=== PATIENT | male | born 1935 | race Caucasian/White ===

== ENCOUNTER 2016-10-04 20:19 | Inpatient (IN) | payer MEDICARE, OTHER ==
[2016-10-04] MEDS ORDERED: NITROGLYCERIN SL TABS 0.4 MG TAB SUBLINGUAL STA (20:38)
[2016-10-04] MEDS ORDERED: ASPIRIN 81 MG CHEW PO STA (20:38)
[2016-10-04 21:08] LABS: Basophils % (A) 1 %; CH 30.5; CHCM 33.6; Eosinophils # (A) 0.2 k/uL (0-0.7); Eosinophils % (A) 3 %; HCT 37.8 % (39.0-53.0); HDW 2.64; HGB 12.7 gm/dL (13.0-17.5); Luc # (Auto) 0.16; Luc % (Auto) 3; Lymphocytes % (A) 32 %; MCH 30.6 pg (25.0-35.0); MCHC 33.6 g/dL (31.0-37.0); Monocytes # (A) 0.4 k/uL (0-1.0); Monocytes % (A) 6 %; Neutrophils # (A) 3.5 k/uL (1.3-7.7); Neutrophils % (A) 56 %; RBC 4.15 m/uL (4.30-5.90); RDW 13.6 % (11.5-15.5); WBC 6.2 k/uL (3.8-10.6); WBC (Perox) 6.24
[2016-10-04 21:24] LABS: Partial Thromboplastin Time 23.5 sec (22.0-30.0); Prothrombin Time 10.4 sec (9.0-12.0)
[2016-10-04 21:32] LABS: ALT 36 U/L (21-72); AST 25 U/L (17-59); Alkaline Phosphatase 63 U/L (38-126); Anion Gap 9 mmol/L; Blood Urea Nitrogen 21 mg/dL (9-20); Calcium 9.4 mg/dL (8.4-10.2); Carbon Dioxide 28 mmol/L (22-30); Chloride 106 mmol/L (98-107); Glucose 119 mg/dL (74-99); Magnesium 1.6 mg/dL (1.6-2.3); Non-African American GFR(MDRD) >60 (>60 ml/min/1.73 sqM); Potassium 4.1 mmol/L (3.5-5.1); Sodium 143 mmol/L (137-145); Total Bilirubin 0.4 mg/dL (0.2-1.3)
--- NOTE | 2016-10-04 21:38 | XR ---
EXAMINATION TYPE: XR chest 1V portable DATE OF EXAM: 10/04/2016 9:12 PM COMPARISON: August 12, 2000 HISTORY: Hypertension, pain TECHNIQUE: Single frontal view of the chest is obtained. FINDINGS: EKG leads noted. There is no focal air space opacity, pleural effusion, or pneumothorax see n. The cardiac silhouette size is within normal limits. The osseous structures are intact. IMPRESSION: No acute process.
--- NOTE | 2016-10-04 21:41 | ED ---
Chest Pain HPI - General Chief Complaint: Chest Pain Stated Complaint: Dr Sent Time Seen by Provider: 10/04/16 20:37 Source: patient, RN notes reviewed Mode of arrival: ambulatory Limitations: no limitations - History of Present Illness Initial Comments: This patient is an 80-year-old man who complains of having some intermittent right-sided chest pains for the past few days. Is not able to characterize the sensation very well, other than calling it "light pains." He indicates the right chest, states that the pains last a few seconds, and that this morning he did have some sweating but not with any of the other episodes. The patient was seen in [facility] and had an EKG and was cleared then followed up today with Dr. Lindsay who stated that he wanted to have the patient admitted, but was reportedly called away having to go to the hospital emergently. MD Complaint: chest pain -: days(s) Onset: during rest Pain Location: right chest Pain Radiation: none Severity: mild Quality: other (Patient is not able to characterize) Consistency: intermittent Improves With: nothing Worsens With: nothing Anginal Symptoms: diaphoresis Treatments Prior to Arrival: none - Related Data Home Medications Medication Instructions Recorded Confirmed Multivitamin [Men's Multi-Vitamin] 1 tab PO DAILY 03/08/14 10/04/16 Aspirin EC [Ecotrin Low Dose] 81 mg PO DAILY 08/11/16 10/04/16 Isosorbide Mononitrate [Isosorbide 30 mg PO QAM 09/06/16 10/04/16 Mononitrate ER] Lisinopril [Zestril] 20 mg PO QAM 09/06/16 10/04/16 Previous Rx's Medication Instructions Recorded Atorvastatin [Lipitor] 20 mg PO DAILY #30 08/14/16 Carvedilol [Coreg] 3.125 mg PO BID-W/MEALS #60 tab 08/14/16 Clopidogrel [Plavix] 75 mg PO DAILY #30 tab 08/14/16 Nitroglycerin Sl Tabs [Nitrostat] 0.4 mg SUBLINGUAL Q5M PRN #25 tab 08/14/16 Allergies Allergy/AdvReac Type Severity Reaction Status Date / Time zolpidem tartrate Allergy Severe Rash/Hives Verified 10/04/16 21:17 [From Ambien] lorazepam [From Ativan] Allergy Unknown Verified 10/04/16 21:17 Penicillins Allergy Unknown Verified 10/04/16 21:17 Review of Systems ROS Statement: Those systems with pertinent positive or pertinent negative responses have been documented in the HPI. ROS Other: All systems not noted in ROS Statement are negative. Constitutional: Denies: fever, chills Respiratory: Denies: cough, dyspnea Cardiovascular: Reports: as per HPI, chest pain. Denies: palpitations, dyspnea on exertion, orthopnea, edema, syncope Gastrointestinal: Denies: abdominal pain, nausea, vomiting Genitourinary: Denies: dysuria, hematuria Musculoskeletal: Denies: back pain Skin: Denies: rash Neurological: Denies: headache, weakness, numbness Psychiatric: Denies: anxiety EKG Findings - EKG Results: EKG: interpreted by LEATHAD, sinus rhythm, normal axis EKG shows: bradycardia (Rate approximately 56 bpm) - Blocks, [place], Hypertrophy, ST Abn: AV and intraventricular conduction: 1 AV block Repolarization changes or abnormalities: early repolarization due to LVH Past Medical History Past Medical History: Cancer, Hyperlipidemia, Hypertension, Myocardial Infarction ([place]), Skin Disorder, Vascular Disorder Additional Past Medical History / Comment(s): Colon/rectal cancer-chemo, 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 psoriasis. kidney stones. fx. neck & back from a fall years ago, R eye cataract. History of Any Multi-Drug Resistant Organisms: None Reported Past Surgical History: Appendectomy, Bladder Surgery, Bowel Resection, Cholecystectomy, Heart Catheterization With Stent, Orthopedic Surgery Additional Past Surgical History / Comment(s): 09/11/16 PTCA with stent to PDA branch of the RCA. Other surgical hx: 08/11/16 CARDIAC STENT. LEFT CATARACT. COLON RESECTION WITH COLOSTOMY. URETERAL STENT/RIGHT GROIN STENT. Carotid surg. ILLIAC STENT 06-02-14. Vertebral stent. Right shoulder surg. Lithotripsy. Past Anesthesia/Blood Transfusion Reactions: No Reported Reaction Date of Last Stent Placement:: 08/11/16 Past Psychological History: No Psychological Hx Reported Smoking Status: Former smoker Past Alcohol Use History: Rare Additional Past Alcohol Use History / Comment(s): STARTED SMOKING AT AGE 18- SMOKED 1 PPD, QUIT 1960'S Past Drug Use History: None Reported - Past Family History Father Additional Family Medical History / Comment(s): AGE 90 HEART Mother Family Medical History: Myocardial Infarction ([place]) Additional Family Medical History / Comment(s): AT AGE 60 MASSIVE [place] General Exam Limitations: no limitations General appearance: alert, in no apparent distress Head exam: Present: atraumatic, normocephalic Eye exam: Present: normal appearance Respiratory exam: Present: normal lung sounds bilaterally. Absent: respiratory distress, wheezes, rales, rhonchi, stridor, chest wall tenderness Cardiovascular Exam: Present: regular rate, normal rhythm, normal heart sounds. Absent: systolic murmur, diastolic murmur, rubs, gallop GI/Abdominal exam: Present: soft. Absent: distended, tenderness, guarding, rebound, mass, pulsatile mass, hernia Extremities exam: Present: normal inspection, normal capillary refill. Absent: pedal edema, calf tenderness Back exam: Present: normal inspection. Absent: CVA tenderness (R), CVA tenderness (L) Neurological exam: Present: alert Skin exam: Present: warm, dry, intact, normal color. Absent: rash, cyanosis, diaphoretic, erythema, petechiae, pallor, mottled Course Vital Signs 10/04/16 10/04/16 10/04/16 20:29 20:43 22:05 Temperature 97.1 F L Pulse Rate 60 59 L 55 L Respiratory 18 18 18 Rate Blood Pressure 137/64 150/71 157/70 O2 Sat by Pulse 97 97 96 Oximetry Disposition Clinical Impression: Chest pain Disposition: ADMITTED IP TO THIS HOSP Condition: Fair
[2016-10-04 21:47] LABS: Creatine Kinase MB 1.2 ng/mL (0.0-2.4); Troponin I 0.012 ng/mL (0.000-0.034)
[2016-10-04] MEDS ORDERED: NITROGLYCERIN SL TABS 0.4 MG TAB SUBLINGUAL PRN (22:42)
[2016-10-05 02:45] LABS: Cholesterol 178 mg/dL (<200); HDL Cholesterol 22 mg/dL (40-60)
[2016-10-05 02:59] LABS: Triglycerides 647 mg/dL (<150)
[2016-10-05 03:01] LABS: Creatine Kinase MB 0.9 ng/mL (0.0-2.4); Troponin I 0.016 ng/mL (0.000-0.034)
[2016-10-05] MEDS: CARVEDILOL 3.125 MG TAB PO SCH ×2 (07:26→18:32)
[2016-10-05] MEDS: ATORVASTATIN 20 MG TAB PO SCH (07:27)
[2016-10-05] MEDS: CLOPIDOGREL 75 MG TAB PO SCH (07:28)
[2016-10-05] MEDS: ISOSORBIDE MONONITRATE ER 30 MG TAB.ER.24H PO SCH (07:28)
[2016-10-05] MEDS: MULTIVITAMINS, THERA 1 EACH TAB PO SCH (07:29)
[2016-10-05] MEDS: ASPIRIN 325 MG TAB PO SCH (07:31)
[2016-10-05] MEDS ORDERED: LISINOPRIL 20 MG TAB PO SCH (09:00)
[2016-10-05 09:47] LABS: Creatine Kinase MB 0.8 ng/mL (0.0-2.4); Troponin I 0.018 ng/mL (0.000-0.034)
[2016-10-05] MEDS ORDERED: LISINOPRIL 20 MG TAB PO ONE (12:16)
--- NOTE | 2016-10-05 16:52 | HP ---
DATE OF ADMISSION: 10/05/2016. CHIEF COMPLAINT: Chest pain. HISTORY OF PRESENT ILLNESS: This is an 80-year-old white male who recently had myocardial infarction and cardiac catheterization and stent placements and the patient started experiencing some chest pain on the right side and this was light and was coming and going but no radiation. No associated shortness of breath and the patient apparently went to [place] emergency room and the EKG and other evaluations were negative for any cardiac chest pain. Following this patient saw Dr. Lindsay his dispatch manager and Dr. Lindsay felt that he had to be hospitalized and further evaluated. Accordingly, patient came to [facility] emergency room, [facility] emergency room and patient was evaluated in the ER and then admitted to the hospital for further evaluation and treatment. His EKG did not show any acute changes and troponin was 0.012 and cardiac enzymes were within normal limits. Sodium is 143, potassium 4.1, BUN 21, creatinine 0.9, and cholesterol 178, his CBC showed a WBC count of 6.7 and hemoglobin 12.7 and platelet count 221. The patient was admitted to the hospital for further evaluation and treatment. His past medical history reveals that he has coronary artery disease and has had a myocardial infarction in the past and also has had stent placements in the past. He also has peripheral vascular disease and has had a stent placement in the iliac artery and he has a history of rectal cancer and has had surgery and radiation treatment. He also has hypertensive cardiovascular disease, hyperlipidemia. His current medications include: 1. Aspirin 325 mg p.o. daily. 2. Atorvastatin 20 mg daily. 3. Coreg 3.125 mg p.o. daily. 4. Plavix 25 mg p.o. daily. 5. Imdur 30 mg p.o. daily. 6. Lisinopril 20 mg p.o. daily. 7. Nitroglycerine sublingual p.r.n. He does not smoke and he does not drink alcohol. He has questionable allergy to PENICILLIN AND LORAZAPAM. Family history is strongly positive for cancer and heart disease. REVIEW OF SYSTEMS: Patient denies any headache. Appetite has been good. Bowels sounds are regular. He has chest pain as mentioned before. He has no cough. He has no abdominal pain. He has no polyuria or dysuria. He has no neurological symptoms. PHYSICAL EXAMINATION: Reveals an 80-year-old white male, well-nourished and well developed. He is alert and oriented. He is in no acute distress. There is no jaundice. There is no generalized lymphadenopathy. There are no petechiae or bruises. Pulse 80 per minute, pulse is 66 per minute, regular. Blood pressure 150/70. There is no jaundice. There is no generalized lymphadenopathy. There are no petechiae or bruises. Examination of the ENT negative. Neck is supple. There is no jugular venous distention. There is no goiter. There is no carotid bruit. Heart is in sinus rhythm. Lungs are clear to auscultation and percussion. ABDOMEN: Soft and nontender. There is no mass palpable. Examination of the lower extremities reveal no pitting edema. Neurologic examination does not reveal any localizing signs. IMPRESSION: 1. Chest pain, rule out unstable angina. 2. Coronary artery disease, status post myocardial infarction and also past history of stent placement. 3. Hypertensive cardiovascular disease. 4. Past history of rectal cancer. 5. History of nephrolithiasis and history of stent placement. 6. Peripheral vascular disease, status post stent placement in the iliac artery. 7. Low back pain and has a history of back surgery. PLAN: The patient will be admitted to the hospital. His heart will be monitored with telemetry and serial EKGs and cardiac enzymes. We will have dispatch manager, Dr. Lindsay see the patient in consultation. Prognosis is guarded. The diagnoses, prognosis, and therapeutic plans were discussed in detail with the patient.
--- NOTE | 2016-10-06 00:32 | P.CRDCN ---
History of Present Illness Consult date: 10/05/16 Chief complaint: Chest discomfort History of present illness: This is a pleasant 80-year-old gentleman with a past medical history significant for coronary artery disease and status post stenting of the RCA and left circumflex and no one C dear residual coronary artery disease involving the mid LAD, hypertension, dyslipidemia, was sent to the emergency room by myself for further evaluation. The patient was in his usual state of health that about 2 days ago when he started experiencing chest discomfort as sharp kind of discomfort in the mid of the chest. I saw the patient in the office at [facility] yesterday and he was experiencing chest discomfort. I referred him to be admitted to the hospital. The EKG showed sinus mechanism with ST changes seems to be the same as before. He underwent serial cardiac enzymes came in to be unremarkable. The patient's blood pressure continues to be out of control and I am concerning about hypertensive emergency and chest discomfort secondary to hypertensive emergency. I increase the dose of lisinopril to 20 mg by mouth twice a day. We'll continue following up with the patient and adjust her blood pressure medication to get his blood pressure below 1 40 mmHg. If he continues to have chest discomfort I will consider proceeding with a heart catheterization. Past Medical History Past Medical History: Coronary Artery Disease (CAD), Cancer, Chest Pain / Angina , Hyperlipidemia, Hypertension, Myocardial Infarction ([place]), Osteoarthritis ([place]) , Renal Disease, Skin Disorder, Vascular Disorder Additional Past Medical History / Comment(s): 1998 Colon/rectal cancer-colectomy /colostomy/chemo,radiation, psoriasis, kidney stones, fx. neck & back/ concussion from a fall years ago, 2006 pneumonia with bacteremia, diverticular dx. Last Myocardial Infarction Date:: 08/11/16 History of Any Multi-Drug Resistant Organisms: None Reported Past Surgical History: Appendectomy, Bladder Surgery, Bowel Resection, Cholecystectomy, Heart Catheterization With Stent, Orthopedic Surgery Additional Past Surgical History / Comment(s): 09/11/16 PTCA with stent to PDA branch of the RCA. Other surgical hx: 08/11/16 CARDIAC STENT. LEFT/RIGHT CATARACT, COLON RESECTION WITH COLOSTOMY, colonoscopies, bilateral iliac STENTs. R Carotid angioplasty, vertebral stent, right shoulder surg for small cracked bone, cystoscopies, lithotripsy, right ureteral stent, lumbar spurs removed, cervical fusion, feeding tube post cervical sx, laparotomy with extensive lysis of adhesions. Past Anesthesia/Blood Transfusion Reactions: No Reported Reaction Date of Last Stent Placement:: 09/11/16 Past Psychological History: No Psychological Hx Reported Additional Psychological History / Comment(s): Pt resides with his spouse. He is independent. Smoking Status: Former smoker Past Alcohol Use History: Rare Additional Past Alcohol Use History / Comment(s): STARTED SMOKING AT AGE 18- SMOKED 1 PPD, QUIT about 1970. Past Drug Use History: None Reported - Past Family History Father Additional Family Medical History / Comment(s): AGE 90 HEART Mother Family Medical History: Myocardial Infarction ([place]) Additional Family Medical History / Comment(s): AT AGE 60 MASSIVE [place] Medications and Allergies Home Medications Medication Instructions Recorded Confirmed Type Multivitamin [Men's Multi-Vitamin] 1 tab PO DAILY 03/08/14 10/04/16 History Aspirin EC [Ecotrin Low Dose] 81 mg PO DAILY 08/11/16 10/04/16 History Isosorbide Mononitrate [Isosorbide 30 mg PO QAM 09/06/16 10/04/16 History Mononitrate ER] Lisinopril [Zestril] 20 mg PO QAM 09/06/16 10/04/16 History Allergies Allergy/AdvReac Type Severity Reaction Status Date / Time zolpidem tartrate Allergy Severe Rash/Hives Verified 10/04/16 21:17 [From Ambien] lorazepam [From Ativan] Allergy Unknown Verified 10/04/16 21:17 Penicillins Allergy Unknown Verified 10/04/16 21:17 Physical Exam Vitals: Vital Signs Temp Pulse Pulse Resp BP BP BP 10/05/16 23:21 51 L 18 181/86 10/05/16 20:00 53 L 18 10/05/16 19:43 98.6 F 54 L 18 169/72 10/05/16 16:06 168/64 10/05/16 15:55 98.0 F 55 L 16 186/75 10/05/16 11:50 188/86 10/05/16 11:31 98.0 F 50 L 18 192/90 10/05/16 10:42 58 L 14 159/81 10/05/16 09:23 52 L 14 167/77 10/05/16 08:18 54 L 14 185/80 10/05/16 07:20 66 15 186/82 10/05/16 06:54 51 L 18 194/84 10/05/16 04:00 49 L 18 166/72 10/05/16 03:00 49 L 18 152/67 10/05/16 01:00 56 L 18 157/72 Pulse Ox 10/05/16 23:21 96 10/05/16 20:00 10/05/16 19:43 96 10/05/16 16:06 10/05/16 15:55 94 L 10/05/16 11:50 10/05/16 11:31 97 10/05/16 10:42 97 10/05/16 09:23 96 10/05/16 08:18 95 10/05/16 07:20 97 10/05/16 06:54 95 10/05/16 04:00 95 10/05/16 03:00 95 10/05/16 01:00 95 Intake and Output 10/05/16 10/05/16 10/06/16 14:59 22:59 06:59 Intake Total 118 118 Balance 118 118 Intake: Oral 118 118 Other: Weight 76.4 kg Patient Weight 10/06/16 06:59 Weight 76.4 kg - Constitutional General appearance: no acute distress - Respiratory Respiratory: bilateral: CTA - Cardiovascular Rhythm: regular Heart sounds: normal: S1, S2 Abnormal Heart Sounds: systolic murmur Results 10/04/16 21:02 10/04/16 21:02 Cardiac Enzymes 10/05/16 10/05/16 Range/Units 02:15 09:00 CK-MB (CK-2) 0.9 0.8 (0.0-2.4) ng/mL Troponin I 0.016 0.018 (0.000-0.034) ng/mL Lipids 10/05/16 Range/Units 02:15 Triglycerides 647 H (<150) mg/dL Cholesterol 178 (<200) mg/dL HDL Cholesterol 22 L (40-60) mg/dL Current Medications Generic Name Dose Route Start Last Admin Trade Name Freq PRN Reason Stop Dose Admin Aspirin 325 mg 10/05/16 09:00 10/05/16 07:31 Aspirin PO 325 mg DAILY SERGO Administration Atorvastatin Calcium 20 mg 10/05/16 09:00 10/05/16 07:27 Lipitor PO 20 mg DAILY SERGO Administration Carvedilol 3.125 mg 10/05/16 07:30 10/05/16 18:32 Coreg PO 3.125 mg BID-W/MEALS SERGO Administration Clopidogrel Bisulfate 75 mg 10/05/16 09:00 10/05/16 07:28 Plavix PO 75 mg DAILY SERGO Administration Isosorbide Mononitrate 30 mg 10/05/16 09:00 10/05/16 07:28 Imdur PO 30 mg QAM SERGO Administration Lisinopril 20 mg 10/06/16 09:00 Zestril PO BID [facility] Multivitamins 1 each 10/05/16 09:00 10/05/16 07:29 Theragran PO 1 each DAILY [facility] Administration Nitroglycerin 0.4 mg 10/04/16 22:42 Nitrostat SUBLINGUAL Q5M PRN Chest Pain Sodium Chloride 10 ml 10/05/16 09:00 10/05/16 11:16 Saline Flush IV Not Given BID SERGO Intake and Output 10/05/16 10/05/16 10/06/16 14:59 22:59 06:59 Intake Total 118 118 Balance 118 118 Intake: Oral 118 118 Other: Weight 76.4 kg Patient Weight 10/06/16 06:59 Weight 76.4 kg Assessment and Plan Plan: Assessment #1 hypertension emergency #2 chest discomfort #3 known CAD #4 multiple comorbid conditions Plan #1 the patient was ruled out for acute coronary event #2 increase the dose of lisinopril to 20 mg by mouth twice a day #3 continue following up with the patient
[2016-10-06] MEDS: CARVEDILOL 3.125 MG TAB PO SCH ×2 (08:03→19:08)
[2016-10-06] MEDS: ASPIRIN 325 MG TAB PO SCH (08:03)
[2016-10-06] MEDS: CLOPIDOGREL 75 MG TAB PO SCH (08:03)
[2016-10-06] MEDS: LISINOPRIL 20 MG TAB PO SCH ×2 (08:04→20:35)
[2016-10-06] MEDS: ATORVASTATIN 20 MG TAB PO SCH (08:04)
[2016-10-06] MEDS: MULTIVITAMINS, THERA 1 EACH TAB PO SCH (08:04)
[2016-10-06] MEDS: ISOSORBIDE MONONITRATE ER 30 MG TAB.ER.24H PO SCH (08:04)
[2016-10-06] MEDS ORDERED: amLODIPine 10 MG TAB PO SCH (14:30)
--- NOTE | 2016-10-06 15:43 | PN ---
Mr. Derrick Hill is doing fairly well from cardiac standpoint. He has not had any further chest discomfort. No dizziness or lightheadedness. His blood pressure is still elevated. He has known coronary disease with status post coronary artery stenting and he is awaiting possible repeat cardiac catheterization. However, this is being delayed because of his elevated blood pressure readings. Past medical history of coronary artery disease and colon cancer, appendectomy. On examination, heart rate is in 40s, afebrile, 98.1 degrees Fahrenheit, blood pressure is 178/72 mmHg Head and neck examination is normal. Heart sounds are normal. Lungs are clear to auscultation. Extremities are warm, no edema. This is a very soft systolic ( ) audible. IMPRESSION: 1. Uncontrolled hypertension. 2. Coronary artery disease, status post coronary artery stenting and awaiting repeat catheterization ( ). SUGGEST: Add amlodipine 10 mg p.o. daily to current regimen. Continue Coreg 3.125 mg twice daily. Continue lisinopril 20 mg twice daily. ( ) blood pressure is better controlled, we can proceed with coronary angiography.
--- NOTE | 2016-10-06 16:09 | PN ---
DATE OF SERVICE: 10/06/2016 This is an 80-year-old white male who was admitted to the hospital with hypertensive emergency and the patient recently had a myocardial infarction and cardiac catheterization and stent placement. The patient developed some right chest pain and went to [place] [facility] and he also saw Dr. Lindsay his asbestos shingle roofer and any acute cardiac event was ruled out. The patient was admitted to the hospital for further evaluation and treatment of hypertension. The patient has been placed back on his previous home medications and lisinopril has been increased to 20 mg p.o. b.i.d. Patient today is fairly comfortable, denies any chest pain or shortness of breath and blood pressure has been still on the higher side and it is not stable. His vital signs are otherwise stable. Dr. Frausto is going to see the patient. He denies any shortness of breath, chest pain or any abdominal discomfort. We will continue monitoring his blood pressure and will make adjustment of the medications and when his blood pressure is stable, he will be discharged home when it is okay with the asbestos shingle roofer. The diagnoses, prognosis, and therapeutic plans were discussed in detail with the patient.
[2016-10-07] MEDS: ATORVASTATIN 20 MG TAB PO SCH (08:16)
[2016-10-07] MEDS: ISOSORBIDE MONONITRATE ER 30 MG TAB.ER.24H PO SCH (08:16)
[2016-10-07] MEDS: CARVEDILOL 3.125 MG TAB PO SCH ×2 (08:16→18:12)
[2016-10-07] MEDS: ASPIRIN 325 MG TAB PO SCH (08:16)
[2016-10-07] MEDS: MULTIVITAMINS, THERA 1 EACH TAB PO SCH (08:17)
[2016-10-07] MEDS: LISINOPRIL 20 MG TAB PO SCH ×2 (08:17→21:08)
[2016-10-07] MEDS: CLOPIDOGREL 75 MG TAB PO SCH (08:17)
[2016-10-07] MEDS: amLODIPine 10 MG TAB PO SCH (13:00)
--- NOTE | 2016-10-07 14:19 | PN ---
DATE OF SERVICE: 10/07/2016 This is an 80-year-old white male who was admitted with uncontrolled hypertension and he recently had an acute myocardial infarction and has had a cardiac catheterization and has stent placements and patient initially started as right-sided chest pain and he was seen in [place] emergency room and a cardiac event causing the chest pain was ruled out and Dr. Lindsay saw the patient and he recommended getting hospitalized because of uncontrolled hypertension. Patient was placed back on his previous medications and he was seen by Dr. Frausto in consultation and he has increased the lisinopril to 20 mg b.i.d. and also has started on amlodipine. Today patient's blood pressure seems to be under control and it is 154/78 and his blood pressure is controlled and stabilized, Dr. Frausto is planning to have a coronary angiogram. His vital signs are stable. He denies any chest pain or shortness of breath. No acute cardiorespiratory problems. Prognosis guarded.
--- NOTE | 2016-10-07 14:47 | P.PN ---
Subjective Patient is doing well. No chest discomfort no undue shortness of breath no dizziness lightheadedness or palpitations Review of systems: No fever chills or rigors, no cough, phlegm or expectoration , no nausea, vomiting or diarrhea, no hematuria, dysuria, no musculoskeletal complaints, no strokes or seizures, no skin lesions. On examination his blood pressure control is improving Heart sounds are normal No murmurs or gallops normal S1 normal S2 Breath sounds are normal no rhonchi no crackles Abdomen soft nontender Extremities warm no edema Impression Uncontrolled hypertension, improving Coronary artery disease Recurrent angina Plan Continue amlodipine Discussed with Dr. Lindsay Coronary angiography on Saturday after blood pressure remains well controlled Objective - Vital Signs Vital signs: Vital Signs Temp 97.8 F 10/07/16 08:00 Pulse 53 L 10/07/16 12:00 Resp 16 10/07/16 12:00 BP 147/64 10/07/16 12:00 Pulse Ox 96 10/07/16 13:00 Intake & Output 10/06/16 10/07/16 10/07/16 18:59 06:59 18:59 Intake Total 500 Balance 500 Intake: Oral 500 Other: Voiding Method Toilet Toilet Toilet - Labs CBC & Chem 7: 10/04/16 21:02 10/04/16 21:02
[2016-10-08] MEDS: CLOPIDOGREL 75 MG TAB PO SCH (09:25)
[2016-10-08] MEDS: ISOSORBIDE MONONITRATE ER 30 MG TAB.ER.24H PO SCH (09:25)
[2016-10-08] MEDS: LISINOPRIL 20 MG TAB PO SCH ×2 (09:25→21:49)
[2016-10-08] MEDS: ASPIRIN 325 MG TAB PO SCH (09:25)
[2016-10-08] MEDS: CARVEDILOL 3.125 MG TAB PO SCH ×2 (09:26→18:29)
[2016-10-08] MEDS: MULTIVITAMINS, THERA 1 EACH TAB PO SCH (09:26)
[2016-10-08] MEDS ORDERED: SODIUM CHLORIDE 0.9% 1,000 ML in EMPTY BAG 1 BAG IV ONE (10:09)
--- NOTE | 2016-10-08 10:39 | PN ---
Mr. Hill is lying comfortably in bed. Denies any chest discomfort, dizziness, lightheadedness. His blood pressure is still elevated at between 150 to 160 millimeters of Hg. Head and neck examination is normal. Heart sounds are normal. Breath sounds are normal. No rhonchi. No crackles. Heart sounds. No murmurs or gallops. ABDOMEN: Soft, nontender. EXTREMITIES: Warm. No edema. IMPRESSION: 1. Hypertension. 2. Known coronary artery disease. 3. Recurrent episodes of angina, for which he was admitted. SUGGEST: Add Dyazide today to antihypertensive regimen and proceed with coronary angiogram tomorrow with Dr. Lindsay.
[2016-10-08] MEDS: TRIAMTERENE-HCTZ 37.5-25MG 1 EACH CAP PO SCH (11:16)
[2016-10-08] MEDS: ATORVASTATIN 20 MG TAB PO SCH (14:23)
[2016-10-08] MEDS: amLODIPine 10 MG TAB PO SCH (14:23)
--- NOTE | 2016-10-08 20:15 | PN ---
DATE OF SERVICE: 10/08/2016 This 80-year-old white male who was admitted with persistently high blood pressure and the right anterior chest pain and patient was admitted to the hospital for further evaluation and treatment. Patient prior to admission, patient saw Dr. Lindsay and he recommended getting admitted to the hospital and since admission, the patient was seen by Dr. Frausto in consultation. The patient's blood pressure is getting fairly under good control. His blood pressure today is 144/74. He denies any chest pain and shortness of breath and he has no shortness of breath. His heart is in sinus rhythm. Lungs are clear. There are no acute cardiorespiratory problems. Dr. Frausto is recommending for him to have coronary angiogram, which will be done tomorrow by Dr. Lindsay. Otherwise his vital signs are stable. Prognosis is guarded.
[2016-10-09] MEDS: LISINOPRIL 20 MG TAB PO SCH ×2 (06:54→21:24)
[2016-10-09] MEDS: ATORVASTATIN 20 MG TAB PO SCH (06:54)
[2016-10-09] MEDS: ISOSORBIDE MONONITRATE ER 30 MG TAB.ER.24H PO SCH (06:54)
[2016-10-09] MEDS: CLOPIDOGREL 75 MG TAB PO SCH (06:54)
[2016-10-09] MEDS: CARVEDILOL 3.125 MG TAB PO SCH ×2 (06:54→17:29)
[2016-10-09] MEDS: TRIAMTERENE-HCTZ 37.5-25MG 1 EACH CAP PO SCH (06:55)
[2016-10-09] MEDS: ASPIRIN 325 MG TAB PO SCH (06:55)
[2016-10-09] MEDS: amLODIPine 10 MG TAB PO SCH (17:29)
[2016-10-09] MEDS: MULTIVITAMINS, THERA 1 EACH TAB PO SCH (17:29)
--- NOTE | 2016-10-09 18:12 | PN ---
DATE OF SERVICE: 10/09/2016 This 80-year-old white male who is known to have coronary artery disease and has had recent stent placements and also recent acute myocardial infarction and patient was admitted because he has some right-sided chest pain and very severe hypertension. The patient was seen by Dr. Frausto in consultation and he was following the patient. His blood pressure is under control now and Dr. Frausto recommended him to have a cardiac catheterization because of chest pain. Dr. Lindsay has scheduled him for cardiac catheterization for tomorrow. His vital signs are stable. Heart is in sinus rhythm. Lungs are clear. Patient states that he had some chest discomfort on the right side this morning, but he is doing okay now. The plan is for him to go for a cardiac catheterization tomorrow. The overall prognosis is guarded.
[2016-10-10] MEDS: ASPIRIN 325 MG TAB PO SCH (05:55)
[2016-10-10] MEDS: CLOPIDOGREL 75 MG TAB PO SCH (05:55)
[2016-10-10] MEDS: ATORVASTATIN 20 MG TAB PO SCH (05:56)
[2016-10-10] MEDS: ISOSORBIDE MONONITRATE ER 30 MG TAB.ER.24H PO SCH (05:56)
[2016-10-10] MEDS: CARVEDILOL 3.125 MG TAB PO SCH ×2 (05:56→17:13)
[2016-10-10] MEDS: TRIAMTERENE-HCTZ 37.5-25MG 1 EACH CAP PO SCH (05:56)
[2016-10-10] MEDS: LISINOPRIL 20 MG TAB PO SCH ×2 (05:56→21:17)
[2016-10-10] MEDS ORDERED: SODIUM CHLORIDE 0.9% 1,000 ML IV ONE (07:29)
[2016-10-10] MEDS: MIDAZOLAM 2 MG/2 ML VIAL IVP ONE ×2 (07:44→07:54)
[2016-10-10] MEDS ORDERED: LIDOCAINE 2% INJ 20 MG/ML SQ ONE (07:46)
[2016-10-10] MEDS ORDERED: BIVALIRUDIN BOLUS 250 MG/50 ML IV ONE (08:15)
[2016-10-10] MEDS ORDERED: BIVALIRUDIN 250 MG in SODIUM CHLORIDE 0.9% 50 ML IV ONE (08:16)
[2016-10-10] MEDS ORDERED: ADENOSINE 90 MG in SODIUM CHLORIDE 0.9% 60 ML IVP ONE (08:28)
[2016-10-10] MEDS ORDERED: fentaNYL (PF) 50 MCG/ML 2 ML AMP IV ONE (08:30)
[2016-10-10] MEDS: NITROGLYCERIN 1000MCG/10ML SYRINGE INTRACORON ONE ×2 (08:41→08:49)
[2016-10-10] MEDS ORDERED: IOHEXOL 350 MG/ML 100 ML BOTTLE INJ ONE (08:55)
[2016-10-10] MEDS ORDERED: CLOPIDOGREL 75 MG TAB PO ONE (08:57)
[2016-10-10] MEDS ORDERED: ZOLPIDEM 5 MG TAB PO PRN (09:32)
[2016-10-10] MEDS ORDERED: NITROGLYCERIN SL TABS 0.4 MG TAB SUBLINGUAL PRN (09:32)
[2016-10-10] MEDS ORDERED: MAG HYDROX/AL HYDROX/SIMETH 30 ML CUP PO PRN (09:32)
[2016-10-10] MEDS ORDERED: RX INFO: IV CONTRAST WAS GIVEN 1 EACH MISC MISCELLANE PRN (09:32)
[2016-10-10] MEDS ORDERED: SODIUM CHLORIDE 0.9% 1,000 ML IV SCH (09:45)
[2016-10-10] MEDS: amLODIPine 10 MG TAB PO SCH (17:13)
[2016-10-10] MEDS: MULTIVITAMINS, THERA 1 EACH TAB PO SCH (17:13)
--- NOTE | 2016-10-10 17:50 | PN ---
DATE OF SERVICE: 10/10/2016 This 80-year-old white male was admitted with chest pain and persistently high blood pressure. Patient's blood pressure was controlled with medications. He was seen by Dr. Frausto in consultation. He made some adjustment to the blood pressure medication he had been taking. When his blood pressure came to be under control, Dr. Frausto recommended that he have a cardiac catheterization. Accordingly, patient had a cardiac catheterization today. He was found to have 2 blockages, for which 2 stents were inserted, one in the LAD. Post procedure, patient was doing well, his vital signs stable. His symptoms cleared. Patient is going to be monitored overnight and he will possibly be discharged home tomorrow. The diagnoses, prognosis and therapeutic plans were discussed in detail with the patient and also with the patient's .
--- NOTE | 2016-10-10 18:15 | CC ---
DATE OF SERVICE: October 10, 2016 PERFORMING PHYSICIAN: Michele Lindsay M.D., metals sales representative. PROCEDURE PERFORMED: 1. Selective right and left coronary angiogram. 2. Fractional flow reserve, FFR of the LAD. 3. Successful stenting of the mid LAD using 2.5 x 15 mm Xience CARLTON with a good angiographic results. 4. Successful stenting of the proximal LAD using 2.75 x 3 x 28 mm Xience CARLTON with a good angiographic results. INDICATION: This is a pleasant 80-year-old gentleman who is known to have severe coronary artery disease and prior stenting of the RCA and left circumflex presented back to the hospital complaining of chest discomfort consistent with angina. Approach: Right common femoral artery. COMPLICATIONS: None. Level sedation: Moderate. PROCEDURE DESCRIPTION: After obtaining informed consent, the patient was brought to the cardiac slab lifting supervisor. Right common femoral artery was cannulated using micropuncture technique. Micropuncture wire passed easily. Then I placed 6 Citizen Of [place] sheath in the right common femoral artery. Subsequently I did selective right and left coronary angiogram using JR4 for the right and XP 3.5 LAD guide for the left coronary artery. Subsequently, I did fractional flow reserve of the FFR of the LAD and then I stented the LAD. Please see separate paragraph for that. SELECTIVE CORONARY ANGIOGRAM: 1. The right coronary artery is a large-caliber vessel, a dominant vessel, calcified vessel. The proximal RCA has mild disease only. The mid RCA appeared to be angiographically normal. The mid RCA distally has mild disease only and bifurcates into PDA and PLV branches. The PDA stent appeared to be patent and the PLV branch appeared to have mild disease only. 2. The left main is angiographically normal. It bifurcates into the left circumflex and left anterior descending artery. 3. Left circumflex is a large-caliber vessel and it is a nondominant vessel. The proximal left circumflex appeared to have mild disease only and gives rises into the first obtuse marginal branch, which in the proximal portion appeared to have mild disease only and in the midportion is stented and the stent is patent and distally has severe disease but the artery becomes small caliber vessel. The left circumflex continues after that as a medium caliber vessel in the AV groove. 4. Left anterior descending artery: The proximal LAD has a long tubular lesion in the range 60%. The mid LAD has another tubular lesion seems to be in the range of 60 percent. This is just distal to the bifurcation of the second diagonal branch, which seems to be angiographically normally. The first diagonal is angiographically normally. The LAD distally is normal. FFR of the LAD: Anticoagulation was initiated using Angiomax. After zeroing the Doppler wire and equalization between the Doppler wire and guiding catheter, which was an XB35 LAD guide. We did an FFR per IV adenosine infusion. The FFR across the 2 lesions, came in to be ischemic at 0.68. I did not even give adenosine to induce hyperemia. I did pull the wire across the distal lesion and the FFR was 0.83 but it came back to below 0.80 with adenosine. PCI of the LAD: I continued anticoagulation with Angiomax. Subsequently, I advanced a Whisper wire, across 2 lesions, to the LAD. I did balloon angioplasty of the distal lesion using 2.0 x 12 mm balloon. Then I did stent that lesion using 2.5 x 15 mm Xience CARLTON, where the stent was positioned under fluoroscopy guidance and deployed under its nominal pressure. For the lesion in the proximal portion I did direct stenting using 2.75 x 28 mm Xience CARLTON, where the stent was positioned again under fluoroscopy guidance and it was deployed under its nominal pressure. The following angiogram showed good angiographic results. CONCLUSION: 1. Patent stents in both the right coronary artery and left circumflex coronary arteries. 2. Intermediate disease involving the proximal LAD and mid left anterior descending artery with FFR of both lesions came in to be ischemic. 3. Successful stenting of the mid LAD using 2.5 x 15 mm Xience CARLTON with a good angiographic results. 4. Successful stenting of the proximal LAD using 2.75 x 28 mm Xience CARLTON with good angiographic results. Postprocedure management: 1. Dual antiplatelet therapy. 2. Coronary risk factor modifications. 3. Follow up with the patient.
[2016-10-11] MEDS: CARVEDILOL 3.125 MG TAB PO SCH (06:27)
[2016-10-11 07:26] LABS: Non-African American GFR(MDRD) >60 (>60 ml/min/1.73 sqM)
[2016-10-11] MEDS: ATORVASTATIN 20 MG TAB PO SCH (08:35)
[2016-10-11] MEDS: ASPIRIN 325 MG TAB PO SCH (08:35)
[2016-10-11] MEDS: CLOPIDOGREL 75 MG TAB PO SCH (08:35)
[2016-10-11] MEDS: ISOSORBIDE MONONITRATE ER 30 MG TAB.ER.24H PO SCH (08:36)
[2016-10-11] MEDS: MULTIVITAMINS, THERA 1 EACH TAB PO SCH (08:36)
[2016-10-11] MEDS: LISINOPRIL 20 MG TAB PO SCH (08:36)
[2016-10-11] MEDS: TRIAMTERENE-HCTZ 37.5-25MG 1 EACH CAP PO SCH (08:36)
[2016-10-11 09:50] VITALS: BP 120/54; PULSE 55; RESP 14; TEMP 97.2
--- NOTE | 2016-10-11 11:10 | P.PN ---
Subjective Principal diagnosis: Chest pain This is a pleasant 80-year-old gentleman with past medical history significant for coronary artery disease and prior RCA stent, prior circumflex stent, with residual coronary artery disease involving the LAD, hypertension, hyperlipidemia , patient was experiencing chest pain as an outpatient and is referred to come to the hospital for admission. He underwent a cardiac catheterization yesterday with subsequent FFR and successful stenting of the mid LAD and proximal LAD. EKG was reviewed this morning which showed normal sinus rhythm with anterior lateral ST-T wave changes consistent with prior EKG. Lab data pending. Patient feels well overall, denies any chest pain or difficulty in breathing. Objective - Vital Signs Vital signs: Vital Signs Temp 97.2 F L 10/11/16 08:00 Pulse 55 L 10/11/16 08:00 Resp 14 10/11/16 08:00 BP 120/54 10/11/16 08:00 Pulse Ox 94 L 10/11/16 08:00 Intake & Output 10/10/16 10/11/16 10/11/16 18:59 06:59 18:59 Intake Total 510 800 Output Total 1275 2250 Balance -765 -1450 Intake: IV 288 200 Sodium Chloride 0.9% 1, 200 000 ml @ 100 mls/hr IV . Q10H SERGO Rx#:[id number] Oral 222 600 Output: Urine 1175 2100 Stool 150 Urine/Stool Mix 100 Other: Voiding Method Toilet Toilet Urinal - Exam PHYSICAL EXAMINATION: HEENT: Head is atraumatic, normocephalic. Pupils equal, round. Neck is supple. There is no elevated jugular venous pressure. HEART EXAMINATION: Heart S1 and S2 systolic murmur is heard. CHEST EXAMINATION: Lungs are clear to auscultation and precussion. No chest wall tenderness is noted on palpation or with deep breathing. ABDOMEN: Soft, nontender. Bowel sounds are heard. No organomegaly noted. Right groin soft, no evidence of any hematoma. EXTREMITIES: 2+ peripheral pulses with no evidence of peripheral edema and no calf tenderness noted. NEUROLOGIC patient is awake, alert and oriented -3. . - Labs CBC & Chem 7: 10/04/16 21:02 10/11/16 06:15 Assessment and Plan (1) Presence of stent in LAD coronary artery Status: Acute (2) Chest pain Status: Acute (3) CAD (coronary artery disease) Status: Acute (4) History of colon cancer Status: Acute (5) History of smoking Status: Acute (6) Hypertension Status: Acute (7) PAD (peripheral artery disease) Status: Acute (8) PVD (peripheral vascular disease) Status: Acute (9) Presence of stent in left circumflex coronary artery Status: Acute (10) S/P insertion of iliac artery stent Status: Acute Plan: From cardiology standpoint, patient may be able to be discharged home today. A follow-up appointment will be made in the office with Dr. Blackmon post discharge. Prescriptions for his medications have been provided. DNP note has been reviewed, I agree with a documented findings and plan of care. Patient was seen and examined.
[2016-10-11 11:41] LABS: CH 30.5; CHCM 32.8; HCT 37.9 % (39.0-53.0); HDW 2.58; HGB 12.4 gm/dL (13.0-17.5); MCH 30.7 pg (25.0-35.0); MCHC 32.8 g/dL (31.0-37.0); MCV 93.5 fL (80.0-100.0); Mean Platelet Volume 9.7; RBC 4.06 m/uL (4.30-5.90); RDW 13.6 % (11.5-15.5); WBC 6.6 k/uL (3.8-10.6)
[2016-10-11 11:47] LABS: ALT 37 U/L (21-72); AST 22 U/L (17-59); Alkaline Phosphatase 55 U/L (38-126); Anion Gap 12 mmol/L; Blood Urea Nitrogen 21 mg/dL (9-20); Calcium 9.2 mg/dL (8.4-10.2); Carbon Dioxide 24 mmol/L (22-30); Chloride 107 mmol/L (98-107); Glucose 98 mg/dL (74-99); Non-African American GFR(MDRD) >60 (>60 ml/min/1.73 sqM); Potassium 4.5 mmol/L (3.5-5.1); Sodium 143 mmol/L (137-145); Total Bilirubin 0.5 mg/dL (0.2-1.3); Total Protein 6.7 g/dL (6.3-8.2)
[2016-10-11] MEDS: amLODIPine 10 MG TAB PO SCH (13:47)
--- NOTE | 2016-11-18 08:59 | DS ---
DATE OF ADMISSION: 10/09/2016 DATE OF DISCHARGE: 10/11/2016 DISCHARGE DIAGNOSES: 1. Chest pain, unstable angina. 2. Coronary artery disease with a past history of myocardial infarction. 3. Status post cardiac catheterization and stent placement. 4. History of cancer of the rectum. 5. Peripheral vascular disease with history of stent placement in the iliac artery. This is an 80-year-old white male who recently had a myocardial infarction and a cardiac catheterization and stent placements and the patient started experiencing some chest pain in the right side of the chest and the patient was seen in [facility]. A cardiac evaluation there was essentially negative with normal cardiac enzymes. The patient continued to have chest pain and Dr. Lindsay recommended that he be admitted to [facility]. He came to the emergency room and his cardiac enzymes and EKG did not show any evidence of any acute myocardial infarction. The patient was admitted for further evaluation and treatment. For details of the physical examination please refer to the history and physical. HOSPITAL COURSE: Patient was placed back on his previous home medications. He was seen by Dr. Frausto in consultation. He was found to have hypertension and this was controlled with medication. Dr. Frausto recommended cardiac catheterization and he had catheterization by Dr. Lindsay and was found to have 2 blockages and 2 stents were inserted. Postprocedure patient was doing well and he was symptom-free. His vital signs were stable and he was discharged home on 10/11/2016 and he was advised to continue on: 1. Plavix 75 mg p.o. daily. 2. Nitroglycerin sublingual p.r.n. 3. Norvasc 10 mg daily. 4. Atorvastatin 20 mg p.o. daily. 5. Coreg 3.125 mg daily. 6. Isosorbide 30 mg p.o. daily. 7. Lisinopril 20 mg p.o. daily. 8. We will continue with his multivitamins. He will be followed by Dr. Lindsay for his cardiac problems and he will be seen in my office for follow-up in a week's time.
== END 2016-10-11 14:05 | disposition home or self-care (01) | DRG 247 ==
LOC: EC 20:19 → 3OBS 22:46 → OBSVTOIN 10-09 12:53 → 6SEL 10-10 09:24
PROVIDERS: ADMIT Internal Medicine; ATTEND Internal Medicine
PROC: 027035Z Dilation of Coronary Artery, One Artery with Two Drug-eluting Intraluminal Devices, Percutaneous Approach (ICD-10-PCS; principal; 2016-10-10 07:30)
PROC: B2111ZZ Fluoroscopy of Multiple Coronary Arteries using Low Osmolar Contrast (ICD-10-PCS; 2016-10-10 07:30)
PROC: 4A033BC Measurement of Arterial Pressure, Coronary, Percutaneous Approach (ICD-10-PCS; 2016-10-10 07:30)
DX: I25.119 Atherosclerotic heart disease of native coronary artery with unspecified angina pectoris (principal); I11.9 Hypertensive heart disease without heart failure; I73.9 Peripheral vascular disease, unspecified; I16.1 Hypertensive emergency; E78.5 Hyperlipidemia, unspecified; L40.9 Psoriasis, unspecified; M19.90 Unspecified osteoarthritis, unspecified site; M54.5 Low back pain; I25.2 Old myocardial infarction; Z95.5 Presence of coronary angioplasty implant and graft; Z87.442 Personal history of urinary calculi; Z85.048 Personal history of other malignant neoplasm of rectum, rectosigmoid junction, and anus; Z87.891 Personal history of nicotine dependence; Z93.3 Colostomy status; Z98.42 Cataract extraction status, left eye; Z98.41 Cataract extraction status, right eye; Z79.02 Long term (current) use of antithrombotics/antiplatelets; Z79.82 Long term (current) use of aspirin; Z79.899 Other long term (current) drug therapy; Z82.49 Family history of ischemic heart disease and other diseases of the circulatory system; Z90.49 Acquired absence of other specified parts of digestive tract
CPT/HCPCS: 36415; 71010; 80053; 80061; 82550; 82553; 82565; 83735; 84484; 85025; 85027; 85610; 85730; 93005; 93454; 93571; 94760; 96360; 96361; 99285

== ENCOUNTER 2017-04-08 12:33 | Inpatient (IN) | payer MEDICARE, OTHER ==
[2017-04-08] MEDS ORDERED: NITROGLYCERIN OINT 1 INCH/GM PACKET TOPICAL STA (12:45)
[2017-04-08] MEDS ORDERED: ASPIRIN 81 MG CHEW PO STA (12:45)
--- NOTE | 2017-04-08 12:48 | ED ---
General Adult HPI - General Chief complaint: Chest Pain Stated complaint: Chest Pain Time Seen by Provider: 04/08/17 12:40 Source: patient, family, RN notes reviewed Mode of arrival: ambulatory Limitations: no limitations - History of Present Illness Initial comments: Patient is a pleasant 81-year-old male presenting to the emergency Department with chest discomfort. Patient has been having some discomfort over the past couple of weeks. Patient states discomfort is currently gone. Discomfort was worse last night. There was some mild discomfort this morning. Discomfort feels dull. There is some associated dyspnea. Patient has had similar problem previously associated with heart problems. Nitroglycerin did help no nausea or diaphoresis. Patient did see Dr. Lindsay's morning and was advised to come to the hospital. - Related Data Home Medications Medication Instructions Recorded Confirmed Multivitamin [Men's Multi-Vitamin] 1 tab PO DAILY 03/08/14 04/08/17 Isosorbide Mononitrate [Isosorbide 30 mg PO QAM 09/06/16 04/08/17 Mononitrate ER] Lisinopril [Zestril] 20 mg PO QAM 09/06/16 04/08/17 Atorvastatin [Lipitor] 80 mg PO HS 04/08/17 04/08/17 Pentoxifylline 400 mg PO TID-W/MEALS 04/08/17 04/08/17 amLODIPine [Norvasc] 10 mg PO DAILY 04/08/17 04/08/17 Previous Rx's Medication Instructions Recorded Carvedilol [Coreg] 3.125 mg PO BID-W/MEALS #60 tab 08/14/16 Aspirin 325 mg PO DAILY #30 tab 10/11/16 Clopidogrel [Plavix] 75 mg PO DAILY #30 tab 10/11/16 Nitroglycerin Sl Tabs [Nitrostat] 0.4 mg SUBLINGUAL Q5M PRN #25 tab 10/11/16 Allergies Allergy/AdvReac Type Severity Reaction Status Date / Time zolpidem tartrate Allergy Severe Rash/Hives Verified 04/08/17 14:17 [From Ambien] lorazepam [From Ativan] Allergy Unknown Verified 04/08/17 14:17 Penicillins Allergy Unknown Verified 04/08/17 14:17 Review of Systems ROS Statement: Those systems with pertinent positive or pertinent negative responses have been documented in the HPI. ROS Other: All systems not noted in ROS Statement are negative. Constitutional: Denies: fever Eyes: Denies: eye pain ENT: Denies: ear pain Respiratory: Reports: dyspnea. 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 neck & back/ concussion from a fall years ago, 2006 pneumonia with bacteremia, diverticular dx. Last Myocardial Infarction Date:: 08/11/16 History of Any Multi-Drug Resistant Organisms: None Reported Past Surgical History: Appendectomy, Bladder Surgery, Bowel Resection, Cholecystectomy, Heart Catheterization With Stent, Orthopedic Surgery Additional Past Surgical History / Comment(s): 09/11/16 PTCA with stent to PDA branch of the RCA. Other surgical hx: 08/11/16 CARDIAC STENT. LEFT/RIGHT CATARACT, COLON RESECTION WITH COLOSTOMY, colonoscopies, bilateral iliac STENTs. R Carotid angioplasty, vertebral stent, right shoulder surg for small cracked bone, cystoscopies, lithotripsy, right ureteral stent, lumbar spurs removed, cervical fusion, feeding tube post cervical sx, laparotomy with extensive lysis of adhesions. Past Anesthesia/Blood Transfusion Reactions: No Reported Reaction Date of Last Stent Placement:: 09/11/16 Past Psychological History: No Psychological Hx Reported Smoking Status: Former smoker Past Alcohol Use History: Rare Past Drug Use History: None Reported - Past Family History Father Additional Family Medical History / Comment(s): AGE 90 HEART Mother Family Medical History: Myocardial Infarction ([place]) Additional Family Medical History / Comment(s): AT AGE 60 MASSIVE [place] General Exam Limitations: no limitations General appearance: alert, in no apparent distress Head exam: Present: atraumatic Eye exam: Present: normal appearance, PERRL ENT exam: Present: normal oropharynx Neck exam: Present: normal inspection Respiratory exam: Present: normal lung sounds bilaterally. Absent: chest wall tenderness Cardiovascular Exam: Present: normal rhythm, bradycardia Expanded Peripheral pulses: 2+: Radial (R), Radial (L), Posterior Tibialis (R), Posterior Tibialis (L) GI/Abdominal exam: Present: soft. Absent: tenderness Extremities exam: Present: normal inspection. Absent: pedal edema, calf tenderness Neurological exam: Present: alert Psychiatric exam: Present: normal affect, normal mood Skin exam: Present: normal color Course Vital Signs 04/08/17 04/08/17 12:35 13:16 Temperature 97.0 F L Pulse Rate 47 L 48 L Respiratory 17 18 Rate Blood Pressure 154/70 163/67 O2 Sat by Pulse 98 98 Oximetry EKG Findings - EKG Comments: EKG Findings:: Sinus bradycardia 48. UT 274. QRS 98. QT 454. QTC 45. Left axis. LVH. Inverted T waves V4 through V6. Medical Decision Making - Medical Decision Making Patient reexamined and updated. Patient states he was told he was going to be admitted by Dr. Lindsay. Case was discussed in detail with Dr. Stark, who will admit his patient with cardiology consult. - Lab Data Result diagrams: 04/08/17 13:12 04/08/17 13:12 Lab Results 04/08/17 04/08/17 04/08/17 Range/Units 13:12 13:12 13:12 WBC 6.1 (3.8-10.6) k/uL RBC 3.91 L (4.30-5.90) m/uL Hgb 12.2 L (13.0-17.5) gm/dL Hct 35.9 L (39.0-53.0) % MCV 91.8 (80.0-100.0) fL MCH 31.3 (25.0-35.0) pg MCHC 34.1 (31.0-37.0) g/dL RDW 14.1 (11.5-15.5) % Plt Count 185 (150-450) k/uL Neutrophils % 55 % Lymphocytes % 32 % Monocytes % 8 % Eosinophils % 2 % Basophils % 1 % Neutrophils # 3.4 (1.3-7.7) k/uL Lymphocytes # 1.9 (1.0-4.8) k/uL Monocytes # 0.5 (0-1.0) k/uL Eosinophils # 0.1 (0-0.7) k/uL Basophils # 0.0 (0-0.2) k/uL PT (9.0-12.0) sec INR (<1.2) APTT (22.0-30.0) sec Sodium 141 (137-145) mmol/L Potassium 4.3 (3.5-5.1) mmol/L Chloride 108 H (98-107) mmol/L Carbon Dioxide 26 (22-30) mmol/L Anion Gap 7 mmol/L BUN 18 (9-20) mg/dL Creatinine 0.93 (0.66-1.25) mg/dL Est GFR (MDRD) Af Amer >60 (>60 ml/min/1.73 sqM) Est GFR (MDRD) Non-Af >60 (>60 ml/min/1.73 sqM) Glucose 85 (74-99) mg/dL Calcium 9.0 (8.4-10.2) mg/dL Magnesium 1.7 (1.6-2.3) mg/dL Total Bilirubin 0.3 (0.2-1.3) mg/dL AST 23 (17-59) U/L ALT 42 (21-72) U/L Alkaline Phosphatase 79 (38-126) U/L Total Creatine Kinase 99 (55-170) U/L CK-MB (CK-2) 1.6 (0.0-2.4) ng/mL CK-MB (CK-2) Rel Index 1.6 Troponin I 0.021 (0.000-0.034) ng/mL Total Protein 6.3 (6.3-8.2) g/dL Albumin 3.7 (3.5-5.0) g/dL 04/08/17 Range/Units 13:12 WBC (3.8-10.6) k/uL RBC (4.30-5.90) m/uL Hgb (13.0-17.5) gm/dL Hct (39.0-53.0) % MCV (80.0-100.0) fL MCH (25.0-35.0) pg MCHC (31.0-37.0) g/dL RDW (11.5-15.5) % Plt Count (150-450) k/uL Neutrophils % % Lymphocytes % % Monocytes % % Eosinophils % % Basophils % % Neutrophils # (1.3-7.7) k/uL Lymphocytes # (1.0-4.8) k/uL Monocytes # (0-1.0) k/uL Eosinophils # (0-0.7) k/uL Basophils # (0-0.2) k/uL PT 11.0 (9.0-12.0) sec INR 1.1 (<1.2) APTT 25.0 (22.0-30.0) sec Sodium (137-145) mmol/L Potassium (3.5-5.1) mmol/L Chloride (98-107) mmol/L Carbon Dioxide (22-30) mmol/L Anion Gap mmol/L BUN (9-20) mg/dL Creatinine (0.66-1.25) mg/dL Est GFR (MDRD) Af Amer (>60 ml/min/1.73 sqM) Est GFR (MDRD) Non-Af (>60 ml/min/1.73 sqM) Glucose (74-99) mg/dL Calcium (8.4-10.2) mg/dL Magnesium (1.6-2.3) mg/dL Total Bilirubin (0.2-1.3) mg/dL AST (17-59) U/L ALT (21-72) U/L Alkaline Phosphatase (38-126) U/L Total Creatine Kinase (55-170) U/L CK-MB (CK-2) (0.0-2.4) ng/mL CK-MB (CK-2) Rel Index Troponin I (0.000-0.034) ng/mL Total Protein (6.3-8.2) g/dL Albumin (3.5-5.0) g/dL - Radiology Data Radiology results: image reviewed (Chest x-ray shows no acute process. Chronic changes.) Disposition Clinical Impression: Unstable angina pectoris Disposition: ADMITTED IP TO THIS HOSP Referrals: Akash Stark MD [Primary Care Provider] - 1-2 days Decision Time: 14:22
[2017-04-08 13:25] LABS: Basophils % (A) 1 %; CHCM 33.9; Eosinophils # (A) 0.1 k/uL (0-0.7); Eosinophils % (A) 2 %; HCT 35.9 % (39.0-53.0); HDW 2.52; HGB 12.2 gm/dL (13.0-17.5); Luc # (Auto) 0.19; Luc % (Auto) 3; Lymphocytes # (A) 1.9 k/uL (1.0-4.8); Lymphocytes % (A) 32 %; MCH 31.3 pg (25.0-35.0); MCHC 34.1 g/dL (31.0-37.0); MCV 91.8 fL (80.0-100.0); Monocytes # (A) 0.5 k/uL (0-1.0); Monocytes % (A) 8 %; Neutrophils # (A) 3.4 k/uL (1.3-7.7); Neutrophils % (A) 55 %; RBC 3.91 m/uL (4.30-5.90); RDW 14.1 % (11.5-15.5); WBC 6.1 k/uL (3.8-10.6)
[2017-04-08 13:35] LABS: ALT 42 U/L (21-72); AST 23 U/L (17-59); Alkaline Phosphatase 79 U/L (38-126); Anion Gap 7 mmol/L; Blood Urea Nitrogen 18 mg/dL (9-20); Carbon Dioxide 26 mmol/L (22-30); Chloride 108 mmol/L (98-107); Glucose 85 mg/dL (74-99); Magnesium 1.7 mg/dL (1.6-2.3); Non-African American GFR(MDRD) >60 (>60 ml/min/1.73 sqM); Potassium 4.3 mmol/L (3.5-5.1); Sodium 141 mmol/L (137-145); Total Bilirubin 0.3 mg/dL (0.2-1.3); Total Protein 6.3 g/dL (6.3-8.2)
--- NOTE | 2017-04-08 13:35 | XR ---
EXAMINATION TYPE: XR chest 2V DATE OF EXAM: 04/08/2017 COMPARISON: Chest x-ray October 04, 2016. HISTORY: Chest pain today. TECHNIQUE: Frontal and lateral views of the chest are obtained. FINDINGS: There is chronic parenchymal change without suspicious focal air space opacity, pleural ef fusion, or pneumothorax seen. The cardiac silhouette size is upper limits of normal with atheroscler otic thoracic aorta. The osseous structures are demineralized. IMPRESSION: Chronic changes without acute pulmonary process. No significant change from prior.
[2017-04-08 13:37] LABS: INR 1.1 (<1.2)
[2017-04-08 14:06] LABS: Creatine Kinase MB 1.6 ng/mL (0.0-2.4); Troponin I 0.021 ng/mL (0.000-0.034)
[2017-04-08] MEDS ORDERED: HEPARIN SODIUM,PORCINE 5,000 UNIT/ML 1 ML VIAL IV ONE (14:20)
[2017-04-08] MEDS ORDERED: NITROGLYCERIN SL TABS 0.4 MG TAB SUBLINGUAL PRN ×3 (14:20→15:51)
[2017-04-08] MEDS ORDERED: HEPARIN SODIUM,PORCINE 5,000 UNIT/ML 1 ML VIAL IV PRN (14:20)
[2017-04-08] MEDS ORDERED: HEPARIN SODIUM,PORCINE/D5W PMX 25,000 UNIT in DEXTROSE/WATER 1 500ML.BAG IV SCH (14:30)
[2017-04-08] MEDS ORDERED: ALPRAZolam 0.25 MG TAB PO PRN (15:51)
[2017-04-08] MEDS ORDERED: ALPRAZolam 0.5 MG TAB PO PRN (15:51)
[2017-04-08] MEDS ORDERED: SODIUM CHLORIDE 0.9% 1,000 ML in EMPTY BAG 1 BAG IV ONE (15:51)
[2017-04-08] MEDS ORDERED: NITROGLYCERIN-D5W PMX 50 MG in DEXTROSE/WATER 1 250ML.BAG IV SCH (16:15)
[2017-04-08] MEDS ORDERED: NITROGLYCERIN OINT 1 INCH/GM PACKET TOPICAL SCH (18:00)
[2017-04-08] MEDS: CARVEDILOL 3.125 MG TAB PO SCH (18:06)
[2017-04-08] MEDS: PENTOXIFYLLINE 400 MG TABLET.ER PO SCH (18:06)
[2017-04-08 20:42] LABS: Creatine Kinase MB 1.4 ng/mL (0.0-2.4); Troponin I 0.022 ng/mL (0.000-0.034)
[2017-04-08] MEDS: ATORVASTATIN 80 MG TAB PO SCH (21:22)
[2017-04-09 00:39] LABS: Creatine Kinase MB 1.2 ng/mL (0.0-2.4); Troponin I 0.02 ng/mL (0.000-0.034)
[2017-04-09] MEDS ORDERED: ASPIRIN 325 MG TAB PO ONE (06:00)
[2017-04-09] MEDS ORDERED: ATORVASTATIN 80 MG TAB PO ONE (06:00)
[2017-04-09] MEDS: ASPIRIN 325 MG TAB PO SCH (06:16)
[2017-04-09] MEDS: CLOPIDOGREL 75 MG TAB PO SCH (06:24)
[2017-04-09] MEDS: amLODIPine 10 MG TAB PO SCH (06:24)
[2017-04-09] MEDS: PENTOXIFYLLINE 400 MG TABLET.ER PO SCH ×3 (06:24→17:07)
[2017-04-09] MEDS: LISINOPRIL 20 MG TAB PO SCH (06:24)
[2017-04-09] MEDS: CARVEDILOL 3.125 MG TAB PO SCH ×2 (06:24→17:07)
[2017-04-09 06:45] LABS: Mean Platelet Volume 8.9
[2017-04-09 07:09] LABS: Cholesterol 132 mg/dL (<200); HDL Cholesterol 28 mg/dL (40-60); Triglycerides 151 mg/dL (<150)
--- NOTE | 2017-04-09 07:52 | HP ---
DATE OF ADMISSION: 04/08/2017 CHIEF COMPLAINT: Chest pain. This is an 81-year-old white male who was referred to the emergency room by his fire assistant, Dr. Lindsay and because of persistent chest pain, patient was experiencing chest pain for the past couple of weeks, but this was getting more persistent and severe for the past 2 days and at night he gets scared of the chest pain because it was radiating to his left arm and also there was some associated shortness of breath. He called Dr. Lindsay's office and he recommended him to go to the emergency room. In the emergency room, he was evaluated. His EKG did not show any acute changes and cardiac enzymes were within normal limits. The patient was relieved somewhat with nitroglycerin. Patient was admitted to the hospital for further evaluation and treatment with a diagnosis of unstable angina. His CBC in the ER showed a WBC of 6.1, hemoglobin 12.2 and platelet count 185. Cardiac enzyme is within normal limits. Troponin was 0.021. CK MB 1.6. Total CK 99. Sodium 141, potassium 4.3, BUN 18, creatinine 0.93. Chest x-ray no acute changes. Patient was admitted to the hospital for further evaluation and treatment. Past medical history reveals that he is known to have coronary artery disease and has had a history of myocardial infarction in the past and also stent placements in the past. He also has hypertensive cardiovascular disease, degenerative arthritis of multiple joints, peripheral vascular disease and has stent placement in his iliac arteries. Also he has a history of rectal cancer and this was treated by surgery and radiation treatment. Patient has hyperlipidemia. His current medications include he is takin. Multivitamin one a day. 2. Isosorbide 30 mg p.o. daily. 3. Lisinopril 20 mg p.o. daily. 4. Lipitor 80 mg p.o. daily. 5. Pentoxifylline 400 mg p.o. t.i.d. 6. Norvasc 10 mg p.o. daily. 7. Coreg 3.125 mg daily. 8. Plavix 75 mg p.o. daily. 9. Nitroglycerin sublingual p.r.n. He is allergic to AMBIEN and PENICILLIN and ATIVAN. He does not smoke. He drinks alcohol occasionally. FAMILY HISTORY: Strongly positive for heart disease and also history of cancer. REVIEW OF SYSTEMS: The patient denies any headache. Appetite has been good. Bowels are regular. He has chest pain as mentioned before and he has some shortness of breath associated with chest pain. He has no abdominal pain. He has no polyuria or dysuria. She has neurological symptoms. Physical examination reveals an 81-year-old white male well nourished and well developed. He is alert and oriented. His chest pain is subsiding. His temperature is 97.0 and pulse 54 per minute and regular. Blood pressure 154/ 70. O2 saturation 98%. Respirations 18 per minute. There is no jaundice. There is no generalized lymphadenopathy. There are no petechiae or bruises. Examination of the ENT: Negative. Neck is supple. There is no jugular venous distention. There is no goiter and there is no carotid bruit. Heart is in sinus rhythm. Lungs are clear to auscultation and percussion. ABDOMEN: Soft and nontender. There is no mass palpable. Examination of the lower extremities reveal no pitting edema. Neurologic examination does not reveal localizing signs. IMPRESSION: 1. Chest pain, unstable angina. 2. Coronary artery disease with past history of myocardial infarction and stent placement. 3. Hypertensive cardiovascular disease. 4. Past history of carcinoma of the rectum, status post surgery and radiation therapy. 5. Degenerative arthritis multiple joints. 6. Peripheral vascular disease. 7. Hyperlipidemia. PLAN: Patient will be admitted to the hospital. Will monitor his heart with telemetry and also will get serial EKGs and cardiac enzymes. Will consult Dr. Lindsay who is planning to do a cardiac catheterization. Prognosis guarded. The diagnosis, prognosis and therapeutic plans were discussed in detail with the patient today. ROSCOE
[2017-04-09] MEDS ORDERED: LIDOCAINE 2% INJ 20 MG/ML (20 ML MDV) ONE (08:26)
[2017-04-09] MEDS ORDERED: VERAPAMIL 2.5 MG/ML 2 ML AMP ONE (08:28)
[2017-04-09] MEDS ORDERED: MIDAZOLAM 2 MG/2 ML VIAL ONE (08:40)
[2017-04-09] MEDS ORDERED: HEPARIN SODIUM 1,000 UN/ML (10ML VL) ONE (08:41)
[2017-04-09] MEDS ORDERED: SODIUM CHLORIDE 0.9% 1,000 ML IV ONE (08:45)
[2017-04-09] MEDS: MIDAZOLAM 2 MG/2 ML VIAL IVP ONE ×2 (08:49→09:12)
[2017-04-09] MEDS ORDERED: LIDOCAINE 2% INJ 20 MG/ML SQ ONE (08:49)
[2017-04-09] MEDS: VERAPAMIL SYRINGE (5 MG/10 ML) INTRAARTER ONE ×2 (08:53→09:32)
[2017-04-09] MEDS ORDERED: ASPIRIN 325 MG TAB PO SCH (09:00)
[2017-04-09] MEDS ORDERED: ISOSORBIDE MONONITRATE ER 30 MG TAB.ER.24H PO SCH (09:00)
[2017-04-09] MEDS ORDERED: BIVALIRUDIN BOLUS 250 MG/50 ML IV ONE (09:07)
[2017-04-09] MEDS ORDERED: BIVALIRUDIN 250 MG in SODIUM CHLORIDE 0.9% 50 ML IV ONE (09:08)
[2017-04-09] MEDS: NITROGLYCERIN 1000MCG/10ML SYRINGE INTRACORON ONE ×2 (09:28→09:29)
[2017-04-09] MEDS ORDERED: CLOPIDOGREL 75 MG TAB ONE (09:33)
[2017-04-09] MEDS ORDERED: CLOPIDOGREL 75 MG TAB PO ONE (09:34)
[2017-04-09] MEDS ORDERED: IOHEXOL 350 MG/ML 125ML BOTTLE INJ ONE (09:35)
[2017-04-09] MEDS ORDERED: RX INFO: IV CONTRAST WAS GIVEN 1 EACH MISC MISCELLANE PRN (09:38)
[2017-04-09] MEDS ORDERED: ATROPINE SULFATE 0.1 MG/ML 10ML SYRINGE IV PRN (09:38)
[2017-04-09] MEDS ORDERED: MAG HYDROX/AL HYDROX/SIMETH 30 ML CUP PO PRN (09:38)
[2017-04-09] MEDS ORDERED: NITROGLYCERIN SL TABS 0.4 MG TAB SUBLINGUAL PRN (09:38)
[2017-04-09] MEDS ORDERED: ZOLPIDEM 5 MG TAB PO PRN (09:38)
[2017-04-09] MEDS ORDERED: SODIUM CHLORIDE 0.9% 1,000 ML IV SCH (09:45)
[2017-04-09] MEDS: MULTIVITAMINS, THERA 1 EACH TAB PO SCH (12:16)
[2017-04-09] MEDS ORDERED: ACETAMINOPHEN TAB 325 MG TAB PO PRN (13:55)
--- NOTE | 2017-04-09 19:37 | PN ---
DATE OF SERVICE: 04/09/17 This is an 81 -year-old white male who is known to have coronary artery disease and has had a stent placement in the past and he was experiencing chest pain radiating to the left arm and he was having this pain for the past one week and this was progressively getting worse and his core blower Dr. Lindsay sent him to the ER and the patient was admitted to the hospital for further evaluation and treatment. The patient was placed back on his previous medications and his heart was being monitored by telemetry and also serial EKGs and cardiac enzymes. He had a cardiac catheterization today by Dr. Lindsay and was found to have restenosis of the stent which was placed in the LAD in the past and Dr. Lindsay put a new stent and the patient tolerated the procedure well. The patient is on antibiotic now. His vital signs were stable. Heart is in sinus rhythm. Lungs are clear. There is no acute cardiorespiratory problems. Prognosis guarded. Diagnosis, prognosis and therapeutic plans were discussed in detail with the patient and also with his today. If his condition remains stable, he will possibly be discharged home tomorrow. ROSCOE
[2017-04-09] MEDS: ATORVASTATIN 80 MG TAB PO SCH (21:48)
[2017-04-09] MEDS ORDERED: ALPRAZolam 0.25 MG TAB PO PRN (22:59)
[2017-04-10 03:53] VITALS: RESP 16
[2017-04-10] MEDS: PENTOXIFYLLINE 400 MG TABLET.ER PO SCH ×2 (06:39→12:58)
[2017-04-10] MEDS: CARVEDILOL 3.125 MG TAB PO SCH (06:39)
[2017-04-10 07:22] LABS: Basophils % (A) 1 %; CH 30.5; CHCM 32.7; Eosinophils # (A) 0.2 k/uL (0-0.7); Eosinophils % (A) 3 %; HCT 40.7 % (39.0-53.0); HDW 2.48; HGB 12.9 gm/dL (13.0-17.5); Luc # (Auto) 0.19; Luc % (Auto) 3; Lymphocytes # (A) 1.5 k/uL (1.0-4.8); Lymphocytes % (A) 25 %; MCH 29.8 pg (25.0-35.0); MCHC 31.8 g/dL (31.0-37.0); MCV 93.6 fL (80.0-100.0); Mean Platelet Volume 8.9; Monocytes # (A) 0.4 k/uL (0-1.0); Monocytes % (A) 7 %; Neutrophils # (A) 3.5 k/uL (1.3-7.7); Neutrophils % (A) 60 %; RBC 4.35 m/uL (4.30-5.90); RDW 14.1 % (11.5-15.5); WBC 5.8 k/uL (3.8-10.6); WBC (Perox) 5.93
[2017-04-10 07:41] LABS: Anion Gap 10 mmol/L; Blood Urea Nitrogen 15 mg/dL (9-20); Calcium 9.2 mg/dL (8.4-10.2); Carbon Dioxide 22 mmol/L (22-30); Chloride 111 mmol/L (98-107); Glucose 92 mg/dL (74-99); Non-African American GFR(MDRD) >60 (>60 ml/min/1.73 sqM); Potassium 4.3 mmol/L (3.5-5.1); Sodium 143 mmol/L (137-145)
--- NOTE | 2017-04-10 07:49 | CC ---
DATE OF SERVICE: 04/09/17 PERFORMING PHYSICIAN: Michele Lindsay M.D., replanting machine crew. PROCEDURE PERFORMED: 1. Selective right and left coronary angiogram. 2. Successful stenting of the first obtuse marginal branch of the left circumflex coronary artery using 2.75 x 16 mm Promus Premiere drug eluting stent with good angiographic results. INDICATIONS: This is a pleasant 81 year old gentleman who is known to have coronary artery disease with prior stenting of the distal RCA, first obtuse marginal branch of the left circumflex as well as left anterior descending artery, was experiencing intermittent episodes of chest discomfort consistent with unstable angina. I saw him in the office yesterday and I admitted the patient to the hospital and decided to pursue with heart catheterization. APPROACH: Right radial artery. COMPLICATIONS: None. LEVEL OF SEDATION: Moderate. SEDATION LENGTH: 45 minutes. PROCEDURE DESCRIPTION: After obtaining informed consent, the patient was brought to the cardiac clinical laboratory director. The right radial artery was cannulated using micropuncture technique. The micropuncture wire passed easily. Then, I placed a 6 Tamazight sheath in the right radial artery. Subsequently I did give the patient 2 mg of Verapamil IA. After that, I did selective right and left coronary angiogram using JR4 and JL3.5 catheters. After that, I decided to intervene on the OM branch of the left circumflex. Please see a separate paragraph for that. SELECTIVE CORONARY ANGIOGRAM: 1. The right coronary artery is a large caliber vessel and it is a dominant vessel. The proximal RCA has mild disease only. The mid RCA is angiographically normal. The RCA distally is stented with moderate in stent restenosis. The RCA bifurcates into PDA and PLV branches, both appear to have mild disease only. 2. The left main is angiographically normal. It bifurcates into the left circumflex and left anterior descending artery. 3. The left circumflex is a large caliber vessel and it is a nondominant vessel. The proximal left circumflex gives rise into large first obtuse marginal branch which is stented with critical in-stent restenosis. The left circumflex continues after that as a small to medium caliber vessel in the AV groove. 4. The left anterior descending coronary artery: The proximal LAD appeared to have mild disease only. The mid LAD is stented and that stent is patent. This is just after the first diag branch of the LAD. The mid to distal LAD appeared to be stented as well and the stent is patent and this is just after the second diag branch of the LAD. The LAD distally appeared to be angiographically normal. PCI of the left circumflex: Anticoagulation was initiated using Angiomax. Subsequently I took JL3.5 guiding catheter and the left main was engaged. Whisper wire was used to wire the left circumflex. I did balloon angioplasty using 2.5 x 12 mm balloon which was inflated under 12 atmospheres for 20 seconds. Subsequently, I did deploy 2.75 x 16 mm Promus Premiere drug eluting stent where the stent was positioned under fluoroscopy guidance and deployed under 10 atmospheres for 20 seconds. The following angiogram showed good angiographic results without perforation and without dissection with good flow in the OM. The procedure was completed without any complications. CONCLUSION: 1. intermediate in-stent restenosis involving the distal right coronary artery. 2. Critical in stent restenosis involving the first obtuse marginal branch of the left circumflex. 3. Patent stent in the mid and mid to distal LAD. 4. Successful stenting of the first obtuse marginal branch of the left circumflex using 2.75 x 16 mm Promus Premier drug eluting stent with good angiographic results. POSTPROCEDURE MANAGEMENT: Maximize medical treatment and dual antiplatelet therapy as well as follow up with the patient. ROSCOE
[2017-04-10 08:50] VITALS: BP 147/82; PULSE 50; TEMP 97.1
[2017-04-10] MEDS: MULTIVITAMINS, THERA 1 EACH TAB PO SCH (08:51)
[2017-04-10] MEDS: amLODIPine 10 MG TAB PO SCH (08:51)
[2017-04-10] MEDS: LISINOPRIL 20 MG TAB PO SCH (08:51)
[2017-04-10] MEDS: ASPIRIN 325 MG TAB PO SCH (08:51)
[2017-04-10] MEDS: CLOPIDOGREL 75 MG TAB PO SCH (08:51)
--- NOTE | 2017-04-10 15:23 | P.PN ---
Subjective Principal diagnosis: Chest pain This is a pleasant 81-year-old gentleman with known history of coronary artery disease with prior stenting of the distal RCA, first obtuse marginal branch of the circumflex as well as left anterior descending artery who was experiencing intermittent chest discomfort and for this reason was recommended to come to the hospital to undergo cardiac catheterization. This was performed yesterday by Dr. Blackmon, patient also underwent successful stenting of the first obtuse marginal branch of the left circumflex. Patient was seen and examined this morning, denies any chest pain or difficulty in breathing. He has been up ambulating without any difficulty in the hallway today. Hemodynamically stable. Objective - Vital Signs Vital signs: Vital Signs Temp 97.1 F L 04/10/17 08:00 Pulse 50 L 04/10/17 08:00 Resp 16 04/10/17 08:00 BP 147/82 04/10/17 08:00 Pulse Ox 94 L 04/10/17 08:00 Intake & Output 04/09/17 04/10/17 04/10/17 18:59 06:59 18:59 Intake Total 1113.7 400 740 Output Total 400 Balance 713.7 400 740 Weight 76.5 kg Intake: IV 273.7 Oral 840 400 740 Output: Urine 400 Other: Voiding Method Toilet # Voids 2 # Bowel Movements 0 - Exam PHYSICAL EXAMINATION: HEENT: Head is atraumatic, normocephalic. Pupils equal, round. Neck is supple. There is no elevated jugular venous pressure. HEART EXAMINATION: Heart S1, S2 normal. No murmur or gallop heard. CHEST EXAMINATION: Lungs are clear to auscultation and precussion. No chest wall tenderness is noted on palpation or with deep breathing. ABDOMEN: Soft, nontender. Bowel sounds are heard. No organomegaly noted. Right radial site clean and dry, good distal pulse. EXTREMITIES: 2+ peripheral pulses with no evidence of peripheral edema and no calf tenderness noted. NEUROLOGIC patient is awake, alert and oriented -3. . - Labs CBC & Chem 7: 04/10/17 06:19 04/10/17 06:19 Labs: Abnormal Lab Results - Last 24 Hours (Table) 04/10/17 04/10/17 Range/Units 06:19 06:19 Hgb 12.9 L (13.0-17.5) gm/dL Chloride 111 H (98-107) mmol/L Assessment and Plan (1) Presence of stent in left circumflex coronary artery Status: Acute (2) CAD (coronary artery disease) Status: Acute (3) History of colon cancer Status: Acute (4) History of smoking Status: Acute (5) Hypertension Status: Acute (6) PAD (peripheral artery disease) Status: Acute (7) PVD (peripheral vascular disease) Status: Acute (8) Presence of stent in LAD coronary artery Status: Acute Plan: From cardiology's perspective, patient may be able to be discharged home today. He will have a follow-up appointment with Dr. Lindsay in [place] a week from . He will be discharged home on Norvasc 10 mg daily, aspirin 81 mg daily, Lipitor 80 mg daily, Coreg 3.125 mg twice a day, Plavix 75 mg daily, Imdur 30 mg daily, lisinopril 20 mg daily, sublingual nitroglycerin as needed for chest pain. Patient has been educated regarding his medication, diet, activity and care of site. DNP note has been reviewed, I agree with a documented findings and plan of care. Patient was seen and examined.
== END 2017-04-10 16:12 | disposition home or self-care (01) | DRG 247 ==
LOC: EC 12:33 → OBSVTOIN 14:20 → 3OBS 14:20 → 6SEL 17:33
PROVIDERS: ADMIT Internal Medicine; ATTEND Internal Medicine
PROC: B2111ZZ Fluoroscopy of Multiple Coronary Arteries using Low Osmolar Contrast (ICD-10-PCS; 2017-04-09)
PROC: 027034Z Dilation of Coronary Artery, One Artery with Drug-eluting Intraluminal Device, Percutaneous Approach (ICD-10-PCS; principal; 2017-04-09 08:35)
PROC: 4A023N7 Measurement of Cardiac Sampling and Pressure, Left Heart, Percutaneous Approach (ICD-10-PCS; 2017-04-09 08:35)
DX: I25.110 Atherosclerotic heart disease of native coronary artery with unstable angina pectoris (principal); I11.9 Hypertensive heart disease without heart failure; R00.1 Bradycardia, unspecified; T82.855A Stenosis of coronary artery stent, initial encounter; E78.00 Pure hypercholesterolemia, unspecified; I25.2 Old myocardial infarction; E78.5 Hyperlipidemia, unspecified; R06.02 Shortness of breath; I73.9 Peripheral vascular disease, unspecified; M19.90 Unspecified osteoarthritis, unspecified site; L40.9 Psoriasis, unspecified; K57.90 Diverticulosis of intestine, part unspecified, without perforation or abscess without bleeding; Z92.3 Personal history of irradiation; Z88.0 Allergy status to penicillin; Z85.048 Personal history of other malignant neoplasm of rectum, rectosigmoid junction, and anus; Z79.899 Other long term (current) drug therapy; Z79.02 Long term (current) use of antithrombotics/antiplatelets; Z87.891 Personal history of nicotine dependence; Z88.8 Allergy status to other drugs, medicaments and biological substances; Z87.442 Personal history of urinary calculi; Z87.81 Personal history of (healed) traumatic fracture; Z92.21 Personal history of antineoplastic chemotherapy; Z91.81 History of falling; Z87.01 Personal history of pneumonia (recurrent); Z87.820 Personal history of traumatic brain injury; Z71.3 Dietary counseling and surveillance; Z90.49 Acquired absence of other specified parts of digestive tract; Z98.42 Cataract extraction status, left eye; Z98.41 Cataract extraction status, right eye; Z82.49 Family history of ischemic heart disease and other diseases of the circulatory system; Z98.1 Arthrodesis status; Z87.448 Personal history of other diseases of urinary system; Z95.820 Peripheral vascular angioplasty status with implants and grafts
CPT/HCPCS: 36415; 71020; 80048; 80053; 80061; 82550; 82553; 83735; 84484; 85025; 85049; 85610; 85730; 93005; 93454; 96365; 96376; 99285

== ENCOUNTER 2017-12-12 09:32 | Observation (INO) | payer MEDICARE, OTHER ==
[2017-12-12] MEDS ORDERED: SODIUM CHLORIDE 0.9% 1,000 ML IV STA ×2 (10:11)
[2017-12-12 10:31] LABS: Basophils % (A) 1 %; Eosinophils # (A) 0.2 k/uL (0-0.7); Eosinophils % (A) 3 %; HCT 36.3 % (39.0-53.0); HGB 12.9 gm/dL (13.0-17.5); Lymphocytes # (A) 1.8 k/uL (1.0-4.8); Lymphocytes % (A) 23 %; MCH 30.8 pg (25.0-35.0); MCHC 35.6 g/dL (31.0-37.0); MCV 86.3 fL (80.0-100.0); Mean Platelet Volume 7.7; Monocytes # (A) 0.6 k/uL (0-1.0); Monocytes % (A) 8 %; Neutrophils # (A) 4.9 k/uL (1.3-7.7); Neutrophils % (A) 64 %; Platelet Count 240 k/uL (150-450); RDW 13.5 % (11.5-15.5); WBC 7.7 k/uL (3.8-10.6)
--- NOTE | 2017-12-12 10:39 | XR ---
EXAMINATION TYPE: XR chest 2V DATE OF EXAM: 12/12/2017 COMPARISON: Chest x-ray April 08, 2017. HISTORY: Shortness of breath and weakness. TECHNIQUE: Frontal and lateral views of the chest are obtained. FINDINGS: There is no focal air space opacity, pleural effusion, or pneumothorax seen. The cardiac silhouette size is stable and upper limits of normal with atherosclerotic change in thoracic aorta. T here is some multilevel spurring in the lower thoracic spine. Coronary stent in heart is seen on late ral view posterior aspect. Cholecystectomy clips are noted. IMPRESSION: No suspicious acute pulmonary process. No significant change from prior study.
[2017-12-12 10:40] LABS: Partial Thromboplastin Time 23.2 sec (22.0-30.0); Prothrombin Time 9.7 sec (9.0-12.0)
[2017-12-12 11:00] LABS: ALT 43 U/L (21-72); AST 34 U/L (17-59); Albumin 3.5 g/dL (3.5-5.0); Alkaline Phosphatase 78 U/L (38-126); Anion Gap 13 mmol/L; Blood Urea Nitrogen 21 mg/dL (9-20); Calcium 9.4 mg/dL (8.4-10.2); Carbon Dioxide 21 mmol/L (22-30); Chloride 107 mmol/L (98-107); Glucose 104 mg/dL (74-99); Potassium 4.3 mmol/L (3.5-5.1); Sodium 141 mmol/L (137-145); Total Bilirubin 0.5 mg/dL (0.2-1.3); Total Protein 6.5 g/dL (6.3-8.2)
[2017-12-12 11:07] LABS: Appearance,Urine Clear (Clear); Bilirubin,Urine Negative (Negative); Blood,Urine Negative (Negative); Color,Urine Yellow; Glucose,Urine (UA) Negative (Negative); Ketones,Urine Negative (Negative); Leukocyte Esterase,Urine Negative (Negative); Nitrite,Urine Negative (Negative); PH, Urine 6.5 (5.0-8.0); Protein,Urine Negative (Negative); Specific Gravity,Urine 1.012 (1.001-1.035); Urobilinogen,Urine <2.0 mg/dL (<2.0)
[2017-12-12 11:18] LABS: Creatine Kinase 292 U/L (55-170)
[2017-12-12 11:30] LABS: Creatine Kinase MB 2.4 ng/mL (0.0-2.4); Troponin I <0.012 ng/mL (0.000-0.034)
--- NOTE | 2017-12-12 12:04 | ED ---
Weakness HPI - General Chief complaint: Weakness Stated complaint: Weakness,Nausea Time Seen by Provider: 12/12/17 10:01 Source: patient Mode of arrival: ambulatory Limitations: no limitations - History of Present Illness Initial comments: 82 years old male with a history of coronary artery disease and about increased weakness plus nausea for about 1 week he said he is also short winded he denies any headaches no neck stiffness no chest pain is short-winded especially with exertion he said he has a history of myocardial infarction he denies any chest pain and no pleuritic chest pain he denies any weakness of upper or lower extremities no frequency urgency dysuria no abdominal pain no symptoms of TIA or CVA - Related Data Home Medications Medication Instructions Recorded Confirmed Carvedilol [Coreg] 3.125 mg PO QAM 07/16/17 12/12/17 Multivitamins, Thera [Multivitamin 1 tab PO DAILY 07/16/17 12/12/17 (formulary)] amLODIPine [Norvasc] 10 mg PO DAILY@1200 07/16/17 12/12/17 Lisinopril [Zestril] 20 mg PO HS 12/12/17 12/12/17 Previous Rx's Medication Instructions Recorded Aspirin 325 mg PO DAILY #30 tab 10/11/16 Nitroglycerin Sl Tabs [Nitrostat] 0.4 mg SUBLINGUAL Q5M PRN #25 tab 10/11/16 Atorvastatin [Lipitor] 80 mg PO HS tab 04/10/17 Clopidogrel [Plavix] 75 mg PO DAILY tab 04/10/17 Isosorbide Mononitrate ER [Imdur] 30 mg PO QAM tab 04/10/17 Allergies Allergy/AdvReac Type Severity Reaction Status Date / Time zolpidem tartrate Allergy Severe Rash/Hives Verified 12/12/17 10:46 [From Ambien] lorazepam [From Ativan] Allergy Unknown Verified 12/12/17 10:46 Penicillins Allergy Unknown Verified 12/12/17 10:46 Review of Systems ROS Statement: Those systems with pertinent positive or pertinent negative responses have been documented in the HPI. ROS Other: All systems not noted in ROS Statement are negative. 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 neck & back/ concussion from a fall years ago, 2006 pneumonia with bacteremia, diverticular dx.hospitalized in november at [facility] Last Myocardial Infarction Date:: 08/11/16 History of Any Multi-Drug Resistant Organisms: None Reported Past Surgical History: Appendectomy, Bladder Surgery, Bowel Resection, Cholecystectomy, Heart Catheterization With Stent, Orthopedic Surgery Additional Past Surgical History / Comment(s): Sep 2016 Cardiac stents x2, PTCA with stent to PDA branch of the RCA. Other surgical hx: 08/11/16 CARDIAC STENT. LEFT/RIGHT CATARACT, COLON RESECTION WITH COLOSTOMY, colonoscopies, bilateral iliac STENTs. R Carotid angioplasty, vertebral stent , right shoulder surg for small cracked bone, cystoscopies, lithotripsy, right ureteral stent, lumbar spurs removed, cervical fusion, feeding tube post cervical sx, laparotomy with extensive lysis of adhesions. Past Anesthesia/Blood Transfusion Reactions: No Reported Reaction Additional Past Anesthesia/Blood Transfusion Reaction / Comment(s): no hx blood transfusions Date of Last Stent Placement:: 09/11/16 Past Psychological History: No Psychological Hx Reported Smoking Status: Former smoker Past Alcohol Use History: None Reported Past Drug Use History: None Reported - Past Family History Father Additional Family Medical History / Comment(s): AGE 90 HEART Mother Family Medical History: Myocardial Infarction ([place]) Additional Family Medical History / Comment(s): AT AGE 60 MASSIVE [place] General Exam - General Exam Comments Initial Comments: General: The patient is awake and alert, in no distress, and does not appear acutely ill. GCS is 15 Skin: Skin is warm and dry and no rashes or lesions are noted. Eye: Pupils are equal, round and reactive to light, extra-ocular movements are intact; there is normal conjunctiva bilaterally. Ears, nose, mouth and throat: There are moist mucous membranes and no oral lesions. Neck: The neck is supple, there is no tenderness or JVD. Cardiovascular: There is a regular rate and rhythm. No murmur, rub or gallop is appreciated. Respiratory: To auscultation bilateral, mildly decreased breath sounds bilaterally at the bases Gastrointestinal: Soft, non-distended, non-tender abdomen without masses or organomegaly noted. There is no rebound or guarding present. Bowel sounds are unremarkable. Back: There is no tenderness to palpation in the midline. There is no obvious deformity. Musculoskeletal: Normal ROM, no tenderness, There is no pedal edema. There is no calf tenderness or swelling. No cords were appreciated. Neurological: CN II-XII intact, Cranial nerves III through XII are intact. There are no obvious motor or sensory deficits. Coordination appears grossly intact. Speech is normal. Psychiatric: Cooperative, appropriate mood & affect, normal judgment. Limitations: no limitations Course Vital Signs 12/12/17 12/12/17 12/12/17 09:48 10:34 11:57 Temperature 97.9 F Pulse Rate 88 62 Pulse Rate [ 58 L Left Sitting] Pulse Rate [ 57 L Left Standing] Pulse Rate [ 53 L Left Supine] Respiratory 18 18 16 Rate Blood Pressure 147/70 173/77 Blood Pressure 165/63 [Right Arm Sitting] Blood Pressure 156/74 [Right Arm Standing] Blood Pressure 187/74 [Right Arm Supine] O2 Sat by Pulse 98 [address] is pending at this point CBC, INR, comp his metabolic panel, troponin, EKG, TSH and urinalysis and chest x-ray are unremarkable orthostatic blood pressure check revealed that he has orthostatic hypotension lying is a systolic blood pressure was 187 standing was 156 within a hydrate him up and admitted to Dr. Stark service EKG Findings - EKG Comments: EKG Findings:: EKG is a sinus bradycardia with a first-degree heart block and ventricular rate is 66 SD interval is 270 QRS duration is 92 QT/QTc is 424/4 and 9 review of this EKG reveals T-wave inversion in lead 1 and now noticed T- wave inversion in V6 no ST elevation noticed no ST depression noticed noticed T- wave inversion in aVL Medical Decision Making - Lab Data Result diagrams: 12/12/17 10:10 12/12/17 10:10 Lab Results 12/12/17 12/12/17 12/12/17 Range/Units 10:10 10:10 10:10 WBC 7.7 (3.8-10.6) k/uL RBC 4.20 L (4.30-5.90) m/uL Hgb 12.9 L (13.0-17.5) gm/dL Hct 36.3 L (39.0-53.0) % MCV 86.3 (80.0-100.0) fL MCH 30.8 (25.0-35.0) pg MCHC 35.6 (31.0-37.0) g/dL RDW 13.5 (11.5-15.5) % Plt Count 240 (150-450) k/uL Neutrophils % 64 % Lymphocytes % 23 % Monocytes % 8 % Eosinophils % 3 % Basophils % 1 % Neutrophils # 4.9 (1.3-7.7) k/uL Lymphocytes # 1.8 (1.0-4.8) k/uL Monocytes # 0.6 (0-1.0) k/uL Eosinophils # 0.2 (0-0.7) k/uL Basophils # 0.0 (0-0.2) k/uL PT (9.0-12.0) sec INR (<1.2) APTT (22.0-30.0) sec Sodium 141 (137-145) mmol/L Potassium 4.3 (3.5-5.1) mmol/L Chloride 107 (98-107) mmol/L Carbon Dioxide 21 L (22-30) mmol/L Anion Gap 13 mmol/L BUN 21 H (9-20) mg/dL Creatinine 0.80 (0.66-1.25) mg/dL Est GFR (CKD-EPI)AfAm >90 (>60 ml/min/1.73 sqM) Est GFR (CKD-EPI)NonAf 84 (>60 ml/min/1.73 sqM) Glucose 104 H (74-99) mg/dL Plasma Lactic Acid Jose (0.7-2.0) mmol/L Calcium 9.4 (8.4-10.2) mg/dL Total Bilirubin 0.5 (0.2-1.3) mg/dL AST 34 (17-59) U/L ALT 43 (21-72) U/L Alkaline Phosphatase 78 (38-126) U/L Total Creatine Kinase 292 H (55-170) U/L CK-MB (CK-2) 2.4 (0.0-2.4) ng/mL CK-MB (CK-2) Rel Index 0.8 Troponin I <0.012 (0.000-0.034) ng/mL Total Protein 6.5 (6.3-8.2) g/dL Albumin 3.5 (3.5-5.0) g/dL TSH 2.700 (0.465-4.680) mIU/L Urine Color Urine Appearance (Clear) Urine pH (5.0-8.0) Ur Specific [place] (1.001-1.035) Urine Protein (Negative) Urine Glucose (UA) (Negative) Urine Ketones (Negative) Urine Blood (Negative) Urine Nitrite (Negative) Urine Bilirubin (Negative) Urine Urobilinogen (<2.0) mg/dL Ur Leukocyte Esterase (Negative) 12/12/17 12/12/17 12/12/17 Range/Units 10:10 10:10 10:45 WBC (3.8-10.6) k/uL RBC (4.30-5.90) m/uL Hgb (13.0-17.5) gm/dL Hct (39.0-53.0) % MCV (80.0-100.0) fL MCH (25.0-35.0) pg MCHC (31.0-37.0) g/dL RDW (11.5-15.5) % Plt Count (150-450) k/uL Neutrophils % % Lymphocytes % % Monocytes % % Eosinophils % % Basophils % % Neutrophils # (1.3-7.7) k/uL Lymphocytes # (1.0-4.8) k/uL Monocytes # (0-1.0) k/uL Eosinophils # (0-0.7) k/uL Basophils # (0-0.2) k/uL PT 9.7 (9.0-12.0) sec INR 1.0 (<1.2) APTT 23.2 (22.0-30.0) sec Sodium (137-145) mmol/L Potassium (3.5-5.1) mmol/L Chloride (98-107) mmol/L Carbon Dioxide (22-30) mmol/L Anion Gap mmol/L BUN (9-20) mg/dL Creatinine (0.66-1.25) mg/dL Est GFR (CKD-EPI)AfAm (>60 ml/min/1.73 sqM) Est GFR (CKD-EPI)NonAf (>60 ml/min/1.73 sqM) Glucose (74-99) mg/dL Plasma Lactic Acid Jose 1.2 (0.7-2.0) mmol/L Calcium (8.4-10.2) mg/dL Total Bilirubin (0.2-1.3) mg/dL AST (17-59) U/L ALT (21-72) U/L Alkaline Phosphatase (38-126) U/L Total Creatine Kinase (55-170) U/L CK-MB (CK-2) (0.0-2.4) ng/mL CK-MB (CK-2) Rel Index Troponin I (0.000-0.034) ng/mL Total Protein (6.3-8.2) g/dL Albumin (3.5-5.0) g/dL TSH (0.465-4.680) mIU/L Urine Color Yellow Urine Appearance Clear (Clear) Urine pH 6.5 (5.0-8.0) Ur Specific [place] 1.012 (1.001-1.035) Urine Protein Negative (Negative) Urine Glucose (UA) Negative (Negative) Urine Ketones Negative (Negative) Urine Blood Negative (Negative) Urine Nitrite Negative (Negative) Urine Bilirubin Negative (Negative) Urine Urobilinogen <2.0 (<2.0) mg/dL Ur Leukocyte Esterase Negative (Negative) Disposition Clinical Impression: Dizziness, Orthostatic hypotension Disposition: ADMITTED IP TO THIS HOSP Condition: Good Referrals: Akash Stark MD [Primary Care Provider] - 1-2 days
[2017-12-12] MEDS ORDERED: NALOXONE 0.4 MG/ML 1 ML VIAL IV PRN (12:06)
[2017-12-12] MEDS ORDERED: NITROGLYCERIN SL TABS 0.4 MG TAB SUBLINGUAL PRN (12:11)
--- NOTE | 2017-12-12 12:53 | CT ---
EXAMINATION TYPE: CT brain wo con DATE OF EXAM: 12/12/2017 HISTORY: Weakness, nausea CT DLP: 1081.0 mGycm. Automated Exposure Control for Dose Reduction was Utilized. TECHNIQUE: CT scan of the head is performed without contrast. COMPARISON: None. FINDINGS: There is no acute intracranial hemorrhage or midline shift identified. There is diffuse v entricular and sulcal prominence consistent with diffuse age-related cerebral atrophy. There is low- attenuation in the periventricular white matter consistent with chronic small vessel ischemic change. Neither lens is well-visualized. There are old fracture deformities medial wall of bilateral orbits axial image 14. Visualized paranasal sinuses are clear. Patchy soft tissue density bilateral externa l auditory canals is felt to reflect cerumen. Vascular calcification of distal internal carotid arter ies bilaterally is present. IMPRESSION: No acute intracranial hemorrhage or midline shift. There is fairly moderate diffuse age -related cerebral atrophy and chronic small vessel ischemic change noted.
[2017-12-12 13:06] VITALS: BMI 52.7
[2017-12-12] MEDS: LISINOPRIL 20 MG TAB PO SCH (20:12)
[2017-12-12] MEDS ORDERED: ATORVASTATIN 80 MG TAB PO SCH (21:00)
[2017-12-12] MEDS: ACETAMINOPHEN TAB 325 MG TAB PO PRN (22:59)
[2017-12-13] MEDS ORDERED: CARVEDILOL 3.125 MG TAB PO SCH (07:30)
[2017-12-13] MEDS: MULTIVITAMINS, THERA 1 EACH TAB PO SCH (07:48)
[2017-12-13] MEDS: ASPIRIN 325 MG TAB PO SCH (07:49)
[2017-12-13] MEDS: CLOPIDOGREL 75 MG TAB PO SCH (07:49)
[2017-12-13] MEDS: ATORVASTATIN 80 MG TAB PO SCH (08:43)
[2017-12-13] MEDS ORDERED: ISOSORBIDE MONONITRATE ER 30 MG TAB.ER.24H PO SCH (09:00)
[2017-12-13] MEDS ORDERED: amLODIPine 10 MG TAB PO SCH ×2 (09:00→12:00)
--- NOTE | 2017-12-13 11:53 | ECHOF ---
Referral Reason:sob MEASUREMENTS -------- HEIGHT: 180.3 cm WEIGHT: 73.0 kg BP: 187/64 IVSd: 1.3 cm (0.6 - 1.1) LVIDd: 4.4 cm (3.9 - 5.3) LVPWd: 1.6 cm (0.6 - 1.1) IVSs: 1.9 cm LVIDs: 1.9 cm LVPWs: 2.1 cm Ao Diam: 3.3 cm (2.0 - 3.7) AV Cusp: 2.2 cm (1.5 - 2.6) LA Diam: 3.8 cm (2.7 - 3.8) MV EXCURSION: 8.677 mm (> 18.000) MV EF SLOPE: 28 mm/s (70 - 150) EPSS: 0.2 cm MV E Yuriy: 0.88 m/s MV DecT: 280 ms MV A Yuriy: 1.15 m/s MV E/A Ratio: 0.76 RAP: 5.00 mmHg RVSP: 16.50 mmHg FINDINGS -------- Sinus rhythm. This was a technically good study. The left ventricular size is normal. There is moderate concentric left ventricular hypertrophy. O verall left ventricular systolic function is normal with, an EF between 55 - 60 %. The right ventricle is normal in size and function. The left atrium is normal in size. The right atrium is normal in size. Aortic valve is trileaflet and is mildly thickened. The mitral valve leaflets are mildly thickened. Mild mitral regurgitation is present. Mild tricuspid regurgitation present. The right ventricular systolic pressure, as measured by Doppl er, is 16.50mmHg. Pulmonic valve appears structurally normal. The aortic root size is normal. Normal inferior vena cava with normal inspiratory collapse consistent with estimated right atrial pre ssure of 5 mmHg. The pericardium is normal. CONCLUSIONS -------- 1. Sinus rhythm. 2. This was a technically good study. 3. The left ventricular size is normal. 4. There is moderate concentric left ventricular hypertrophy. 5. Overall left ventricular systolic function is normal with, an EF between 55 - 60 %. 6. The right ventricle is normal in size and function. 7. The left atrium is normal in size. 8. The right atrium is normal in size. 9. Aortic valve is trileaflet and is mildly thickened. 10. The mitral valve leaflets are mildly thickened. 11. Mild mitral regurgitation is present. 12. Mild tricuspid regurgitation present. 13. The right ventricular systolic pressure, as measured by Doppler, is 16.50mmHg. 14. Pulmonic valve appears structurally normal. 15. The aortic root size is normal. 16. Normal inferior vena cava with normal inspiratory collapse consistent with estimated right atrial pressure of 5 mmHg. 17. The pericardium is normal. PIPE BENDER: Nissa Rankin RDCS
--- NOTE | 2017-12-13 14:36 | P.CRDCN ---
History of Present Illness Consult date: 12/13/17 History of present illness: Mr. Hill is a pleasant 82-year-old male past medical history significant for coronary artery disease with prior stenting of the RCA, circumflex and LAD, hypertension, dyslipidemia and chronic kidney disease. He follows with Dr. Lindsay in the office. We've been asked to see him in consultation secondary to orthostatic hypotension with symptomatic dizziness. He recently in March 2017 underwent heart catheterization which revealed in- stent restenosis of the distal RCA, critical in-stent restenosis of the OM and patent stents in the proximal and mid to distal LAD. At that time he underwent successful stenting of the OM with good angiographic results. He presented to the hospital with complaints of dizziness and palpitations. He had been seen in the office for this back in October where he underwent event monitor which revealed no evidence of atrial fibrillation but did show multiple episodes of sinus bradycardia with rates as low as 42. There was also one episode of sinus pause of 2 seconds. At that time his Coreg was discontinued. He states he has not been taking his Coreg but continues to feel symptoms of palpitations and dizziness especially with movement. Initial EKG on arrival reveals sinus bradycardia heart rate 56 with first-degree AV block. Telemetry tracings have revealed that he has a blocked PAC at times. Orthostatic vital signs supine 162 /60 and standing 182/77. His heart rate remains in the 50s with all movements. Laboratory data reveals hemoglobin 12.9, platelets 240, sodium 141, potassium 4.3, TSH 2.7, cardiac enzymes negative 1. He denies symptoms of chest pain, shortness of breath, nausea, vomiting or diaphoresis. Review of Systems The time of my exam: CONSTITUTIONAL: Denies fever. Denies chills. EYES: Denies blurred vision. Denies vision changes. Denies eye pain. EARS, NOSE, MOUTH & THROAT: Denies headache. Denies sore throat. Denies ear pain. CARDIOVASCULAR: Denies chest pain. Denies shortness of breath. Denies orthopnea. Denies PND. Denies palpitations. RESPIRATORY: Denies cough. GASTROINTESTINAL: Denies abdominal pain. Denies diarrhea. Denies constipation. Denies nausea. Denies vomiting. MUSCULOSKELETAL: Denies myalgias. INTEGUMENTARY: Denies pruitis. Denies rash. NEUROLOGIC: Denies numbness. Denies tingling. Denies weakness. Complains of dizziness with movement. PSYCHIATRIC: Denies anxiety. Denies depression. ENDOCRINE: Denies fatigue. Denies weight change. Denies polydipsia. Denies polyurina. GENITOURINARY: Denies burning, hematuria or urgency with micturation. HEMATOLOGIC: Denies history of anemia. Denies bleeding. 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 neck & back/ concussion from a fall years ago, 2006 pneumonia with bacteremia, diverticular dx.hospitalized in november at [facility] Last Myocardial Infarction Date:: 08/11/16 History of Any Multi-Drug Resistant Organisms: None Reported Past Surgical History: Appendectomy, Bladder Surgery, Bowel Resection, Cholecystectomy, Heart Catheterization With Stent, Orthopedic Surgery Additional Past Surgical History / Comment(s): Sep 2016 Cardiac stents x2, PTCA with stent to PDA branch of the RCA. Other surgical hx: 08/11/16 CARDIAC STENT. LEFT/RIGHT CATARACT, COLON RESECTION WITH COLOSTOMY, colonoscopies, bilateral iliac STENTs. R Carotid angioplasty, vertebral stent , right shoulder surg for small cracked bone, cystoscopies, lithotripsy, right ureteral stent, lumbar spurs removed, cervical fusion, feeding tube post cervical sx, laparotomy with extensive lysis of adhesions. Past Anesthesia/Blood Transfusion Reactions: No Reported Reaction Additional Past Anesthesia/Blood Transfusion Reaction / Comment(s): no hx blood transfusions Date of Last Stent Placement:: 09/11/16 Past Psychological History: No Psychological Hx Reported Additional Psychological History / Comment(s): Pt resides with his spouse in a single story home that has 2 porch steps. He is independent.no home care services. has a bp machine at home. 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 Smoking Status: Former smoker Past Alcohol Use History: None Reported Additional Past Alcohol Use History / Comment(s): STARTED SMOKING AT AGE 18- SMOKED 1 PPD, QUIT about 1970. Past Drug Use History: None Reported - Past Family History Father Additional Family Medical History / Comment(s): AGE 90 HEART Mother Family Medical History: Myocardial Infarction (DE) Additional Family Medical History / Comment(s): AT AGE 60 MASSIVE DE Medications and Allergies Home Medications Medication Instructions Recorded Confirmed Type Aspirin 325 mg PO DAILY #30 tab 10/11/16 12/12/17 Rx Nitroglycerin Sl Tabs [Nitrostat] 0.4 mg SUBLINGUAL Q5M PRN #25 tab 10/11/16 Rx Atorvastatin [Lipitor] 80 mg PO HS tab 04/10/17 12/12/17 Rx Clopidogrel [Plavix] 75 mg PO DAILY tab 04/10/17 12/12/17 Rx Isosorbide Mononitrate ER [Imdur] 30 mg PO QAM tab 04/10/17 12/12/17 Rx Carvedilol [Coreg] 3.125 mg PO QAM 07/16/17 12/12/17 History Multivitamins, Thera [Multivitamin 1 tab PO DAILY 07/16/17 12/12/17 History (formulary)] amLODIPine [Norvasc] 10 mg PO DAILY@1200 07/16/17 12/12/17 History Lisinopril [Zestril] 20 mg PO HS 12/12/17 12/12/17 History Allergies Allergy/AdvReac Type Severity Reaction Status Date / Time zolpidem tartrate Allergy Severe Rash/Hives Verified 12/12/17 10:46 [From Ambien] lorazepam [From Ativan] Allergy Unknown Verified 12/12/17 10:46 Penicillins Allergy Unknown Verified 12/12/17 10:46 Physical Exam Vitals: Vital Signs Temp Pulse Pulse Pulse Resp BP BP 12/13/17 08:57 59 L 70 55 L 170/72 182/77 12/13/17 08:00 59 L 18 12/13/17 07:00 98.6 F 59 L 18 12/12/17 21:00 98.4 F 62 18 12/12/17 20:08 60 18 12/12/17 15:00 97.9 F 54 L 18 12/12/17 14:53 58 L 18 BP BP BP Pulse Ox 12/13/17 08:57 162/60 12/13/17 08:00 12/13/17 07:00 187/64 97 12/12/17 21:00 185/81 97 12/12/17 20:08 136/64 12/12/17 15:00 188/71 96 12/12/17 14:53 Intake and Output 12/12/17 12/13/17 12/13/17 22:59 06:59 14:59 Intake Total 700 Balance 700 Intake: Intake, IV Titration 700 Amount Sodium Chloride 0.9% 1, 700 000 ml @ 100 mls/hr IV . Q10H STA Rx#:[id number] Other: Voiding Method Toilet Toilet # Voids 3 2 GENERAL: This is a 82-year-old occasion male in no apparent distress at the time of my examination. HEENT: Head is atraumatic, normocephalic. Pupils are equal, round. Sclerae anicteric. Conjunctivae are clear. Mucous membranes of the mouth are moist. Neck is supple. There is no jugular venous distention. No carotid bruit is heard. LUNGS: Clear to auscultation no wheezes, rales or rhonchi. No chest wall tenderness is noted on palpation or with deep breathing. HEART: Regular rate and rhythm with systolic ejection murmur, no rubs or gallops. S1 and S2 heard. ABDOMEN: Soft, nontender. Bowel sounds are heard. No organomegaly noted. EXTREMITIES: No evidence of peripheral edema and no calf tenderness noted. VASCULAR: Radial and dorsalis pedis pulses palpated, no evidence of clubbing. NEUROLOGIC: Patient is awake, alert and oriented x3. Results 12/12/17 10:10 12/12/17 10:10 Current Medications Generic Name Dose Route Start Last Admin Trade Name Freq PRN Reason Stop Dose Admin Acetaminophen 650 mg 12/12/17 12:06 12/12/17 22:59 Tylenol Tab PO 650 mg Q6HR PRN Administration Mild Pain or Fever > 100.5 Amlodipine Besylate 10 mg 12/14/17 21:00 Norvasc PO HS SERGO Aspirin 325 mg 12/13/17 09:00 12/13/17 07:49 Aspirin PO 325 mg DAILY SERGO Administration Atorvastatin Calcium 80 mg 12/13/17 09:00 12/13/17 08:43 Lipitor PO 80 mg DAILY SERGO Administration Clopidogrel Bisulfate 75 mg 12/13/17 09:00 12/13/17 07:49 Plavix PO 75 mg DAILY SERGO Administration Lisinopril 20 mg 12/12/17 21:00 12/12/17 20:12 Zestril PO 20 mg HS SERGO Administration Multivitamins 1 each 12/13/17 09:00 12/13/17 07:48 Theragran PO 1 each DAILY SERGO Administration Naloxone HCl 0.2 mg 12/12/17 12:06 Narcan IV Q2M PRN Opioid Reversal Nitroglycerin 0.4 mg 12/12/17 12:11 Nitrostat SUBLINGUAL Q5M PRN Chest Pain Intake and Output 12/12/17 12/13/17 12/13/17 22:59 06:59 14:59 Intake Total 700 Balance 700 Intake: Intake, IV Titration 700 Amount Sodium Chloride 0.9% 1, 700 000 ml @ 100 mls/hr IV . Q10H STA Rx#:[id number] Other: Voiding Method Toilet Toilet # Voids 3 2 12/12/17 10:10 12/12/17 10:10 Assessment and Plan Assessment: ASSESSMENT 1. Dizziness with movement and blood pressure change of approximately 20 points. 2. Symptomatic bradycardia 3. Hypertension 4. History of chronic coronary artery disease 5. Dyslipidemia 6. Peripheral vascular disease PLAN Recommend adjusting the amlodipine to taking at that time. Discontinuation of Imdur. Increase activity and have the patient sitting up in the chair more than bed. Recommend cautious position changes with assistance until he feels steady on his feet. Thank you kindly for this consultation, we'll continue to follow this patient. Nurse Practitioner note has been reviewed, I agree with a documented findings and plan of care. Patient was seen and examined.
[2017-12-13] MEDS: LISINOPRIL 20 MG TAB PO SCH ×2 (20:11→21:07)
[2017-12-14] MEDS: ASPIRIN 325 MG TAB PO SCH (07:55)
[2017-12-14] MEDS: ATORVASTATIN 80 MG TAB PO SCH (07:55)
[2017-12-14] MEDS: MULTIVITAMINS, THERA 1 EACH TAB PO SCH (07:55)
[2017-12-14] MEDS: CLOPIDOGREL 75 MG TAB PO SCH (07:55)
--- NOTE | 2017-12-14 08:15 | P.PN ---
Subjective Progress Note Date: 12/14/17 Principal diagnosis: Dizziness and lightheadedness This is a pleasant 82-year-old male patient with a past medical history significant for coronary artery disease and prior coronary artery stenting as well as hypertension and dyslipidemia was admitted to the hospital with dizziness and lightheadedness and was found to have orthostatic hypotension. He was receiving Imdur as well as Norvasc and the Imdur was stopped. He underwent an echocardiogram and that revealed normal LV function without any significant valvular abnormalities. I'll follow-up with the patient today, he is feeling better. The dizziness and lightheadedness has improved. No chest pain or chest discomfort. And no shortness of breath. He was receiving Imdur at 60 mg by mouth daily and that was stopped. Currently he is on Norvasc at 10 mg by mouth daily and lisinopril at 10 mg by mouth daily as well. Objective - Vital Signs Vital signs: Vital Signs Temp 98.1 F 12/14/17 07:00 Pulse 65 12/14/17 07:00 Resp 18 12/14/17 07:00 BP 178/81 12/14/17 07:00 Pulse Ox 97 12/14/17 07:00 Intake & Output 12/13/17 12/14/17 12/14/17 18:59 06:59 18:59 Intake Total 700 1180 Balance 700 1180 Intake: Intake, IV Titration 700 Amount Sodium Chloride 0.9% 1, 700 000 ml @ 100 mls/hr IV . Q10H STA Rx#:[id number] Oral 1180 Other: Voiding Method Toilet Toilet # Voids 2 - Constitutional General appearance: Present: no acute distress - Respiratory Respiratory: bilateral: CTA - Cardiovascular Rhythm: regular Heart sounds: normal: S1, S2 - Labs CBC & Chem 7: 12/12/17 10:10 12/12/17 10:10 Labs: Microbiology - Last 24 Hours (Table) 12/12/17 10:10 Blood Culture - Preliminary Blood No Growth after 24 hours 12/12/17 10:45 Urine Culture - Final Urine,Voided Assessment and Plan Assessment: Assessment #1 orthostatic hypotension #2 coronary artery disease and prior revascularization #3 bradycardia which seems to be asymptomatic Plan #1 the patient was on Imdur which was stopped #2 continue the current dose of Norvasc and lisinopril #3 I recommended keeping the patient one more day in the hospital to tomorrow morning #4 follow-up with the patient. Thank you for allowing us participate in his care
--- NOTE | 2017-12-14 14:53 | HP ---
HISTORY AND PHYSICAL DATE OF ADMISSION: 12/12/2017. CHIEF COMPLAINT: General weakness and he is complaining of not feeling good, dizziness and shortness of breath on exertion. HISTORY OF PRESENT ILLNESS: This is an 82-year-old white male who was experiencing severe weakness, tiredness, and also having dizziness and nausea and increasing shortness of breath on exertion. This was progressively getting worse and the patient came to my office and he was found to be extremely sick and he was sent to [facility] Emergency Room. The patient in the ER, was checked extensively and his EKG did not show any acute changes and chest x-ray also did not show any acute process and cardiac enzymes are within normal limits. CBC showed a WBC count of 7.7, hemoglobin 12.9, platelet count 240,000. Sodium 141, potassium 4.3, and creatinine 0.8, BUN 21, glucose 104. Cardiac enzymes are within normal limits. Troponin was less than 0.012. In the emergency room, he was found to have orthostatic hypotension and the patient was admitted to the hospital for further evaluation and treatment. PAST MEDICAL HISTORY: Reveals that he has longstanding history of coronary artery disease, has had myocardial infarction in the past and also multiple stent placements in the past. 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 CURRENT MEDICATIONS: Include Coreg 3.125 mg daily, Norvasc 10 mg daily, lisinopril 20 mg daily, and Imdur 30 mg p.o. daily, aspirin 325 mg p.o. daily, and Lipitor 80 mg p.o. daily, nitroglycerin sublingual p.r.n., Plavix 75 mg daily. He also has had multiple vascular procedures for peripheral vascular disease. ALLERGIES: HE IS ALLERGIC TO AMBIEN, PENICILLIN, AND ATIVAN. SOCIAL HISTORY: He does not smoke and he does not drink alcohol. FAMILY HISTORY: Father in old age. He had a heart problem and also has a strong family history of cancer. REVIEW OF SYSTEMS: Patient denies any headache. Appetite has been poor lately. He has no chest pain. He has no cough. He has dizziness and weakness and dyspnea on exertion. He has no abdominal pain. He has no polyuria or dysuria. He has no other neurologic symptoms. PHYSICAL EXAMINATION: Reveals an 82-year-old white male appears extremely weak and tired and he is alert and oriented. There is no jaundice. There is no generalized lymphadenopathy. No petechia or bruises. Pulse is 58 per minute, regular. Blood pressure 147/70 while lying down, and the blood pressure dropped very much when he stood up and also he felt dizzy. Examination of the ENT negative. NECK: Supple. There is no jugular venous distention. There is no goiter and no carotid bruit. Heart is in sinus rhythm. LUNGS: Clear to auscultation and percussion. ABDOMEN: Soft and nontender. There is no mass palpable. Examination of the lower extremities revealed no pitting edema. Neurologic examination does not reveal any localizing signs. IMPRESSION: 1. Severe weakness, tiredness, and dizziness. 2. Feeling of nausea. 3. Dyspnea on exertion. 4. Orthostatic hypotension. 5. Coronary artery disease with past history of myocardial infarction and stent placement. 6. Hypertensive cardiovascular disease. 7. Past history of carcinoma of rectum. 8. Hyperlipidemia. PLAN: Patient will be admitted to the hospital and his heart will be monitored with telemetry. We will get cardiology consultation. Prognosis is guarded. The diagnosis, prognosis and therapeutic plans were discussed in detail with the patient. MMODL / IJN: [id number] /
--- NOTE | 2017-12-14 14:59 | PN ---
PROGRESS NOTE DATE OF SERVICE: 12/13/2017 This is an 82-year-old white male who presented to the emergency room with complaints of general weakness, dyspnea on exertion and also dizziness and nausea for the past 1 week and the patient was evaluated extensively in the ER and his EKG did not show any acute changes and also CT of the brain also showed some age-related changes. There was no acute process and the patient had a history of coronary artery disease and has had a myocardial infarction and stent placement in the past. He also has a history of peripheral vascular disease. The patient was found to have orthostatic hypotension and patient was admitted to the hospital for further evaluation and treatment. The patient has been placed back on his previous home medication. Cardiology saw the patient in consultation and because of the hypotension and bradycardia, the Coreg is being held and the patient is still extremely weak and blood pressure is slightly improving with regards to the orthostatic hypotension. Patient denies any chest pain or headache. His vital signs otherwise stable and cardiology is following the patient and the prognosis is guarded. His cardiac enzymes in the ER was within normal limits. The diagnosis, prognosis and therapeutic plans were discussed in detail with the patient today. MMTRACYL / IJN: [id number] /
--- NOTE | 2017-12-14 15:14 | PN ---
PROGRESS NOTE DATE OF SERVICE: 12/14/2017 This is an 82-year-old white male who was admitted with dizziness, general weakness and nausea and this was progressively getting worse and he was extremely weak and tired. He was evaluated in the ER and was found to have orthostatic hypotension and the patient has a history of coronary artery disease and has had a myocardial infarction in the past and also has had stent placements in the past. The patient was admitted to the hospital for further evaluation and treatment. The patient was seen by [facility] in consultation and the patient was seen by Dr. Lindsay today and the patient. The patient's medications are being adjusted and Coreg is being held and also the dose of Norvasc is being adjusted and the patient started feeling better and blood pressure also improving and vital signs are stable. Dr. Lindsay recommended that he stay in the hospital one more day for being watched. If he is stable, he could be discharged home tomorrow and the patient stated that Dr. Lindsay is going to see him tomorrow morning and possibly discharge him tomorrow. MMODL / IJN: [id number] /
[2017-12-14] MEDS ORDERED: amLODIPine 10 MG TAB PO SCH (21:00)
[2017-12-14] MEDS: LISINOPRIL 20 MG TAB PO SCH (21:45)
[2017-12-14] MEDS: ACETAMINOPHEN TAB 325 MG TAB PO PRN (21:45)
[2017-12-15 00:09] VITALS: RESP 16
[2017-12-15 08:26] VITALS: BP 159/80; PULSE 72; TEMP 98.2
[2017-12-15] MEDS: ASPIRIN 325 MG TAB PO SCH (09:12)
[2017-12-15] MEDS: CLOPIDOGREL 75 MG TAB PO SCH (09:12)
[2017-12-15] MEDS: MULTIVITAMINS, THERA 1 EACH TAB PO SCH (09:12)
[2017-12-15] MEDS: ATORVASTATIN 80 MG TAB PO SCH (09:12)
--- NOTE | 2017-12-15 12:08 | P.PN ---
Subjective Progress Note Date: 12/15/17 Principal diagnosis: Dizziness and lightheadedness This is a pleasant 82-year-old male patient with a past medical history significant for coronary artery disease and prior coronary artery stenting as well as hypertension and dyslipidemia was admitted to the hospital with dizziness and lightheadedness and was found to have orthostatic hypotension. He was receiving Imdur as well as Norvasc and the Imdur was stopped. He underwent an echocardiogram and that revealed normal LV function without any significant valvular abnormalities. I'll follow-up with the patient today, he is feeling better. The dizziness and lightheadedness has improved. No chest pain or chest discomfort. And no shortness of breath. He was receiving Imdur at 60 mg by mouth daily and that was stopped. Currently he is on Norvasc at 10 mg by mouth daily and lisinopril at 10 mg by mouth daily as well. From the cardiovascular standpoint overview, he can be discharged home today. Objective - Vital Signs Vital signs: Vital Signs Temp 98.2 F 12/15/17 07:00 Pulse 72 12/15/17 07:00 Resp 16 12/15/17 07:00 BP 159/80 12/15/17 07:00 Pulse Ox 96 12/15/17 07:00 Intake & Output 12/14/17 12/15/17 12/15/17 18:59 06:59 18:59 Intake Total 360 590 Balance 360 590 Intake: Oral 360 590 Other: Voiding Method Toilet Toilet # Voids 2 2 - Constitutional General appearance: Present: no acute distress - Respiratory Respiratory: bilateral: CTA - Cardiovascular Rhythm: regular Heart sounds: normal: S1, S2 - Labs CBC & Chem 7: 12/12/17 10:10 12/12/17 10:10 Labs: Microbiology - Last 24 Hours (Table) 12/12/17 10:10 Blood Culture - Preliminary Blood No Growth after 48 hours Assessment and Plan Assessment: Assessment #1 orthostatic hypotension #2 coronary artery disease and prior revascularization #3 bradycardia which seems to be asymptomatic Plan #1 the patient was on Imdur which was stopped #2 continue the current dose of Norvasc and lisinopril #3 he can be discharged home. Thank you for allowing us participate in his care
== END 2017-12-15 13:30 | disposition home or self-care (01) ==
LOC: EC 09:32 → 5MS5E 12:06
PROVIDERS: ADMIT Internal Medicine; ATTEND Internal Medicine
DX: I95.1 Orthostatic hypotension (principal); R00.1 Bradycardia, unspecified; I25.10 Atherosclerotic heart disease of native coronary artery without angina pectoris; I73.9 Peripheral vascular disease, unspecified; I13.10 Hypertensive heart and chronic kidney disease without heart failure, with stage 1 through stage 4 chronic kidney disease, or unspecified chronic kidney disease; N18.9 Chronic kidney disease, unspecified; R06.09 Other forms of dyspnea; E78.5 Hyperlipidemia, unspecified; M19.90 Unspecified osteoarthritis, unspecified site; L40.9 Psoriasis, unspecified; R53.83 Other fatigue; Z93.3 Colostomy status; Z95.828 Presence of other vascular implants and grafts; Z95.5 Presence of coronary angioplasty implant and graft; I25.2 Old myocardial infarction; Z79.02 Long term (current) use of antithrombotics/antiplatelets; Z79.82 Long term (current) use of aspirin; Z79.899 Other long term (current) drug therapy; Z88.0 Allergy status to penicillin; Z88.8 Allergy status to other drugs, medicaments and biological substances; Z85.048 Personal history of other malignant neoplasm of rectum, rectosigmoid junction, and anus; Z87.891 Personal history of nicotine dependence; Z92.21 Personal history of antineoplastic chemotherapy; Z87.01 Personal history of pneumonia (recurrent); Z87.442 Personal history of urinary calculi; Z82.49 Family history of ischemic heart disease and other diseases of the circulatory system; Z80.9 Family history of malignant neoplasm, unspecified
CPT/HCPCS: 99285 ×2; 96360 ×2; 96361 ×4; 36415; 93005 ×2; 93306; 80053; 82550; 82553; 83605; 84443; 84484; 85025; 85610; 85730; 81003; 87040; 87086; 71046; 70450; G0378 ×4

== ENCOUNTER 2017-12-24 11:47 | Observation (INO) | payer MEDICARE, OTHER ==
[2017-12-24] MEDS ORDERED: SODIUM CHLORIDE 0.9% 1,000 ML IV STA (16:03)
--- NOTE | 2017-12-24 16:07 | ED ---
General Adult HPI <WinDain - Last Filed: 12/24/17 21:15> - General Source: patient, RN notes reviewed Mode of arrival: wheelchair Limitations: no limitations <EmekaStuart - Last Filed: 12/24/17 21:26> - General Chief complaint: Abdominal Pain Stated complaint: Abd Pain Time Seen by Provider: 12/24/17 15:54 - History of Present Illness Initial comments: This is a pleasant 82-year-old male who comes ER complaining of ongoing stomach problems. Patient is complaining of intermittent and sharp pain to his right upper abdomen which comes and goes. He states it happens a few times a day and can last as long as 20 seconds. He states it is sharp in nature. It is unrelated to activity or movement. Patient also complaining of lightheadedness at times as well as intermittent nausea. Patient states he has a feeling of constant hunger. Patient states he feels hungry at this time. Patient denies any current pain. Patient denying any current nausea or lightheadedness. Patient states she is frustrated because is been going on for 3 weeks. Patient was admitted around Easter time and had some manipulation of his medication profile. Patient was discharged from the hospital at that time but still has symptomology. Patient does have a history of cardiovascular disease as well as colon cancer. Patient has had a colostomy for approximately 20 years. Patient denies any vomiting. He denies any headache. No significant cough. No shortness of breath. No chest pain. No changes in bowel patterns. No changes in urination. (Stuart Hendrickson) - Related Data Home Medications Medication Instructions Recorded Confirmed Multivitamins, Thera [Multivitamin 1 tab PO DAILY 07/16/17 12/24/17 (formulary)] amLODIPine [Norvasc] 10 mg PO DAILY 07/16/17 12/24/17 Lisinopril [Zestril] 20 mg PO HS 12/12/17 12/24/17 Aspirin 325 mg PO HS 12/24/17 12/24/17 Previous Rx's Medication Instructions Recorded Nitroglycerin Sl Tabs [Nitrostat] 0.4 mg SUBLINGUAL Q5M PRN #25 tab 10/11/16 Atorvastatin [Lipitor] 80 mg PO HS tab 04/10/17 Clopidogrel [Plavix] 75 mg PO DAILY tab 04/10/17 Allergies Allergy/AdvReac Type Severity Reaction Status Date / Time zolpidem tartrate Allergy Severe Rash/Hives Verified 12/24/17 16:27 [From Ambien] lorazepam [From Ativan] Allergy Unknown Verified 12/24/17 16:27 Penicillins Allergy Unknown Verified 12/24/17 16:27 Review of Systems ROS Other: All systems not noted in ROS Statement are negative. <Dain Win - Last Filed: 12/24/17 21:15> ROS Other: All systems not noted in ROS Statement are negative. <Stuart Hendrickson - Last Filed: 12/24/17 21:26> ROS Statement: Those systems with pertinent positive or pertinent negative responses have been documented in the HPI. Past Medical History Past Medical History: Coronary Artery Disease (CAD), Cancer, Chest Pain / Angina , Hyperlipidemia, Hypertension, Myocardial Infarction ([place]), Osteoarthritis (OA) , Renal Disease, Skin Disorder, Vascular Disorder Additional Past Medical History / Comment(s): 1998 Colon/rectal cancer-colectomy /colostomy/chemo,radiation, psoriasis, kidney stones, fx. neck & back/ concussion from a fall years ago, 2006 pneumonia with bacteremia, diverticular dx.hospitalized in november at [facility] Last Myocardial Infarction Date:: 08/11/16 History of Any Multi-Drug Resistant Organisms: None Reported Past Surgical History: Appendectomy, Bladder Surgery, Bowel Resection, Cholecystectomy, Heart Catheterization With Stent, Orthopedic Surgery Additional Past Surgical History / Comment(s): Sep 2016 Cardiac stents x2, PTCA with stent to PDA branch of the RCA. Other surgical hx: 08/11/16 CARDIAC STENT. LEFT/RIGHT CATARACT, COLON RESECTION WITH COLOSTOMY, colonoscopies, bilateral iliac STENTs. R Carotid angioplasty, vertebral stent , right shoulder surg for small cracked bone, cystoscopies, lithotripsy, right ureteral stent, lumbar spurs removed, cervical fusion, feeding tube post cervical sx, laparotomy with extensive lysis of adhesions. Past Anesthesia/Blood Transfusion Reactions: No Reported Reaction Additional Past Anesthesia/Blood Transfusion Reaction / Comment(s): no hx blood transfusions Date of Last Stent Placement:: 09/11/16 Past Psychological History: No Psychological Hx Reported Smoking Status: Former smoker Past Alcohol Use History: None Reported Past Drug Use History: None Reported - Past Family History Father Additional Family Medical History / Comment(s): AGE 90 HEART Mother Family Medical History: Myocardial Infarction ([place]) Additional Family Medical History / Comment(s): AT AGE 60 MASSIVE [place] <Stuart Hendrickson - Last Filed: 12/24/17 21:26> General Exam <Dain Win - Last Filed: 12/24/17 21:15> Limitations: no limitations General appearance: alert, in no apparent distress Head exam: Present: atraumatic, normocephalic, normal inspection Eye exam: Present: normal appearance, PERRL, EOMI. Absent: scleral icterus, conjunctival injection, periorbital swelling ENT exam: Present: normal exam, mucous membranes moist Neck exam: Present: normal inspection. Absent: tenderness, meningismus, lymphadenopathy Respiratory exam: Present: normal lung sounds bilaterally. Absent: respiratory distress, wheezes, rales, rhonchi, stridor Cardiovascular Exam: Present: regular rate, normal rhythm, normal heart sounds. Absent: systolic murmur, diastolic murmur, rubs, gallop, clicks GI/Abdominal exam: Present: soft, normal bowel sounds, other (Patient does have a colostomy which is draining brown stool. No evidence of hematochezia or melena). Absent: distended, tenderness, guarding, rebound, rigid Extremities exam: Present: normal inspection, full ROM, normal capillary refill. Absent: tenderness, pedal edema, joint swelling, calf tenderness Back exam: Present: normal inspection Neurological exam: Present: alert, oriented X3, CN II-XII intact Psychiatric exam: Present: normal affect, normal mood Skin exam: Present: warm, dry, intact, normal color. Absent: rash <Stuart Hendrickson - Last Filed: 12/24/17 21:26> - General Exam Comments Initial Comments: Well-developed, well-nourished elderly male in minimal distress (Stuart Hendrickson) Course <Dain Win - Last Filed: 12/24/17 21:15> <Stuart Hendrickson - Last Filed: 12/24/17 21:26> Vital Signs 12/24/17 12/24/17 12/24/17 12:25 19:05 20:19 Temperature 97.0 F L Pulse Rate 67 61 60 Respiratory 16 18 18 Rate Blood Pressure 158/73 192/85 169/76 O2 Sat by Pulse 99 97 95 Oximetry - Reevaluation(s) Reevaluation #1: 12/24/17 21:15 Patient reevaluated by myself, Dr. Win. Patient has been having discomfort right upper abdomen over the past few weeks. Patient has had decreased appetite and some nausea and vomiting. Discomfort has been waxing and waning. Discomfort is mild at this time. Patient does have mild tenderness in the right upper quadrant. Computed tomography scan reviewed. Patient and family updated. Case was discussed in detail with Dr. Stark, who will admit his patient with consult for cardiology, gastroenterology, and urology. (Dain Win) Reevaluation #2: 12/24/17 1830 Patient was reevaluated and is resting comfortably in bed. Patient asking for something to eat. (Stuart Hendrickson) EKG Findings - EKG Comments: EKG Findings:: EKG done at 6:01 PM reveals sinus rhythm with a first-degree AV block, nonspecific ST abnormalities, no significant change when compared to the previous study from 12/12/2017. MN 300 ms, QRS 94, QTC 412 normal axis <Stuart Hendrickson - Last Filed: 12/24/17 21:26> Medical Decision Making - Lab Data Result diagrams: 12/24/17 17:45 12/24/17 17:45 <Dain Win - Last Filed: 12/24/17 21:15> - Lab Data Result diagrams: 12/24/17 17:45 12/24/17 17:45 <Stuart Hendrickson - Last Filed: 12/24/17 21:26> - Medical Decision Making Computed tomography scan did not show any acute evidence towards when the patient's pain. Patient did have hydronephrosis on the right. Plain film x- rays were nondiagnostic as well with regards to chest and abdominal films. EKG was unchanged from previous study. Laboratory investigations were essentially normal. Case was discussed with Dr. Stark I Dr. Win. He did request admission with consultations for cardiology, urology, and gastroenterology. Patient stable (Stuart Hendrickson) - Lab Data Lab Results 12/24/17 12/24/17 12/24/17 Range/Units 17:45 17:45 17:45 WBC 9.9 (3.8-10.6) k/uL RBC 4.87 (4.30-5.90) m/uL Hgb 14.2 (13.0-17.5) gm/dL Hct 42.8 (39.0-53.0) % MCV 87.9 (80.0-100.0) fL MCH 29.2 (25.0-35.0) pg MCHC 33.3 (31.0-37.0) g/dL RDW 13.2 (11.5-15.5) % Plt Count 265 (150-450) k/uL Neutrophils % 68 % Lymphocytes % 24 % Monocytes % 5 % Eosinophils % 1 % Basophils % 1 % Neutrophils # 6.7 (1.3-7.7) k/uL Lymphocytes # 2.3 (1.0-4.8) k/uL Monocytes # 0.5 (0-1.0) k/uL Eosinophils # 0.1 (0-0.7) k/uL Basophils # 0.1 (0-0.2) k/uL PT (9.0-12.0) sec INR (<1.2) APTT (22.0-30.0) sec Sodium 140 (137-145) mmol/L Potassium 4.5 (3.5-5.1) mmol/L Chloride 104 (98-107) mmol/L Carbon Dioxide 23 (22-30) mmol/L Anion Gap 13 mmol/L BUN 20 (9-20) mg/dL Creatinine 0.81 (0.66-1.25) mg/dL Est GFR (CKD-EPI)AfAm >90 (>60 ml/min/1.73 sqM) Est GFR (CKD-EPI)NonAf 83 (>60 ml/min/1.73 sqM) Glucose 96 (74-99) mg/dL Plasma Lactic Acid Jose (0.7-2.0) mmol/L Calcium 9.7 (8.4-10.2) mg/dL Total Bilirubin 0.4 (0.2-1.3) mg/dL AST 33 (17-59) U/L ALT 61 (21-72) U/L Alkaline Phosphatase 88 (38-126) U/L Total Creatine Kinase 54 L (55-170) U/L CK-MB (CK-2) 0.8 (0.0-2.4) ng/mL CK-MB (CK-2) Rel Index 1.5 Troponin I <0.012 (0.000-0.034) ng/mL Total Protein 6.9 (6.3-8.2) g/dL Albumin 3.8 (3.5-5.0) g/dL Amylase 78 (30-110) U/L Lipase 152 (23-300) U/L Urine Color Urine Appearance (Clear) Urine pH (5.0-8.0) Ur Specific [place] (1.001-1.035) Urine Protein (Negative) Urine Glucose (UA) (Negative) Urine Ketones (Negative) Urine Blood (Negative) Urine Nitrite (Negative) Urine Bilirubin (Negative) Urine Urobilinogen (<2.0) mg/dL Ur Leukocyte Esterase (Negative) 12/24/17 12/24/17 12/24/17 Range/Units 17:45 17:45 18:00 WBC (3.8-10.6) k/uL RBC (4.30-5.90) m/uL Hgb (13.0-17.5) gm/dL Hct (39.0-53.0) % MCV (80.0-100.0) fL MCH (25.0-35.0) pg MCHC (31.0-37.0) g/dL RDW (11.5-15.5) % Plt Count (150-450) k/uL Neutrophils % % Lymphocytes % % Monocytes % % Eosinophils % % Basophils % % Neutrophils # (1.3-7.7) k/uL Lymphocytes # (1.0-4.8) k/uL Monocytes # (0-1.0) k/uL Eosinophils # (0-0.7) k/uL Basophils # (0-0.2) k/uL PT 10.0 (9.0-12.0) sec INR 1.0 (<1.2) APTT 23.4 (22.0-30.0) sec Sodium (137-145) mmol/L Potassium (3.5-5.1) mmol/L Chloride (98-107) mmol/L Carbon Dioxide (22-30) mmol/L Anion Gap mmol/L BUN (9-20) mg/dL Creatinine (0.66-1.25) mg/dL Est GFR (CKD-EPI)AfAm (>60 ml/min/1.73 sqM) Est GFR (CKD-EPI)NonAf (>60 ml/min/1.73 sqM) Glucose (74-99) mg/dL Plasma Lactic Acid Jose 1.4 (0.7-2.0) mmol/L Calcium (8.4-10.2) mg/dL Total Bilirubin (0.2-1.3) mg/dL AST (17-59) U/L ALT (21-72) U/L Alkaline Phosphatase (38-126) U/L Total Creatine Kinase (55-170) U/L CK-MB (CK-2) (0.0-2.4) ng/mL CK-MB (CK-2) Rel Index Troponin I (0.000-0.034) ng/mL Total Protein (6.3-8.2) g/dL Albumin (3.5-5.0) g/dL Amylase (30-110) U/L Lipase (23-300) U/L Urine Color Yellow Urine Appearance Clear (Clear) Urine pH 7.0 (5.0-8.0) Ur Specific [place] 1.013 (1.001-1.035) Urine Protein Trace H (Negative) Urine Glucose (UA) Negative (Negative) Urine Ketones Negative (Negative) Urine Blood Negative (Negative) Urine Nitrite Negative (Negative) Urine Bilirubin Negative (Negative) Urine Urobilinogen <2.0 (<2.0) mg/dL Ur Leukocyte Esterase Negative (Negative) Disposition <Dain Win - Last Filed: 12/24/17 21:15> Time of Disposition: 21:25 <Stuart Hendrickson - Last Filed: 12/24/17 21:26> Clinical Impression: Abdominal pain Disposition: ADMITTED IP TO THIS HOSP Condition: Stable Referrals: Akash Stark MD [Primary Care Provider] - 1-2 days
[2017-12-24 18:08] LABS: Basophils # (A) 0.1 k/uL (0-0.2); Basophils % (A) 1 %; Eosinophils # (A) 0.1 k/uL (0-0.7); Eosinophils % (A) 1 %; HCT 42.8 % (39.0-53.0); HGB 14.2 gm/dL (13.0-17.5); Lymphocytes # (A) 2.3 k/uL (1.0-4.8); Lymphocytes % (A) 24 %; MCH 29.2 pg (25.0-35.0); MCHC 33.3 g/dL (31.0-37.0); MCV 87.9 fL (80.0-100.0); Mean Platelet Volume 8.5; Monocytes # (A) 0.5 k/uL (0-1.0); Monocytes % (A) 5 %; Neutrophils # (A) 6.7 k/uL (1.3-7.7); Neutrophils % (A) 68 %; Platelet Count 265 k/uL (150-450); RBC 4.87 m/uL (4.30-5.90); RDW 13.2 % (11.5-15.5); WBC 9.9 k/uL (3.8-10.6)
[2017-12-24 18:16] LABS: Partial Thromboplastin Time 23.4 sec (22.0-30.0)
[2017-12-24 18:21] LABS: ALT 61 U/L (21-72); AST 33 U/L (17-59); Albumin 3.8 g/dL (3.5-5.0); Alkaline Phosphatase 88 U/L (38-126); Amylase 78 U/L (30-110); Anion Gap 13 mmol/L; Blood Urea Nitrogen 20 mg/dL (9-20); Calcium 9.7 mg/dL (8.4-10.2); Carbon Dioxide 23 mmol/L (22-30); Chloride 104 mmol/L (98-107); Glucose 96 mg/dL (74-99); Lipase 152 U/L (23-300); Potassium 4.5 mmol/L (3.5-5.1); Sodium 140 mmol/L (137-145); Total Bilirubin 0.4 mg/dL (0.2-1.3); Total Protein 6.9 g/dL (6.3-8.2)
[2017-12-24 18:22] LABS: Creatine Kinase 54 U/L (55-170)
[2017-12-24 18:35] LABS: Creatine Kinase MB 0.8 ng/mL (0.0-2.4); Troponin I <0.012 ng/mL (0.000-0.034)
--- NOTE | 2017-12-24 18:39 | XR ---
EXAMINATION TYPE: XR chest 2V DATE OF EXAM: 12/24/2017 COMPARISON: 12/12/2017 HISTORY: Weakness. Abdominal pain. TECHNIQUE: Frontal and lateral views of the chest are obtained. FINDINGS: There is no heart failure nor confluent pneumonic infiltrate. Thoracic aorta is atheromato us. There is no pleural effusion. Bony thorax is intact. IMPRESSION: No active cardiopulmonary disease. Atheromatous aorta. No change.
--- NOTE | 2017-12-24 18:40 | XR ---
EXAMINATION TYPE: XR KUB DATE OF EXAM: 12/24/2017 COMPARISON: NONE HISTORY: Abdominal pain TECHNIQUE: 2 views FINDINGS: There is no sign of intestinal obstruction or pneumoperitoneum. Fecal pattern is normal. Th ere are clips from cholecystectomy. Lung bases are clear. There are multiple surgical clips in the lo wer abdomen. There is right ureteral stent noted. IMPRESSION: Nonacute abdomen. No change.
[2017-12-24] MEDS ORDERED: RX INFO: IV CONTRAST WAS GIVEN 1 EACH MISC MISCELLANE PRN (18:46)
[2017-12-24] MEDS ORDERED: METOCLOPRAMIDE 5 MG/ML 2 ML VIAL IVP STA (18:47)
[2017-12-24] MEDS ORDERED: diphenhydrAMINE 50 MG/ML 1 ML VIAL IVP STA (18:47)
[2017-12-24 19:11] LABS: Appearance,Urine Clear (Clear); Bilirubin,Urine Negative (Negative); Blood,Urine Negative (Negative); Color,Urine Yellow; Glucose,Urine (UA) Negative (Negative); Ketones,Urine Negative (Negative); Leukocyte Esterase,Urine Negative (Negative); Nitrite,Urine Negative (Negative); Protein,Urine Trace (Negative); Specific Gravity,Urine 1.013 (1.001-1.035); Urobilinogen,Urine <2.0 mg/dL (<2.0)
--- NOTE | 2017-12-24 20:48 | CT ---
EXAMINATION TYPE: CT abdomen pelvis w con DATE OF EXAM: 12/24/2017 COMPARISON: 04/15/2013 HISTORY: RUQ abd pain, nausea and weakness. CT DLP: 711.5 mGycm Automated exposure control for dose reduction was used. TECHNIQUE: Helical acquisition of images was performed from the lung bases through the pelvis. CONTRAST: Performed without Oral Contrast and with IV Contrast, patient injected with 100ml mL of Isovue M300. FINDINGS: There is patchy subsegmental atelectasis at the lung bases. There is no pleural effusion. There is no pericardial effusion. Liver and spleen appear normal. There is no pancreatic mass. Bile ducts are not dilated. There are cl ips from cholecystectomy. There is severe right-sided hydronephrosis. There is a right ureteral stent. There is no retroperiton eal adenopathy. I see no significant renal atrophy. Left kidney has normal size and contour. Abdomina l aorta is atheromatous. There is a stoma in the left mid abdomen. Bladder distends smoothly. There a re surgical clips in the pelvis. There is no ascites. There is no sign of free air. I see no intestin al wall thickening. There are no dilated loops. There is no sign of a pelvic mass. IMPRESSION: PREVIOUS RECTAL SURGERY. RIGHT URETERAL STENT APPEARS TO BE IN GOOD POSITION BUT THERE IS SIGNIFICANT RIGHT SIDE HYDRONEPHROSIS THAT IS WORSE THAN OLD EXAM. THIS MAY INDICATE STENT DYSFUNCTION. NO SIGNI FICANT RENAL ATROPHY. ATHEROSCLEROTIC VASCULAR DISEASE. THERE IS CLEARING OF LEFT SIDE HYDRONEPHROSIS COMPARED TO OLD EXAM. LEFT-SIDED SCROTAL HYDROCELE NOTED.
[2017-12-24] MEDS ORDERED: ACETAMINOPHEN TAB 325 MG TAB PO PRN (21:26)
[2017-12-24] MEDS ORDERED: NALOXONE 0.4 MG/ML 1 ML VIAL IV PRN (21:26)
[2017-12-24] MEDS ORDERED: ONDANSETRON 4 MG/2 ML VIAL IVP PRN (21:26)
[2017-12-24] MEDS: SODIUM CHLORIDE 0.9% 1,000 ML IV SCH (21:37)
[2017-12-25 07:16] LABS: Basophils % (A) 0 %; Eosinophils # (A) 0.1 k/uL (0-0.7); Eosinophils % (A) 1 %; HCT 39.1 % (39.0-53.0); HGB 13.5 gm/dL (13.0-17.5); Lymphocytes # (A) 2.2 k/uL (1.0-4.8); Lymphocytes % (A) 27 %; MCH 30.4 pg (25.0-35.0); MCHC 34.4 g/dL (31.0-37.0); MCV 88.2 fL (80.0-100.0); Mean Platelet Volume 8.2; Monocytes # (A) 0.5 k/uL (0-1.0); Monocytes % (A) 6 %; Neutrophils # (A) 5.1 k/uL (1.3-7.7); Neutrophils % (A) 63 %; Platelet Count 251 k/uL (150-450); RBC 4.43 m/uL (4.30-5.90); RDW 13.1 % (11.5-15.5); WBC 8.1 k/uL (3.8-10.6)
[2017-12-25 07:33] LABS: ALT 57 U/L (21-72); AST 29 U/L (17-59); Albumin 3.4 g/dL (3.5-5.0); Alkaline Phosphatase 83 U/L (38-126); Anion Gap 11 mmol/L; Blood Urea Nitrogen 20 mg/dL (9-20); Calcium 9.3 mg/dL (8.4-10.2); Carbon Dioxide 26 mmol/L (22-30); Chloride 106 mmol/L (98-107); Glucose 90 mg/dL (74-99); Lipase 156 U/L (23-300); Potassium 4.7 mmol/L (3.5-5.1); Sodium 143 mmol/L (137-145); Total Bilirubin 0.3 mg/dL (0.2-1.3); Total Protein 6.2 g/dL (6.3-8.2)
[2017-12-25] MEDS: amLODIPine 10 MG TAB PO SCH (09:37)
[2017-12-25] MEDS: MULTIVITAMINS, THERA 1 EACH TAB PO SCH (09:37)
[2017-12-25] MEDS: SODIUM CHLORIDE 0.9% 1,000 ML IV SCH (09:38)
--- NOTE | 2017-12-25 11:59 | P.CONS ---
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 Admitted with a 2 week history of right upper quadrant abdominal pain that he describes as "nagging". Does not exacerbate with meals or waking him through the night. He's had a few small pink tinged emesis over the last few weeks. Denies gross hematochezia or melena. No history of peptic ulcer disease. Colonoscopy 2014 diverticulosis coli performed by Dr. Dockery. EGD was several years ago. Denies NSAID usage or alcohol. No fever chills or weight loss. Appetite relatively unchanged. Hemoglobin 13.5. White count 8.1. LFTs within normal limits. Lipase 156. BUN 20. Creatinine 0.9. CT abdomen and pelvis liver and spleen appeared normal. No pancreatic mass. Bile ducts are not dilated. Cholecystectomy clips seen. Severe right-sided hydronephrosis with right ureteral stent possible stent dysfunction. Review of Systems Constitutional: Denies fever, chills, sweats, weight gain, or loss. HEENT: Negative for migraines, blurred vision or loss, earaches, drainage, tinnitus, oral mucosal lesions, dysphagia, or odynophagia. Cardiac: CAD. Hypertension. Hyperlipidemia. Negative for chest pain, arrhythmias, or palpitation. Respiratory: Negative for shortness of breath, hemoptysis, cough, or sputum production. Gastrointestinal: See HPI for pertinent findings. Genitourinary: History of multiple cystoscopies lithotripsy nephrolithiasis ureteral stent Negative for hematuria, urgency, frequency, polyuria, dysuria, or penile discharge. Musculoskeletal: Negative for muscle aches, swelling, arthritis, and arthralgias. Neurologic: Negative for stroke or TIA. Endocrine: Negative for thyroid problems. Skin: Negative for rash or itching. 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 neck & back/ concussion from a fall years ago, 2006 pneumonia with bacteremia, diverticular dx.hospitalized in november at [facility] Last Myocardial Infarction Date:: 08/11/16 History of Any Multi-Drug Resistant Organisms: None Reported Past Surgical History: Appendectomy, Bladder Surgery, Bowel Resection, Cholecystectomy, Heart Catheterization With Stent, Orthopedic Surgery Additional Past Surgical History / Comment(s): Sep 2016 Cardiac stents x2, PTCA with stent to PDA branch of the RCA. Other surgical hx: 08/11/16 CARDIAC STENT. LEFT/RIGHT CATARACT, COLON RESECTION WITH COLOSTOMY, colonoscopies, bilateral iliac STENTs. R Carotid angioplasty, vertebral stent , right shoulder surg for small cracked bone, cystoscopies, lithotripsy, right ureteral stent, lumbar spurs removed, cervical fusion, feeding tube post cervical sx, laparotomy with extensive lysis of adhesions. Past Anesthesia/Blood Transfusion Reactions: No Reported Reaction Additional Past Anesthesia/Blood Transfusion Reaction / Comm: no hx blood transfusions Date of Last Stent Placement:: 09/11/16 Past Psychological History: No Psychological Hx Reported Additional Psychological History / Comment(s): Pt resides with his spouse in a single story home that has 2 porch steps. He is independent.no home care services. has a bp machine at home. 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 Smoking Status: Former smoker Past Alcohol Use History: None Reported Additional Past Alcohol Use History / Comment(s): STARTED SMOKING AT AGE 18- SMOKED 1 PPD, QUIT about 1969. Past Drug Use History: None Reported - Past Family History Father Additional Family Medical History / Comment(s): AGE 90 HEART Mother Family Medical History: Myocardial Infarction ([place]) Additional Family Medical History / Comment(s): AT AGE 60 MASSIVE [place] Medications and Allergies Home Medications Medication Instructions Recorded Confirmed Type Nitroglycerin Sl Tabs [Nitrostat] 0.4 mg SUBLINGUAL Q5M PRN #25 tab 10/11/1607/03 Rx Atorvastatin [Lipitor] 80 mg PO HS tab 04/10/17 12/24/17 Rx Clopidogrel [Plavix] 75 mg PO DAILY tab 04/10/17 12/24/17 Rx Multivitamins, Thera [Multivitamin 1 tab PO DAILY 07/16/17 12/24/17 History (formulary)] amLODIPine [Norvasc] 10 mg PO DAILY 07/16/17 12/24/17 History Lisinopril [Zestril] 20 mg PO HS 12/12/17 12/24/17 History Aspirin 325 mg PO HS 12/24/17 12/24/17 History Allergies Allergy/AdvReac Type Severity Reaction Status Date / Time zolpidem tartrate Allergy Severe Rash/Hives Verified 12/24/17 16:27 [From Ambien] lorazepam [From Ativan] Allergy Unknown Verified 12/24/17 16:27 Penicillins Allergy Unknown Verified 12/24/17 16:27 Physical Exam Vitals: Vital Signs Temp Pulse Pulse Resp BP BP Pulse Ox 12/25/17 06:28 98.0 F 79 16 141/68 98 12/25/17 00:00 18 12/24/17 23:00 98.5 F 67 12 126/65 95 12/24/17 21:35 98.3 F 61 18 141/67 95 12/24/17 20:19 60 18 169/76 95 12/24/17 19:05 61 18 192/85 97 12/24/17 12:25 97.0 F L 67 16 158/73 99 Intake and Output 12/24/17 12/25/17 12/25/17 22:59 06:59 14:59 Other: Voiding Method Toilet Toilet Diaper Diaper Incontinent Incontinent # Voids 2 1 # Bowel Movements 0 General appearance: The patient is alert, oriented, in no acute distress. HET: Head is normocephalic and atraumatic. Pupils are equal and reactive. Oropharynx is clear without lesions. Neck: Supple without lymphadenopathy. Trachea midline. Heart: S1 S2. Regular rate and rhythm. Lungs: No crackles or wheezes are heard. Abdomen: Soft, mild right upper quadrant tenderness, nondistended with bowel sounds. Colostomy with scant amount of brown stool in bag. No peritoneal signs. No palpable organomegaly or masses. Extremities: Normal skin color and turgor. No cyanosis, rash, ulceration, clubbing, or edema. Radial and pedal pulses are 2/4 bilaterally. Neurological: No focal deficits. Strength and sensation are grossly intact. Results CBC & Chem 7: 12/25/17 06:35 12/25/17 06:35 Labs: Abnormal Lab Results - Last 24 Hours (Table) 12/24/17 12/24/17 12/25/17 Range/Units 17:45 18:00 06:35 Total Creatine Kinase 54 L (55-170) U/L Total Protein 6.2 L (6.3-8.2) g/dL Albumin 3.4 L (3.5-5.0) g/dL Urine Protein Trace H (Negative) CT scan - abdomen: report reviewed (Reviewed by Dr. Jimenez) Assessment and Plan (1) Right upper quadrant abdominal pain Narrative/Plan: 82-year-old male with a history of colorectal carcinoma status post colostomy and cholecystectomy presents with 2 week history of right upper quadrant abdominal pain with a few episodes of pale pink emesis possible peptic ulcer disease. Additionally CT imaging reported severe right-sided hydronephrosis. Additionally patient's reported right upper quadrant pain could be referred pain from the right-sided hydronephrosis however underlying upper GI pathology cannot be entirely excluded. Current Visit: Yes Status: Acute Code(s): R10.11 - RIGHT UPPER QUADRANT PAIN SNOMED Code(s): 406938957 (2) Hydronephrosis, right Current Visit: Yes Status: Acute Code(s): N13.30 - UNSPECIFIED HYDRONEPHROSIS SNOMED Code(s): 39560282 (3) History of colon cancer Current Visit: Yes Status: Acute Code(s): Z85.038 - PERSONAL HISTORY OF MALIGNANT NEOPLASM OF LARGE INTESTINE SNOMED Code(s): 863646876 (4) CAD (coronary artery disease) Current Visit: No Status: Chronic Code(s): I25.10 - ATHSCL HEART DISEASE OF [place] CORONARY ARTERY W/O ANG PCTRS SNOMED Code(s): 89462275 Plan: 1. Diet as tolerated today followed by nothing by mouth after midnight. 2. EGD evaluation tomorrow. 3. Protonix 40 mg daily. 4. Urology consultation. The buggy runner has discussed the risks, benefits and alternative therapies for the above-mentioned procedure and for both sedation/analgesia as well as necessary blood product administration, if indicated, as they pertain to this patient. The patient has indicated understanding and acceptance of the risks and procedures discussed. Thank you for this kind referral and the opportunity to participate in the care of your patient. This consultation was discussed with Dr. Jimenez. The impression and plan of care have been directed as dictated.
[2017-12-25] MEDS: PANTOPRAZOLE 40 MG TABLET PO SCH (12:51)
--- NOTE | 2017-12-25 15:27 | P.GSCN ---
History of Present Illness Consult date: 12/25/17 Reason for Consult: Right hydronephrosis History of present illness: The patient is an 82-year-old male admitted through the emergency room yesterday for evaluation of abdominal pain. Patient says he's had intermittent episodes of lightheadedness associated with nausea for several weeks. He was hospitalized here approximately 2 weeks ago and released on but the cause for his problems was never identified. He says he's had intermittent right subcostal cramps for the last 2-3 weeks and this was also present yesterday. He denies any gross hematuria. He says he usually voids every 2-4 hours during the day and occasionally at night. This pattern has not changed recently. In the emergency room and a computed tomography scan of the abdomen and pelvis was obtained and this showed marked right hydroureteronephrosis despite the presence of a right double-J catheter. The degree of hydronephrosis was more pronounced than that noted on a computed tomography scan from 03/2013 and it was unclear whether the worsening in the appearance of the kidney was of new onset. The patient has a history of distal right ureteral stricture strictures related to previous pelvic surgery and radiation therapy for treatment of colorectal cancer. He was noted to have marked right hydroureteronephrosis in 2012. He has been followed by Dr. Biswas and has had a right double-J catheter placed for palliation since 05/2013. The double-J catheter is exchanged on a yearly basis and was last changed on 11/07/2017. The patient says he had no problems at the time of the stent placement or since then. Review of Systems - Constitutional Denies chills, Denies fever - Cardiovascular Reports lightheadedness, Denies shortness of breath - Respiratory Denies cough - Gastrointestinal Reports as per HPI - Genitourinary Reports as per HPI Past Medical History Past Medical History: Coronary Artery Disease (CAD), Cancer, Chest Pain / Angina , Hyperlipidemia, Hypertension, Myocardial Infarction (DC), Osteoarthritis (OA) , Renal Disease, Skin Disorder, Vascular Disorder Additional Past Medical History / Comment(s): 1998 Colon/rectal cancer-colectomy /colostomy/chemo,radiation, psoriasis, kidney stones, fx. neck & back/ concussion from a fall years ago, 2006 pneumonia with bacteremia, diverticular dx.hospitalized in november at [facility] Last Myocardial Infarction Date:: 08/11/16 History of Any Multi-Drug Resistant Organisms: None Reported Past Surgical History: Appendectomy, Bladder Surgery, Bowel Resection, Cholecystectomy, Heart Catheterization With Stent, Orthopedic Surgery Additional Past Surgical History / Comment(s): Sep 2016 Cardiac stents x2, PTCA with stent to PDA branch of the RCA. Other surgical hx: 08/11/16 CARDIAC STENT. LEFT/RIGHT CATARACT, COLON RESECTION WITH COLOSTOMY, colonoscopies, bilateral iliac STENTs. R Carotid angioplasty, vertebral stent , right shoulder surg for small cracked bone, cystoscopies, lithotripsy, right ureteral stent, lumbar spurs removed, cervical fusion, feeding tube post cervical sx, laparotomy with extensive lysis of adhesions. Past Anesthesia/Blood Transfusion Reactions: No Reported Reaction Additional Past Anesthesia/Blood Transfusion Reaction / Comm: no hx blood transfusions Date of Last Stent Placement:: 09/11/16 Past Psychological History: No Psychological Hx Reported Additional Psychological History / Comment(s): Pt resides with his spouse in a single story home that has 2 porch steps. He is independent.no home care services. has a bp machine at home. 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 Smoking Status: Former smoker Past Alcohol Use History: None Reported Additional Past Alcohol Use History / Comment(s): STARTED SMOKING AT AGE 18- SMOKED 1 PPD, QUIT about 1969. Past Drug Use History: None Reported - Past Family History Father Additional Family Medical History / Comment(s): AGE 90 HEART Mother Family Medical History: Myocardial Infarction (DC) Additional Family Medical History / Comment(s): AT AGE 60 MASSIVE DC Medications and Allergies Home Medications Medication Instructions Recorded Confirmed Type Nitroglycerin Sl Tabs [Nitrostat] 0.4 mg SUBLINGUAL Q5M PRN #25 tab 10/11/1607/03 Rx Atorvastatin [Lipitor] 80 mg PO HS tab 04/10/17 12/24/17 Rx Clopidogrel [Plavix] 75 mg PO DAILY tab 04/10/17 12/24/17 Rx Multivitamins, Thera [Multivitamin 1 tab PO DAILY 07/16/17 12/24/17 History (formulary)] amLODIPine [Norvasc] 10 mg PO DAILY 07/16/17 12/24/17 History Lisinopril [Zestril] 20 mg PO HS 12/12/17 12/24/17 History Aspirin 325 mg PO HS 12/24/17 12/24/17 History Allergies Allergy/AdvReac Type Severity Reaction Status Date / Time zolpidem tartrate Allergy Severe Rash/Hives Verified 12/24/17 16:27 [From Ambien] lorazepam [From Ativan] Allergy Unknown Verified 12/24/17 16:27 Penicillins Allergy Unknown Verified 12/24/17 16:27 Surgical - Exam Vital Signs Temp Pulse Resp BP Pulse Ox 97.0 F L 67 16 158/73 99 12/24/17 12:25 12/24/17 12:25 12/24/17 12:25 12/24/17 12:25 12/24/17 12:25 - General well developed, well nourished, no distress - Neck no masses, no lymphadectomy - Respiratory normal respiratory effort - Abdomen Abdomen: soft, non tender, no organomegaly (Functioning colostomy is present in the left abdomen) Hernia: none - Genitourinary normal penis with no external lesions, testicles non-tender Results - Labs 12/25/17 06:35 12/25/17 06:35 Abnormal Lab Results - Last 24 Hours (Table) 12/24/17 12/24/17 12/25/17 Range/Units 17:45 18:00 06:35 Total Creatine Kinase 54 L (55-170) U/L Total Protein 6.2 L (6.3-8.2) g/dL Albumin 3.4 L (3.5-5.0) g/dL Urine Protein Trace H (Negative) Diabetes panel 12/24/17 12/25/17 Range/Units 17:45 06:35 Sodium 140 143 (137-145) mmol/L Potassium 4.5 4.7 (3.5-5.1) mmol/L Chloride 104 106 (98-107) mmol/L Carbon Dioxide 23 26 (22-30) mmol/L BUN 20 20 (9-20) mg/dL Creatinine 0.81 0.90 (0.66-1.25) mg/dL Glucose 96 90 (74-99) mg/dL Calcium 9.7 9.3 (8.4-10.2) mg/dL AST 33 29 (17-59) U/L ALT 61 57 (21-72) U/L Alkaline Phosphatase 88 83 (38-126) U/L Total Protein 6.9 6.2 L (6.3-8.2) g/dL Albumin 3.8 3.4 L (3.5-5.0) g/dL Calcium panel 12/24/17 12/25/17 Range/Units 17:45 06:35 Calcium 9.7 9.3 (8.4-10.2) mg/dL Albumin 3.8 3.4 L (3.5-5.0) g/dL Pituitary panel 12/24/17 12/25/17 Range/Units 17:45 06:35 Sodium 140 143 (137-145) mmol/L Potassium 4.5 4.7 (3.5-5.1) mmol/L Chloride 104 106 (98-107) mmol/L Carbon Dioxide 23 26 (22-30) mmol/L BUN 20 20 (9-20) mg/dL Creatinine 0.81 0.90 (0.66-1.25) mg/dL Glucose 96 90 (74-99) mg/dL Calcium 9.7 9.3 (8.4-10.2) mg/dL Adrenal panel 12/24/17 12/25/17 Range/Units 17:45 06:35 Sodium 140 143 (137-145) mmol/L Potassium 4.5 4.7 (3.5-5.1) mmol/L Chloride 104 106 (98-107) mmol/L Carbon Dioxide 23 26 (22-30) mmol/L BUN 20 20 (9-20) mg/dL Creatinine 0.81 0.90 (0.66-1.25) mg/dL Glucose 96 90 (74-99) mg/dL Calcium 9.7 9.3 (8.4-10.2) mg/dL Total Bilirubin 0.4 0.3 (0.2-1.3) mg/dL AST 33 29 (17-59) U/L ALT 61 57 (21-72) U/L Alkaline Phosphatase 88 83 (38-126) U/L Total Protein 6.9 6.2 L (6.3-8.2) g/dL Albumin 3.8 3.4 L (3.5-5.0) g/dL Assessment and Plan (1) Hydronephrosis, right Narrative/Plan: The patient's right hydroureteronephrosis is not new. He had a computed tomography scan of the abdomen and pelvis performed at [facility] on 2016 that also described "massive" right hydroureteronephrosis. Unfortunately the appearance of the right kidney may not change despite adequate decompression with the double-J catheter. The patient's abdominal pain and lightheadedness does not appear to be directly related to the hydronephrosis or double-J catheter. No further urologic evaluation is necessary at this time. Current Visit: Yes Status: Acute Code(s): N13.30 - UNSPECIFIED HYDRONEPHROSIS SNOMED Code(s): 13116194
--- NOTE | 2017-12-25 16:11 | P.CRDCN ---
History of Present Illness History of present illness: Mr. Hill is a pleasant 82-year-old male past medical history significant for coronary artery disease with prior stenting of the RCA, circumflex and LAD, hypertension, dyslipidemia and chronic kidney disease. He follows with Dr. Lindsay in the office. We've been asked to see him in consultation secondary to orthostatic hypotension with symptomatic dizziness. He recently in March 2017 underwent heart catheterization which revealed in- stent restenosis of the distal RCA, critical in-stent restenosis of the OM and patent stents in the proximal and mid to distal LAD. At that time he underwent successful stenting of the OM with good angiographic results. He presented to the hospital with complaints of abdominal pain, nausea and generalized weakness and fatigue. He was recently admitted into the hospital and seen by us for orthostatic hypotension and dizziness. Medications were adjusted at that time and he was discharged home in stable condition. He is seen today resting comfortably in bed in no acute distress. He denies symptoms of chest pain, shortness of breath, dizziness, palpitations or diaphoresis. He states his dizziness with movement has improved since his prior admission. He has been seen in consultation by GI services and is scheduled to undergo an EGD tomorrow morning. Laboratory data reviewed, hemoglobin 13.5, platelets 251, potassium 4.7, creatinine 0.9, cardiac enzymes negative 3. Blood pressure on admission 158/73 this morning 148/67. Heart rate is been in the 60s to 70s. Current cardiac medications include aspirin 325 mg daily, atorvastatin 80 mg daily, lisinopril 20 mg daily, Plavix 75 mg daily and amlodipine 10 mg daily. Her last admission his Imdur was discontinued. Review of Systems At the time my exam: CONSTITUTIONAL: Denies fever. Denies chills. EYES: Denies blurred vision. Denies vision changes. Denies eye pain. EARS, NOSE, MOUTH & THROAT: Denies headache. Denies sore throat. Denies ear pain. CARDIOVASCULAR: Denies chest pain. Denies shortness of breath. Denies orthopnea. Denies PND. Denies palpitations. RESPIRATORY: Denies cough. GASTROINTESTINAL: Complains of right upper quadrant abdominal pain. Denies diarrhea. Denies constipation. Complains of nausea. Denies vomiting. MUSCULOSKELETAL: Denies myalgias. INTEGUMENTARY: Denies pruitis. Denies rash. NEUROLOGIC: Denies numbness. Denies tingling. Denies weakness. PSYCHIATRIC: Denies anxiety. Denies depression. ENDOCRINE: Denies fatigue. Denies weight change. Denies polydipsia. Denies polyurina. GENITOURINARY: Denies burning, hematuria or urgency with micturation. HEMATOLOGIC: Denies history of anemia. Denies bleeding. Past Medical History Past Medical History: Coronary Artery Disease (CAD), Cancer, Chest Pain / Angina , Hyperlipidemia, Hypertension, Myocardial Infarction (MT), Osteoarthritis (OA) , Renal Disease, Skin Disorder, Vascular Disorder Additional Past Medical History / Comment(s): 1998 Colon/rectal cancer-colectomy /colostomy/chemo,radiation, psoriasis, kidney stones, fx. neck & back/ concussion from a fall years ago, 2006 pneumonia with bacteremia, diverticular dx.hospitalized in november at [facility] Last Myocardial Infarction Date:: 08/11/16 History of Any Multi-Drug Resistant Organisms: None Reported Past Surgical History: Appendectomy, Bladder Surgery, Bowel Resection, Cholecystectomy, Heart Catheterization With Stent, Orthopedic Surgery Additional Past Surgical History / Comment(s): Sep 2016 Cardiac stents x2, PTCA with stent to PDA branch of the RCA. Other surgical hx: 08/11/16 CARDIAC STENT. LEFT/RIGHT CATARACT, COLON RESECTION WITH COLOSTOMY, colonoscopies, bilateral iliac STENTs. R Carotid angioplasty, vertebral stent , right shoulder surg for small cracked bone, cystoscopies, lithotripsy, right ureteral stent, lumbar spurs removed, cervical fusion, feeding tube post cervical sx, laparotomy with extensive lysis of adhesions. Past Anesthesia/Blood Transfusion Reactions: No Reported Reaction Additional Past Anesthesia/Blood Transfusion Reaction / Comment(s): no hx blood transfusions Date of Last Stent Placement:: 09/11/16 Past Psychological History: No Psychological Hx Reported Additional Psychological History / Comment(s): Pt resides with his spouse in a single story home that has 2 porch steps. He is independent.no home care services. has a bp machine at home. 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 Smoking Status: Former smoker Past Alcohol Use History: None Reported Additional Past Alcohol Use History / Comment(s): STARTED SMOKING AT AGE 18- SMOKED 1 PPD, QUIT about 1970. Past Drug Use History: None Reported - Past Family History Father Additional Family Medical History / Comment(s): AGE 90 HEART Mother Family Medical History: Myocardial Infarction (MT) Additional Family Medical History / Comment(s): AT AGE 60 MASSIVE MT Medications and Allergies Home Medications Medication Instructions Recorded Confirmed Type Nitroglycerin Sl Tabs [Nitrostat] 0.4 mg SUBLINGUAL Q5M PRN #25 tab 10/11/1607/03 Rx Atorvastatin [Lipitor] 80 mg PO HS tab 04/10/17 12/24/17 Rx Clopidogrel [Plavix] 75 mg PO DAILY tab 04/10/17 12/24/17 Rx Multivitamins, Thera [Multivitamin 1 tab PO DAILY 07/16/17 12/24/17 History (formulary)] amLODIPine [Norvasc] 10 mg PO DAILY 07/16/17 12/24/17 History Lisinopril [Zestril] 20 mg PO HS 12/12/17 12/24/17 History Aspirin 325 mg PO HS 12/24/17 12/24/17 History Allergies Allergy/AdvReac Type Severity Reaction Status Date / Time zolpidem tartrate Allergy Severe Rash/Hives Verified 12/24/17 16:27 [From Ambien] lorazepam [From Ativan] Allergy Unknown Verified 12/24/17 16:27 Penicillins Allergy Unknown Verified 12/24/17 16:27 Physical Exam Vitals: Vital Signs Temp Pulse Pulse Resp BP BP Pulse Ox 12/25/17 15:00 97.9 F 71 16 148/67 94 L 12/25/17 06:28 98.0 F 79 16 141/68 98 12/25/17 00:00 18 12/24/17 23:00 98.5 F 67 12 126/65 95 12/24/17 21:35 98.3 F 61 18 141/67 95 12/24/17 20:19 60 18 169/76 95 12/24/17 19:05 61 18 192/85 97 Intake and Output 12/25/17 12/25/17 12/25/17 06:59 14:59 22:59 Other: Voiding Method Toilet Toilet Toilet Diaper Diaper Diaper Incontinent Incontinent Incontinent # Voids 2 1 # Bowel Movements 0 GENERAL: This is a 82-year-old male in no apparent distress at the time of my examination. HEENT: Head is atraumatic, normocephalic. Pupils are equal, round. Sclerae anicteric. Conjunctivae are clear. Mucous membranes of the mouth are moist. Neck is supple. There is no jugular venous distention. No carotid bruit is heard. LUNGS: Clear to auscultation no wheezes, rales or rhonchi. No chest wall tenderness is noted on palpation or with deep breathing. HEART: Regular rate and rhythm without murmurs, rubs or gallops. S1 and S2 heard. ABDOMEN: Soft, nontender. Bowel sounds are heard. No organomegaly noted. EXTREMITIES: No evidence of peripheral edema and no calf tenderness noted. VASCULAR: Radial and dorsalis pedis pulses palpated, no evidence of clubbing. NEUROLOGIC: Patient is awake, alert and oriented x3. Results 12/25/17 06:35 12/25/17 06:35 Cardiac Enzymes 12/24/17 12/24/17 12/25/17 Range/Units 17:45 17:45 00:01 AST 33 (17-59) U/L CK-MB (CK-2) 0.8 (0.0-2.4) ng/mL Troponin I <0.012 <0.012 (0.000-0.034) ng/mL 12/25/17 12/25/17 Range/Units 06:35 06:35 AST 29 (17-59) U/L CK-MB (CK-2) (0.0-2.4) ng/mL Troponin I <0.012 (0.000-0.034) ng/mL Coagulation 12/24/17 Range/Units 17:45 PT 10.0 (9.0-12.0) sec APTT 23.4 (22.0-30.0) sec CBC 12/24/17 12/25/17 Range/Units 17:45 06:35 WBC 9.9 8.1 (3.8-10.6) k/uL RBC 4.87 4.43 (4.30-5.90) m/uL Hgb 14.2 13.5 (13.0-17.5) gm/dL Hct 42.8 39.1 (39.0-53.0) % Plt Count 265 251 (150-450) k/uL Comprehensive Metabolic Panel 12/24/17 12/25/17 Range/Units 17:45 06:35 Sodium 140 143 (137-145) mmol/L Potassium 4.5 4.7 (3.5-5.1) mmol/L Chloride 104 106 (98-107) mmol/L Carbon Dioxide 23 26 (22-30) mmol/L BUN 20 20 (9-20) mg/dL Creatinine 0.81 0.90 (0.66-1.25) mg/dL Glucose 96 90 (74-99) mg/dL Calcium 9.7 9.3 (8.4-10.2) mg/dL AST 33 29 (17-59) U/L ALT 61 57 (21-72) U/L Alkaline Phosphatase 88 83 (38-126) U/L Total Protein 6.9 6.2 L (6.3-8.2) g/dL Albumin 3.8 3.4 L (3.5-5.0) g/dL Current Medications Generic Name Dose Route Start Last Admin Trade Name Freq PRN Reason Stop Dose Admin Acetaminophen 650 mg 12/24/17 21:26 Tylenol Tab PO Q6HR PRN Mild Pain or Fever > 100.5 Amlodipine Besylate 10 mg 12/25/17 09:00 12/25/17 09:37 Norvasc PO 10 mg DAILY SERGO Administration Atorvastatin Calcium 80 mg 12/25/17 21:00 Lipitor PO HS SERGO Sodium Chloride 1,000 mls @ 75 mls/hr 12/24/17 21:30 12/25/17 09:38 Saline 0.9% IV 75 mls/hr .[id number] SERGO Administration Lisinopril 20 mg 12/25/17 21:00 Zestril PO HS SERGO Miscellaneous Information 1 each 12/24/17 18:46 12/24/17 20:18 Rx Info: Iv Contrast Was Given MISCELLANE 12/26/17 18:46 1 each DAILY PRN Administration Per Protocol Multivitamins 1 each 12/25/17 12:00 12/25/17 09:37 Theragran PO 1 each 1200 SERGO Administration Naloxone HCl 0.2 mg 12/24/17 21:26 Narcan IV Q2M PRN Opioid Reversal Ondansetron HCl 4 mg 12/24/17 21:26 Zofran IVP Q8HR PRN Nausea And Vomiting Pantoprazole Sodium 40 mg 12/25/17 12:00 12/25/17 12:51 Protonix PO 40 mg [id number] SERGO Administration Intake and Output 12/25/17 12/25/17 12/25/17 06:59 14:59 22:59 Other: Voiding Method Toilet Toilet Toilet Diaper Diaper Diaper Incontinent Incontinent Incontinent # Voids 2 1 # Bowel Movements 0 12/25/17 06:35 12/25/17 06:35 Assessment and Plan Assessment: ASSESSMENT 1. Abdominal pain, scheduled for EGD tomorrow with GI service 2. History of coronary artery disease, continue with aspirin and plavix 3. Hypertension 4. Dyslipidemia 5. Peripheral vascular disease PLAN Proceed with medical management. No cardiac work-up needed at this time. May consider increasing lisinopril if blood pressure is elevated. Continue atorvastatin, aspirin, amlodipine and plavix as ordered. Thank you kindly for this consultation and please call with further questions or concerns. Nurse Practitioner note has been reviewed, I agree with a documented findings and plan of care. Patient was seen and examined.
[2017-12-25] MEDS: LISINOPRIL 20 MG TAB PO SCH (20:48)
[2017-12-25] MEDS: ATORVASTATIN 80 MG TAB PO SCH (20:48)
[2017-12-25 23:51] VITALS: RESP 18
[2017-12-26] MEDS ORDERED: LIDOCAINE 1% INJ 10MG/ML (20 ML MDV) ONE (15:03)
[2017-12-26] MEDS ORDERED: PROPOFOL 10 MG/ML 20 ML VIAL IV ONE (15:03)
[2017-12-26] MEDS ORDERED: IV FLUID CONTINUATION 1,000 ML IV ONE (15:04)
--- NOTE | 2017-12-26 15:32 | P.PCN ---
Date of Procedure: 12/26/17 Procedure(s) Performed: Procedure: Esophagogastroduodenoscopy. Preoperative diagnosis: Abdominal pain and chest pain rule out peptic ulcer disease. Postoperative diagnosis: 1. Small sliding hiatal hernia with no obvious esophagitis or complicated reflux mild antral gastritis and minimal duodenitis, but no ulcers, gastric outlet obstruction or bleeding. Preparation and sedation: Was provided by anesthesia. 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 Admitted with a 2 week history of right upper quadrant abdominal pain that he describes as "nagging". Does not exacerbate with meals or waking him up at night. He reported few small pink tinged emesis over the last few weeks. Denies gross hematochezia or melena. No history of peptic ulcer disease. Colonoscopy 2014 diverticulosis coli performed by Dr. Dockery. EGD was several years ago. Denies NSAID usage or alcohol. No fever chills or weight loss. Appetite relatively unchanged. Hemoglobin 13.5. White count 8.1. LFTs within normal limits. Lipase 156. BUN 20. Creatinine 0.9. CT abdomen and pelvis liver and spleen appeared normal. No pancreatic mass. Bile ducts are not dilated. Cholecystectomy clips seen. Severe right-sided hydronephrosis with right ureteral stent possible stent dysfunction. The details are summarized in the history and physical and dictated consultations and progress notes. This evaluation is to assess for peptic ulcer disease. Procedure: With the patient on his left lateral decubitus position and after informed consent and adequate sedation, I passed the Olympus-GIF 160 video upper endoscope through the cricopharyngeus down the esophagus. There was a small sliding hiatal hernia but the esophagus did not show any obvious esophagitis or complicated reflux disease. The endoscope was then passed into the stomach which was insufflated with air and inspected in detail including the retroflex view in the cardia. There was some mottling and erythema consistent with mild antral gastritis but no ulcers or erosions. Pyloric channel did not show any ulcers. Duodenal bulb showed minimal erythema but no ulcers, erosions, bleeding or gastric outlet obstruction. No biopsies were indicated then the endoscope was withdrawn. The patient tolerated the procedure well. Plan: The patient was reassured. Will allow diet and continue to monitor symptoms closely. Further plans based on his course.
[2017-12-26] MEDS ORDERED: LACTATED RINGERS 1,000 ML IV SCH (16:14)
[2017-12-26] MEDS: MULTIVITAMINS, THERA 1 EACH TAB PO SCH (16:53)
[2017-12-26] MEDS: PANTOPRAZOLE 40 MG TABLET PO SCH (16:53)
[2017-12-26] MEDS: amLODIPine 10 MG TAB PO SCH (16:53)
[2017-12-26] MEDS: SODIUM CHLORIDE 0.9% 1,000 ML IV SCH ×2 (17:34)
[2017-12-26] MEDS: LISINOPRIL 20 MG TAB PO SCH (21:00)
[2017-12-26] MEDS: ATORVASTATIN 80 MG TAB PO SCH (21:00)
[2017-12-27] MEDS: SODIUM CHLORIDE 0.9% 1,000 ML IV SCH (02:08)
[2017-12-27 06:49] VITALS: BP 132/57; TEMP 98.2
[2017-12-27] MEDS: PANTOPRAZOLE 40 MG TABLET PO SCH (08:19)
[2017-12-27] MEDS: amLODIPine 10 MG TAB PO SCH (08:19)
[2017-12-27] MEDS: MULTIVITAMINS, THERA 1 EACH TAB PO SCH (08:19)
[2017-12-27 08:20] VITALS: PULSE 63
--- NOTE | 2017-12-29 14:24 | HP ---
HISTORY AND PHYSICAL DATE OF ADMISSION: 12/24/2017 CHIEF COMPLAINT: Upper abdominal pain. HISTORY OF PRESENT ILLNESS: This is an 82-year-old white male who was complaining of upper abdominal pain for the past couple of weeks and the patient also had nauseated feeling, but patient was saying that he always feels hungry and the pain comes and goes and it is very sharp pain and the patient was seen in my office and the patient was found to be extremely sick at that time, because of the pain and he was referred to [facility] Emergency Room. He was evaluated in the emergency room and he had a CT scan of the abdomen which did not show any acute problem except that the patient had a right hydronephrosis and with the presence of a stent in the ureter and the patient has history of nephrolithiasis and the patient also had his CBC done, which showed a WBC count of 9.9, hemoglobin 14.2, platelet count 265,000. Sodium 140, potassium 4.5, BUN 20, creatinine 0.81, and glucose 96. Troponin less than 0.012, and serum amylase and lipase are within normal limits. The patient was admitted to the hospital for further evaluation and treatment. PAST MEDICAL HISTORY: Reveals that he has multiple chronic illness. He has history of coronary artery disease and ischemic cardiomyopathy and he has had multiple stent placements in the past. He also had a peripheral vascular disease with history of intermittent claudication and he also has had a stent placed there. 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 He has a history of nephrolithiasis and has been seeing Dr. Biswas and he has had a stent in the ureter in the past. He has hyperlipidemia. CURRENT MEDICATIONS: Include nitroglycerin sublingual p.r.n. and Lipitor 80 mg p.o. daily, Plavix 75 mg daily, Norvasc 10 mg daily, lisinopril at 20 mg daily and aspirin 325 mg p.o. daily. ALLERGIES: HE IS ALLERGIC TO ATIVAN, AMBIEN. ALSO QUESTIONABLE ALLERGY TO PENICILLIN. SOCIAL HISTORY: He does not smoke and he does he drinks alcohol occasionally. REVIEW OF SYSTEMS: Patient denies any headache. Appetite has been good. He feels hungry all the time, but he is always feeling weak and nausea and right upper abdominal pain. He denies any chest pain now. He has no polyuria or dysuria. He has no neurological symptoms. PHYSICAL EXAMINATION: Reveals he is an 82-year-old white male, well nourished and well developed, he appears to be weak and there is no jaundice. There is no generalized lymphadenopathy. No petechia or bruises. Temperature 97, and pulse is 68 per minute, regular. Blood pressure 158/72, respirations 16, O2 saturation 99 and examination of the ENT negative. NECK: Supple. There is no jugular venous distention. There is no goiter and there is no carotid bruit. Heart is in sinus rhythm. LUNGS: Clear to auscultation and percussion. ABDOMEN: Soft and nontender. There is no mass palpable. Examination of the lower extremities revealed no pitting edema. Neurologic examination does not reveal any localizing signs. IMPRESSION: 1. Upper abdominal pain, more prominent in the right upper quadrant. 2. Rule out peptic ulcer disease. 3. Right hydronephrosis and status post stent placement in the ureter and history of nephrolithiasis. 4. Coronary artery disease with past history of multiple stent placement. 5. Hyperlipidemia. 6. Peripheral vascular disease. 7. The patient has a history of carcinoma of the rectum treated by surgical resection and radiation treatment. PLAN: Patient will be admitted to the hospital. Will have gastroenterology and nephrology consultation. Because he has a history of severe coronary artery disease, we will also get cardiology consultation. He will be placed back on his previous home medication. Prognosis is guarded. The diagnosis, prognosis and therapeutic plans were discussed in detail with the patient and also with his family. MMODL / IJN: [id number] /
--- NOTE | 2017-12-29 14:24 | PN ---
PROGRESS NOTE DATE OF SERVICE: 12/25/2017. HISTORY OF PRESENT ILLNESS: This is an 82-year-old white male who was admitted with complaints of severe upper abdominal pain which comes and goes and also was having general weakness and obvious feeling hungry and the patient was evaluated in the ER and his CT of the abdomen showed right hydronephrosis. The patient has a history of right hydronephrosis and has had a stent placed in the ureter in the past. The patient also blood chemistry also was normal with a normal amylase and normal lipase and also cardiac enzymes were within normal limits. The patient was admitted to the hospital for further evaluation and treatment. The patient has been started on IV fluids and the patient cardiology consultation has been requested and apparently he was seen by slasher tender and they feel that the cardiac dudley he is stable. The patient because of hydronephrosis and possible cause for the pain, his diet and a urologic consultation was obtained and he was seen by Dr. Randle. He reviewed his 3 previous x-rays and he did not see any change in the hydronephrosis and change in the size of the hydronephrosis and he recommended any further a urological procedure. The patient's going to be evaluated by the chiropractic care and they are going to schedule him for an upper endoscopy. Otherwise patient's vital signs are stable. He started feeling better now. The heart is in sinus rhythm. There is no acute cardio or respiratory problems. Prognosis is guarded. The diagnosis, prognosis and therapeutic plans were discussed in detail with the patient and also with his family again today. MMTRACYL / IJN: [id number] /
--- NOTE | 2017-12-29 14:30 | PN ---
PROGRESS NOTE DATE OF SERVICE: 12/26/2017. HISTORY OF PRESENT ILLNESS: This is an 82-year-old white male who was admitted with right upper quadrant abdominal pain and the patient was getting sharp pain on and off and the patient also had some nausea and he was in the emergency room. He was found to have a CT scan did not show any acute process except that he has a right hydronephrosis and has a history of stent placement in the past in the ureter. The patient was admitted to the hospital for further evaluation and treatment. Patient was seen by Dr. Randle urologist. He did review his old x-rays and he did not see any significant change in the size of the hydronephrosis and the ureteral stent is in place. He also he recommended again no further urologic procedures. The patient was seen by [facility] and he also found his current symptoms had nothing in relation with his cardiac problem. Dr. Jimenez saw the patient from Gastroenterology and she recommended doing an upper endoscopy, which he has been scheduled. 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 MMODL / IJN: [id number] /
--- NOTE | 2018-02-10 04:53 | DS ---
DISCHARGE SUMMARY DATE OF ADMISSION: 12/24/2017. DATE OF DISCHARGE: 12/27/2017. DISCHARGE DIAGNOSES: 1. Upper abdominal pain with nausea. 2. Acute on chronic gastritis. 3. Right hydronephrosis with a past history of stent placement in the ureter and also history of nephrolithiasis. 4. Coronary artery disease with past history of multiple stent placement. 5. Hyperlipidemia. 6. Peripheral arterial disease. 7. Past history of carcinoma of the rectum treated by surgical resection and radiation treatment. HISTORY OF PRESENT ILLNESS: This is an 82-year-old white male who was complaining of upper abdominal pain for the past couple of weeks and the patient also had nauseated feeling, but patient was saying he was feeling hungry and pain comes and goes and it was very sharp pain in nature and the patient was brought to the emergency room. In the ER, he was extensively evaluated. His CT scan of the abdomen did not show any acute problem except that the patient had right hydronephrosis with the presence of a stent in the ureter. The patient's CBC was unremarkable. WBC count was 9.9, hemoglobin 14.2, platelet count 265,000. Sodium 140, potassium 4.5, BUN 20, and creatinine 1.81 and glucose 90. Cardiac enzymes within normal limits. Serum amylase and lipase also were within normal limits. The patient was admitted to the hospital for further evaluation and treatment. For details of the physical examination at the time of admission, please refer to the history and physical. HOSPITAL COURSE: The patient was given IV fluids and pain controlled with IV Dilaudid and also, the patient was seen by Dr. Randle in consultation and Dr. Randle felt that compared to his previous x-rays there was no change in the hydronephrosis and also the stent also was functioning as before and the patient was also seen by [facility] in consultation and there was no acute cardiac problem. The patient was seen by Dr. Jimenez in consultation from Gastroenterology. Dr. Jimenez did an upper endoscopy and did not find any significant pathology except that he has some gastritis. The patient was placed on Protonix and the patient has significant symptomatic improvement. The patient was then discharged home on 12/27/2017 and he was advised to continue on Protonix 40 mg p.o. daily and aspirin 325 mg p.o. daily and Lipitor 80 mg p.o. daily, Plavix 75 mg p.o. daily and lisinopril 20 mg p.o. daily. Continue with his multivitamin tablets and nitroglycerin sublingual p.r.n. Norvasc 10 mg p.o. daily and he was advised to follow a bland cardiac diet and he will seen in my office for followup in a week's time and he also will be following with Cardiology and the urologist and if his symptoms persist, he will also be seeing Dr. Gricel Jimenez for his stomach problem. MMODL / IJN: [id number] /
== END 2017-12-27 13:42 | disposition home or self-care (01) ==
LOC: EC 11:47 → 4MS4W 21:16 → INTOOBSV 21:16 → 4MS4W 22:00
PROVIDERS: ADMIT Internal Medicine; ATTEND Internal Medicine
DX: K29.00 Acute gastritis without bleeding (principal); K29.50 Unspecified chronic gastritis without bleeding; N13.30 Unspecified hydronephrosis; K29.80 Duodenitis without bleeding; K44.9 Diaphragmatic hernia without obstruction or gangrene; R53.1 Weakness; I25.5 Ischemic cardiomyopathy; I25.10 Atherosclerotic heart disease of native coronary artery without angina pectoris; I12.9 Hypertensive chronic kidney disease with stage 1 through stage 4 chronic kidney disease, or unspecified chronic kidney disease; N18.9 Chronic kidney disease, unspecified; M19.90 Unspecified osteoarthritis, unspecified site; L40.9 Psoriasis, unspecified; I73.9 Peripheral vascular disease, unspecified; E78.5 Hyperlipidemia, unspecified; K57.30 Diverticulosis of large intestine without perforation or abscess without bleeding; Z95.5 Presence of coronary angioplasty implant and graft; Z90.49 Acquired absence of other specified parts of digestive tract; Z93.3 Colostomy status; I25.2 Old myocardial infarction; Z96.0 Presence of urogenital implants; Z79.02 Long term (current) use of antithrombotics/antiplatelets; Z79.82 Long term (current) use of aspirin; Z79.899 Other long term (current) drug therapy; Z88.0 Allergy status to penicillin; Z88.8 Allergy status to other drugs, medicaments and biological substances; Z87.891 Personal history of nicotine dependence; Z87.442 Personal history of urinary calculi; Z85.048 Personal history of other malignant neoplasm of rectum, rectosigmoid junction, and anus; Z92.3 Personal history of irradiation; Z92.21 Personal history of antineoplastic chemotherapy; Z87.01 Personal history of pneumonia (recurrent); Z87.820 Personal history of traumatic brain injury; Z82.49 Family history of ischemic heart disease and other diseases of the circulatory system
CPT/HCPCS: 96361 ×7; 96374 ×2; 96375 ×2; 99285 ×2; 36415; 94760; 93005; 80053 ×2; 82150; 82550; 82553; 83605; 83690 ×2; 84484 ×2; 85025 ×2; 85610; 85730; 81003; 71046; 74018; 74177; 43235; G0378 ×4; J1200; J2765; J2001; J2704; Q9967

== ENCOUNTER → 2018-11-11 | Outpatient (CLI) | payer MEDICARE, OTHER ==
--- NOTE | 2018-11-11 13:26 | XR ---
EXAMINATION TYPE: XR chest 2V DATE OF EXAM: 11/11/2018 COMPARISON: Prior chest x-ray 12/24/2017 HISTORY: Cough TECHNIQUE: Frontal and lateral views of the chest are obtained. FINDINGS: There is no focal air space opacity, pleural effusion, or pneumothorax seen. The cardiac silhouette size is within normal limits. Coronary artery stent is noted and is stable, there are cor onary artery calcifications. Surgical clips present in the right upper quadrant. The aorta is dense. Stent is present within the abdomen. The osseous structures are intact. IMPRESSION: No acute cardiopulmonary process.
== END ==
LOC: RADXRMAIN 10:45
PROVIDERS: ATTEND Internal Medicine
DX: R05 Cough (principal)
CPT/HCPCS: 71046

== ENCOUNTER 2019-01-08 11:22 | Inpatient (IN) | payer MEDICARE, OTHER ==
[2019-01-08] MEDS ORDERED: ONDANSETRON 4 MG/2 ML VIAL IVP STA (11:51)
[2019-01-08] MEDS ORDERED: MORPHINE SULFATE 2 MG/ML SYRINGE IVP STA (11:51)
[2019-01-08] MEDS ORDERED: SODIUM CHLORIDE 0.9% 500 ML 500 ML IV STA (11:51)
--- NOTE | 2019-01-08 12:01 | ED ---
Abdominal Pain HPI - General Source: patient, RN notes reviewed Mode of arrival: ambulatory Limitations: no limitations <Alessandro Latif - Last Filed: 01/08/19 14:38> <Dain Win - Last Filed: 01/08/19 15:48> - General Chief Complaint: Abdominal Pain Stated Complaint: Abd Pain Time Seen by Provider: 01/08/19 11:44 - History of Present Illness Initial Comments: 83-year-old male presents emergency Department with chief complaint of abdominal pain. Patient states primarily right-sided abdominal pain. Patient states that he fell uses constipated stool softener and states that has not improved. Patient had multiple prior abdominal surgeries including cholecystomy appendectomy, bowel resection and colostomy secondary to colon cancer. Patient states he did have output into his colostomy this morning. Patient denies any dysuria or noted hematuria. Patient has fever, chills, night sweats, chest pain or shortness breath. Patient states nothing really makes the pain feel better or worse at this time. (Alessandro Latif) - Related Data Home Medications Medication Instructions Recorded Confirmed Multivitamins, Thera [Multivitamin 1 tab PO DAILY 07/16/17 01/08/19 (formulary)] amLODIPine [Norvasc] 10 mg PO DAILY 07/16/17 01/08/19 Aspirin 325 mg PO HS 12/24/17 01/08/19 Lisinopril 30 mg PO DAILY 01/08/19 01/08/19 Previous Rx's Medication Instructions Recorded Atorvastatin [Lipitor] 80 mg PO HS tab 04/10/17 Pantoprazole [Protonix] 40 mg PO DAILY #60 tablet. 12/27/17 Allergies Allergy/AdvReac Type Severity Reaction Status Date / Time zolpidem tartrate Allergy Severe Rash/Hives Verified 01/08/19 13:13 [From Ambien] lorazepam [From Ativan] Allergy Unknown Verified 01/08/19 13:13 Penicillins Allergy Unknown Verified 01/08/19 13:13 Review of Systems ROS Other: All systems not noted in ROS Statement are negative. <Alessandro Latif - Last Filed: 01/08/19 14:38> ROS Other: All systems not noted in ROS Statement are negative. <Dain Win - Last Filed: 01/08/19 15:48> ROS Statement: Those systems with pertinent positive or pertinent negative responses have been documented in the HPI. Past Medical History Past Medical History: Coronary Artery Disease (CAD), Cancer, Chest Pain / Angina, Hyperlipidemia, Hypertension, Myocardial Infarction (CT), Osteoarthritis (OA), Renal Disease, Skin Disorder, Vascular Disorder Additional Past Medical History / Comment(s): 1998 Colon/rectal cancer- colectomy/colostomy/chemo,radiation, psoriasis, kidney stones, fx. neck & ba ck/concussion from a fall years ago, 2006 pneumonia with bacteremia, diverticular dx.hospitalized in november at [facility] Last Myocardial Infarction Date:: 08/11/16 History of Any Multi-Drug Resistant Organisms: None Reported Past Surgical History: Appendectomy, Bladder Surgery, Bowel Resection, Cholecystectomy, Heart Catheterization With Stent, Orthopedic Surgery Additional Past Surgical History / Comment(s): Sep 2016 Cardiac stents x2,09/11/16 PTCA with stent to PDA branch of the RCA. Other surgical hx: 08/11/16 CARDIAC STENT. LEFT/RIGHT CATARACT, COLON RESECTION WITH COLOSTOMY, colonoscopies, bilateral iliac STENTs. R Carotid angioplasty, vertebral stent, right shoulder surg for small cracked bone, cystoscopies, lithotripsy, right ureteral stent, lumbar spurs removed, cervical fusion, feeding tube post cervical sx, laparotomy with extensive lysis of adhesions. Past Anesthesia/Blood Transfusion Reactions: No Reported Reaction Additional Past Anesthesia/Blood Transfusion Reaction / Comment(s): no hx blood transfusions Date of Last Stent Placement:: 09/11/16 Past Psychological History: No Psychological Hx Reported Smoking Status: Former smoker Past Alcohol Use History: None Reported Past Drug Use History: None Reported - Past Family History Father Additional Family Medical History / Comment(s): AGE 90 HEART Mother Family Medical History: Myocardial Infarction (CT) Additional Family Medical History / Comment(s): AT AGE [address] <Alessandro Latif - Last Filed: 01/08/19 14:38> General Exam Limitations: no limitations General appearance: alert, in no apparent distress Head exam: Present: atraumatic, normocephalic, normal inspection Neck exam: Present: normal inspection. Absent: tenderness, meningismus, lymphadenopathy Respiratory exam: Present: normal lung sounds bilaterally. Absent: respiratory distress, wheezes, rales, rhonchi, stridor Cardiovascular Exam: Present: regular rate, normal rhythm, normal heart sounds. Absent: systolic murmur, diastolic murmur, rubs, gallop, clicks GI/Abdominal exam: Present: soft, tenderness (Moderate right-sided), normal bowel sounds, other (Colostomy noted, no erythema). Absent: distended, guarding, rebound, rigid Extremities exam: Present: other (Lower extremity pulses equal bilaterally, 2+) Back exam: Absent: CVA tenderness (R), CVA tenderness (L) Skin exam: Present: warm, dry, intact, normal color. Absent: rash <Alessandro Latif - Last Filed: 01/08/19 14:38> Course Vital Signs 01/08/19 01/08/19 11:27 12:57 Temperature 98.2 F Pulse Rate 70 89 Respiratory 18 16 Rate Blood Pressure 200/86 180/89 O2 Sat by Pulse 99 98 Oximetry Medical Decision Making - Lab Data Result diagrams: 01/08/19 11:55 01/08/19 11:55 <Alessandro Latif - Last Filed: 01/08/19 14:38> - Lab Data Result diagrams: 01/08/19 11:55 01/08/19 11:55 <Dain Win - Last Filed: 01/08/19 15:48> - Medical Decision Making 83-year-old male presented to emergency department for abdominal pain. Patient's pain is improved at this time recent lab work, CT and urinalysis. States she has multiple findings including worsening hydronephrosis, most likely blocked ureteral stent., Concern for colon cancer recurrent, occlusive disorder of the iliacs, pancreatic Duct dilation. Patient will have consult to urology, oncology and GI and possible vascular. (Alessandro Latif) Patient was reevaluated by myself, Dr. Win. Patient resting comfortably in bed with mild discomfort right lower flank. CT results reviewed. Patient and family updated. Case was discussed in detail with Dr. rojas, covering for Dr. Stark, who will admit. He does request consult with urology, nephrology, GI, and oncology. Case also discussed with Dr. Wesley with neurology who will consult. (Dain Win) - Lab Data Lab Results 01/08/19 01/08/19 01/08/19 Range/Units 11:55 11:55 11:55 WBC 8.0 (3.8-10.6) k/uL RBC 4.38 (4.30-5.90) m/uL Hgb 12.8 L (13.0-17.5) gm/dL Hct 39.9 (39.0-53.0) % MCV 91.2 (80.0-100.0) fL MCH 29.3 (25.0-35.0) pg MCHC 32.2 (31.0-37.0) g/dL RDW 13.4 (11.5-15.5) % Plt Count 202 (150-450) k/uL Neutrophils % 60 % Lymphocytes % 28 % Monocytes % 7 % Eosinophils % 1 % Basophils % 1 % Neutrophils # 4.8 (1.3-7.7) k/uL Lymphocytes # 2.2 (1.0-4.8) k/uL Monocytes # 0.5 (0-1.0) k/uL Eosinophils # 0.1 (0-0.7) k/uL Basophils # 0.0 (0-0.2) k/uL Sodium 138 (137-145) mmol/L Potassium 4.8 (3.5-5.1) mmol/L Chloride 106 (98-107) mmol/L Carbon Dioxide 24 (22-30) mmol/L Anion Gap 8 mmol/L BUN 22 H (9-20) mg/dL Creatinine 0.97 (0.66-1.25) mg/dL Est GFR (CKD-EPI)AfAm 84 (>60 ml/min/1.73 sqM) Est GFR (CKD-EPI)NonAf 73 (>60 ml/min/1.73 sqM) Glucose 103 H (74-99) mg/dL Plasma Lactic Acid Jose 1.0 (0.7-2.0) mmol/L Calcium 9.4 (8.4-10.2) mg/dL Total Bilirubin 0.6 (0.2-1.3) mg/dL AST 25 (17-59) U/L ALT 37 (21-72) U/L Alkaline Phosphatase 85 (38-126) U/L Total Protein 7.1 (6.3-8.2) g/dL Albumin 4.2 (3.5-5.0) g/dL Amylase 122 H (30-110) U/L Lipase 296 (23-300) U/L Urine Color Urine Appearance (Clear) Urine pH (5.0-8.0) Ur Specific [place] (1.001-1.035) Urine Protein (Negative) Urine Glucose (UA) (Negative) Urine Ketones (Negative) Urine Blood (Negative) Urine Nitrite (Negative) Urine Bilirubin (Negative) Urine Urobilinogen (<2.0) mg/dL Ur Leukocyte Esterase (Negative) Urine WBC (0-5) /hpf Ur Squamous Epith Cells (0-4) /hpf Urine Mucus (None) /hpf 01/08/19 Range/Units 11:55 WBC (3.8-10.6) k/uL RBC (4.30-5.90) m/uL Hgb (13.0-17.5) gm/dL Hct (39.0-53.0) % MCV (80.0-100.0) fL MCH (25.0-35.0) pg MCHC (31.0-37.0) g/dL RDW (11.5-15.5) % Plt Count (150-450) k/uL Neutrophils % % Lymphocytes % % Monocytes % % Eosinophils % % Basophils % % Neutrophils # (1.3-7.7) k/uL Lymphocytes # (1.0-4.8) k/uL Monocytes # (0-1.0) k/uL Eosinophils # (0-0.7) k/uL Basophils # (0-0.2) k/uL Sodium (137-145) mmol/L Potassium (3.5-5.1) mmol/L Chloride (98-107) mmol/L Carbon Dioxide (22-30) mmol/L Anion Gap mmol/L BUN (9-20) mg/dL Creatinine (0.66-1.25) mg/dL Est GFR (CKD-EPI)AfAm (>60 ml/min/1.73 sqM) Est GFR (CKD-EPI)NonAf (>60 ml/min/1.73 sqM) Glucose (74-99) mg/dL Plasma Lactic Acid Jose (0.7-2.0) mmol/L Calcium (8.4-10.2) mg/dL Total Bilirubin (0.2-1.3) mg/dL AST (17-59) U/L ALT (21-72) U/L Alkaline Phosphatase (38-126) U/L Total Protein (6.3-8.2) g/dL Albumin (3.5-5.0) g/dL Amylase (30-110) U/L Lipase (23-300) U/L Urine Color Yellow Urine Appearance Clear (Clear) Urine pH 7.0 (5.0-8.0) Ur Specific [place] 1.018 (1.001-1.035) Urine Protein Negative (Negative) Urine Glucose (UA) Negative (Negative) Urine Ketones Negative (Negative) Urine Blood Negative (Negative) Urine Nitrite Negative (Negative) Urine Bilirubin Negative (Negative) Urine Urobilinogen <2.0 (<2.0) mg/dL Ur Leukocyte Esterase Small H (Negative) Urine WBC 5 (0-5) /hpf Ur Squamous Epith Cells <1 (0-4) /hpf Urine Mucus Rare H (None) /hpf Disposition <Alessandro Latif - Last Filed: 01/08/19 14:38> <Dain Win - Last Filed: 01/08/19 15:48> Clinical Impression: Hydronephrosis, right, Abdominal pain, Pancreatic duct dilated, Colonic mass Disposition: ADMITTED IP TO THIS HOSP Condition: Fair Referrals: Akash Stark MD [Primary Care Provider] - 1-2 days
[2019-01-08 12:28] LABS: Basophils % (A) 1 %; Eosinophils # (A) 0.1 k/uL (0-0.7); Eosinophils % (A) 1 %; HCT 39.9 % (39.0-53.0); HGB 12.8 gm/dL (13.0-17.5); Lymphocytes # (A) 2.2 k/uL (1.0-4.8); Lymphocytes % (A) 28 %; MCH 29.3 pg (25.0-35.0); MCHC 32.2 g/dL (31.0-37.0); MCV 91.2 fL (80.0-100.0); Mean Platelet Volume 8.5; Monocytes # (A) 0.5 k/uL (0-1.0); Monocytes % (A) 7 %; Neutrophils # (A) 4.8 k/uL (1.3-7.7); Neutrophils % (A) 60 %; Platelet Count 202 k/uL (150-450); RBC 4.38 m/uL (4.30-5.90); RDW 13.4 % (11.5-15.5)
[2019-01-08 12:37] LABS: Albumin 4.2 g/dL (3.5-5.0); Calcium 9.4 mg/dL (8.4-10.2); Potassium 4.8 mmol/L (3.5-5.1); Total Bilirubin 0.6 mg/dL (0.2-1.3); Total Protein 7.1 g/dL (6.3-8.2)
[2019-01-08] MEDS ORDERED: HYDROmorphone 0.5 MG/0.5 ML SYRINGE IVP STA (12:50)
[2019-01-08 12:52] LABS: Appearance,Urine Clear (Clear); Bilirubin,Urine Negative (Negative); Blood,Urine Negative (Negative); Color,Urine Yellow; Glucose,Urine (UA) Negative (Negative); Ketones,Urine Negative (Negative); Leukocyte Esterase,Urine Small (Negative); Mucus,Urine Rare /hpf; Nitrite,Urine Negative (Negative); Protein,Urine Negative (Negative); Specific Gravity,Urine 1.018 (1.001-1.035); Squamous Epithelial Cell,Urine <1 /hpf (0-4); Urobilinogen,Urine <2.0 mg/dL (<2.0); WBC,Urine 5 /hpf (0-5)
--- NOTE | 2019-01-08 13:40 | CT ---
EXAMINATION TYPE: CT abdomen pelvis w con DATE OF EXAM: 01/08/2019 COMPARISON: 12/24/2017 HISTORY: Right sided abdominal pain. CT DLP: 883.7 mGycm Automated exposure control for dose reduction was used. TECHNIQUE: Helical acquisition of images was performed from the lung bases through the pelvis. CONTRAST: Performed without Oral Contrast and with IV Contrast, patient injected with 100 mL of Isovue 300. FINDINGS: LUNG BASES: Minimal bibasilar dependent atelectasis is seen. Coronary artery stent versus severe athe rosclerosis is seen within the left main coronary artery. Incidentally noted retroareolar slightly as ymmetric right greater than left gynecomastia. LIVER/GB: Gallbladder surgically absent. Right hepatic lobe is shifted slightly anteriorly from promi nent retroperitoneal fat and the enlarged right kidney. PANCREAS: There is mild pancreatic ductal enlargement with narrowing at the pancreatic head. There is also a 5 mm hypoattenuating lesion in the uncinate process. Findings could be further evaluated with MRCP. SPLEEN: No significant abnormality is seen. ADRENALS: No significant abnormality is seen. KIDNEYS: There is severe right hydroureteronephrosis however a right ureteral stent is in place with its distal tip coiling at the right ureterovesicular junction. Right eccentric urinary bladder wall t hickening and elongated density measuring 1 cm and thickness lateral to the urinary bladder are again noted. There is moderate right perinephric fat stranding, increased from the prior of 12/24/2017. The re is delayed enhancement of the right kidney in comparison the left and asymmetric enlargement. Ther e is new mild left hydroureteronephrosis although no radiopaque obstructing calculus is seen there is slight thickening at the left ureterovesicular junction on image 79 of series 201. FREE AIR: No free air is visualized. ADENOPATHY: Adenopathy in the pelvis is difficult to evaluate as there is abnormal soft tissue thick ening and lack of oral contrast. No gross adenopathy in the abdomen is seen. REPRODUCTIVE ORGANS: Small left hydrocele is again noted URINARY BLADDER: No significant abnormality is seen. OSSEOUS STRUCTURES: Right iliac bone sclerotic lesion and nonspecific. Given the serpiginous density bone infarct or metastasis are possible. BOWEL: There is a diverting ostomy with partial colectomy seen. Sutures are noted at the rectosigmoi d junction with soft tissue density surrounding the mesial rectal fat and in the presacral space with numerous surgical clips. Abnormal soft tissue thickening may be on the basis of posttreatment change . OTHER: There is severe atherosclerosis of the abdominal aorta and its branches. There is occlusion of the bilateral internal iliac arteries. IMPRESSION: 1. SEVERE RIGHT HYDROURETERONEPHROSIS WITH RIGHT URETERAL STENT IN PLACE AND ECCENTRIC URINARY BLADDE R WALL THICKENING AT THE RIGHT URETEROVESICULAR JUNCTION. THERE IS INCREASE IN DEGREE OF MODERATE PER INEPHRIC FAT STRANDING IN COMPARISON TO THE PRIOR. NO PERINEPHRIC ABSCESS. RIGHT KIDNEY DOES DEMONSTR ATE ASYMMETRIC FUNCTIONING COMPARED TO THE LEFT AND ENLARGEMENT SUGGESTING ACUTE ON CHRONIC OBSTRUCTI ON. 2. NEW MILD LEFT HYDROURETERONEPHROSIS WITH SOFT TISSUE THICKENING AT THE LEFT URETEROVESICULAR JUNCT ION. 3. PANCREATIC DUCTAL DILATATION AND SUBCENTIMETER PANCREATIC UNCINATE PROCESS LESION THAT SHOULD BE F URTHER EVALUATED WITH MRCP. 4. 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 5. SOFT TISSUE THICKENING SURROUNDING THE COLORECTAL SURGICAL SITE, WITHIN THE PRESACRAL SPACE, AND S URROUNDING THE RIGHT URETER COULD BE ON THE BASIS OF POSTTREATMENT CHANGE ALTHOUGH RECURRENT NEOPLASM IS POSSIBLE AT THIS LOCATION.
[2019-01-08] MEDS ORDERED: NALOXONE 0.4 MG/ML 1 ML VIAL IV PRN (14:42)
[2019-01-08] MEDS ORDERED: ONDANSETRON 4 MG/2 ML VIAL IVP PRN (14:42)
[2019-01-08] MEDS ORDERED: HYDROmorphone 0.5 MG/0.5 ML SYRINGE IVP PRN (14:42)
[2019-01-08] MEDS ORDERED: ACETAMINOPHEN TAB 325 MG TAB PO PRN (14:42)
[2019-01-08] MEDS ORDERED: HYDROcodone/APAP 5-325MG 1 EACH TAB PO PRN (14:42)
--- NOTE | 2019-01-08 17:08 | XR ---
EXAMINATION TYPE: XR chest 2V DATE OF EXAM: 01/08/2019 COMPARISON: 11/11/2018 HISTORY: Abdominal pain TECHNIQUE: Frontal and lateral views of the chest are obtained. FINDINGS: There is no heart failure nor confluent pneumonic infiltrate. Heart is borderline enlarged . Thoracic aorta is atheromatous. There is no pleural effusion. Bony thorax is intact. IMPRESSION: No active cardiopulmonary disease. No adverse change compared to old exam.
[2019-01-08] MEDS: LISINOPRIL 10 MG TAB PO SCH (18:03)
[2019-01-08 19:00] LABS: INR 0.9 (<1.2); Partial Thromboplastin Time 25.6 sec (22.0-30.0); Prothrombin Time 9.8 sec (9.0-12.0)
--- NOTE | 2019-01-08 20:21 | HP ---
HISTORY AND PHYSICAL DATE OF SERVICE: 01/08/2019 HISTORY AND CHIEF COMPLAINT: The patient came because he had abdominal pain, mainly in the right lower quadrant as well as epigastric area. This pain started at 2 a.m. 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 HISTORY OF PRESENT ILLNESS: Mr. Derrick Hill is an 83-year-old white male living at home with his . He experienced severe pain in the upper abdomen and then it went down to the right lower quadrant. It started at 2 a.m. on today's date 01/08/2019. It was 9 out of 10 in intensity. He could not stand it, and at that time he called his son-in-law and they came to the hospital. He arrived by ambulatory to the emergency room. Patient has underlying past history of colostomy for colon cancer. He has had appendectomy, cholecystectomy and bowel resection. He has a past history of other medical problems, including bilateral stenting of the ureters with history of previous hydronephrosis. He was treated by Dr. Biswas. We did consult him. In the ER, the patient underwent CT scan of the abdomen with contrast. The result was indicating significant abnormality. They stated that he had severe right hydronephrosis and right ureteral stent in place. However, the distal tip was coiling at the right ureterovesicular junction and he had right eccentric bladder wall and thickening as well. He had an the elongated density measuring 1 cm. They found also that he had moderate right perinephric fat stranding as well as delayed enhancement of the right kidney in comparison with the left kidney with asymmetrical enlargement. The patient has a new left hydroureter, mild hydronephrosis in the left side; however, there is opaque obstructing calculus. There also was a finding that in the bowel he had a diverting colostomy and partial colostomy, and at the rectosigmoid junction there is a soft tissue density surrounding the fat. Also severe atherosclerosis of the abdominal aorta and its branches and he has occlusive bilateral internal iliac arteries by the CT scan. It was found also that he had pancreatic duct dilatation with subcentimeter pancreatic uncinate lesion. They recommended MRCP by Radiology to rule out malignancy. Beside the occlusion of the bilateral internal iliac arteries with severe atherosclerosis. With these documented on CT scan results and patient being dizzy anytime he sits down, that could be also hypotensive orthostatic as a possibility. With the presence of presacral abnormality, patient was admitted with the hydronephrosis, admitted for further evaluation and treatment. FAMILY HISTORY: The patient is . His recently came from [facility] after she had cervical spine spacing after compression fracture. The patient has 3 sons and 2 daughters. One was present with him along with his son-in-law. One of his daughters with a brain tumor. Past history he smokes pipes, smokes for from age 17 to age of [birth year]/14[birth year]2015 years and he quit 50 years ago and he was a smoker, a pack per day only. Any was also alcohol intake was when he was younger and he was mixed drink or on or intermittent alcohol. However, he does not drink currently. PREVIOUS SURGICAL/MEDICAL HISTORY: Includes: 1. Cholecystectomy, as mentioned. 2. Currently colostomy with colon cancer. 3. Gynecomastia, right more than the left. 4. Some basilar atelectasis. However, we did an x-ray of the chest to rule out any metastasis, and the chest x-ray is negative, with no active pulmonary disease or adverse changes compared with the old exam. The thoracic aorta was atheromatous and the heart had borderline enlargement. He had a colostomy. No recent anginal pain. He has hyperlipidemia, hypertension, osteoarthritis, renal disease and vascular disorder. His surgery was done in 1998 for colorectal cancer with colectomy and colostomy, chemotherapy and radiation. He has history of kidney stone and psoriasis. He had a neck and back concussion with a fall in 2006. Diverticular disease. He was hospitalized at [facility] in the past. He had myocardial infarction on 08/11/2016. He is confused about the time, as he stated this was last year. He had bladder surgery in the past as well and cardiac catheterization and stent. He had a cardiac stent in September 2016 and PTCA with a stent to the PDA and branch of the right coronary artery. He had on 08/11/2016 cardiac stent. He had cataract removal from the right and left. He had several colonoscopies that ended in resection and colostomy. He had right carotid angioplasty, vertebral stent, right shoulder surgery for a small cracked bone. He had several cystoscopies, lithotripsy and right ureteral stent. He had lumbar spurs removed, cervical fusion, and a history of laparotomy with extensive lysis of adhesions. The last stent was on 09/11/2016. He is a former smoker, as mentioned. No psychological problem or disease. At age of 60 by history he had a massive W[place]. CURRENT MEDICATIONS: Renewed. He was on: 1. Amlodipine. 2. Aspirin. 3. Atorvastatin. 4. Lisinopril with the history of hypertension and hypertensive heart disease. ALLERGIES: He has MULTIPLE ALLERGIES, with the history of allergy to: 1. AMBIEN. 2. LORAZEPAM. 3. PENICILLIN. SOCIAL HISTORY: He was a smoker from age of 17 to age of 33; 16 years. He quit 50 years ago. He smoked only a pack per day. He had had alcohol intake when he was younger, and he had mixed drinks or intermittent alcohol; however, he does not drink currently. REVIEW OF SYSTEMS: NEUROPSYCHIATRY: Negative. He had a history of stent in the vertebral artery in [place] by Dr. Schmitt after he fell down from a ladder and they took him to [place] at that time. CHEST: He said that he had 5 stents; could be more, but that is all we can get. He had also stents placed in the vascular tree by Dr. Lindsay. We will be consulting Dr. Lindsay. However, the pulses were present; diminished but present in both lower extremities. However, the CT scan indicates that the patient had severe internal iliac occlusion. We will be finding out from Dr. Lindsay for evaluation. Patient had also last year in July and at this time he had stenting, as he stated. He had a problem was his urine with the obstruction. Dr. Biswas will give us more information. The review of the rest of the 14 points was negative. PHYSICAL EXAMINATION: The patient's temperature on admission was 98.2. No fever. No chills. Pulse rate 70, respiratory rate 18, blood pressure on admission 200/86, mean blood pressure 124, saturation 99. Subsequent blood pressure was 180/89 and pulse ox 98% on room air. With the underlying hypertension uncontrolled, the patient will be started on his home medication today. HEENT: Head normocephalic, atraumatic. Pupils equal, reactive. Oropharynx negative. NECK: Supple. He apparently had a right vertebral artery stent. We tried to sit him up, but he got a feeling of dizziness and unusual discomfort. 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 CHEST: Clear to auscultation and percussion. HEART: PMI in the fifth intercostal space outside midclavicular line with underlying regular sinus rhythm, cardiomegaly. Previous WV, but sinus rhythm. We requested EKG as well. LUNGS: Clear to auscultation and percussion. No wheezes. No rhonchi. We did a chest x- ray to clarify the issue of whether there is any recurrence of malignancy or any transmission to the lungs as well as metastasis, which was negative at this time. ABDOMEN: At that time I examined the patient, he had no pain after receiving pain medication. That pain severely affected him and he felt nauseated. Subsequently on the exam he did have some discomfort, but not pain. There was fullness of the bilateral flanks, with the underlying hydronephrosis. The patient had a urine analysis and was found to have small leukocyte but afebrile and WBC only 5. We did not start him on any antibiotic at this time until the evaluation of the hydronephrosis by Dr. Biswas The suprapubic area was negative. GENITALIA: He has a foreskin. He is not circumcised. He is able to urinate; however, the question is whether he is able to empty his bladder or not, and the functionality of the stent present. There is a new presence of left-sided hydroureteronephrosis. EXTREMITIES: Actually no edema and positive pulses. He had onychomycosis of the toenails bilaterally. Pulses were 1+ over 2+ bilaterally. He had a stent in the femoral that was placed by Dr. Lindsay. However, Dr. Lindsay is consulted to correct my information from the patient as well as to evaluate the CT scan result with the severe to complete occlusion of the internal iliac arteries bilaterally. NEUROLOGICAL EVALUATION: Awake, confused with his medication and with events, but he appeared to be clear otherwise. His blood pressure was extremely high on admission and the patient was started on his medication. ASSESSMENT: 1. Severe abdominal pain. 2. The etiology could be associated with hydroureter, hydronephrosis bilaterally, worse on the right than the left, with coiling of the stent on the right. However, I am not sure he has a stent on the left or not; not clear on observation in the CT scan. 3. His renal function is normal; however, he had significant disease, and for that reason I did also ask Nephrology to evaluate and help us with the future after clearance from the urologist, Dr. Biswas, and after correction of the stent or placement of a new stent on the right and the left. 4. Underlying abnormalities in the pancreas, with the small spot on the uncinate process of the pancreas. We consulted Gastroenterology for evaluation as well as possibility of future MRCP as recommended by the radiologist. 5. Gastroenterology was also asked to evaluate whether there is any recurrence of this tumor, with the multiple shadows in the area of the pelvis. 6. Underlying cancer of the colon. We consulted Oncology, Dr. Jha, to evaluate for underlying recurrence of cancer as well as to review the CT scan in light of the finding regarding the pancreas or the colon. 7. Hypertension, uncontrolled, with the present systolic 200. That could be associated with the pain. Patient was started on his medication, and we will see tomorrow if and how that will be improving his blood pressure. It was started today. The question is: The patient has history of nephrolithiasis as well and lithotripsy in 2002. He has also a history of chemo and radiation in 1989, as they said. With these findings, probably we will be starting the patient on DVT prophylaxis as well until he is seen by Urology as well as Cardiology. Patient will be checked for his postural hypotension as well. Further treatment depends on the patient's condition. MMODL / IJN: [id number] /
[2019-01-08] MEDS: amLODIPine 10 MG TAB PO SCH (20:37)
[2019-01-08] MEDS: ASPIRIN 325 MG TAB PO SCH (20:38)
[2019-01-08] MEDS: ATORVASTATIN 80 MG TAB PO SCH (20:38)
[2019-01-08] MEDS: HEPARIN SODIUM,PORCINE 5,000 UNIT/ML 1 ML VIAL SQ SCH (20:38)
[2019-01-09] MEDS: PANTOPRAZOLE 40 MG TABLET PO SCH (06:55)
[2019-01-09] MEDS: MULTIVITAMINS, THERA 1 EACH TAB PO SCH (07:44)
[2019-01-09] MEDS: amLODIPine 10 MG TAB PO SCH (08:02)
[2019-01-09] MEDS: HEPARIN SODIUM,PORCINE 5,000 UNIT/ML 1 ML VIAL SQ SCH ×2 (08:03→20:56)
[2019-01-09] MEDS: LISINOPRIL 10 MG TAB PO SCH (08:03)
[2019-01-09 08:18] LABS: HCT 35.3 % (39.0-53.0); HGB 12.1 gm/dL (13.0-17.5); MCHC 34.1 g/dL (31.0-37.0); MCV 90.8 fL (80.0-100.0); Platelet Count 175 k/uL (150-450); RBC 3.89 m/uL (4.30-5.90); RDW 13.9 % (11.5-15.5)
[2019-01-09] MEDS ORDERED: hydrALAZINE HCL 20 MG/ML 1 ML VIAL IVP PRN (08:30)
--- NOTE | 2019-01-09 08:32 | P.NPCON ---
History of Present Illness - Reason for Consult acute renal failure - History of Present Illness Reason for consultation: Hydroureter History of present illness: Patient is a 83-year-old male seen in consultation for hydroureter. Patient presented to the hospital with right-sided abdominal pain. CAT scan of the abdomen and pelvis with IV contrast was done in the ER which revealed severe right hydroureteronephrosis. Patient states he has a right-sided ureteral stent in place which was last changed earlier this year. He has history of colon cancer and has a colostomy in place. Oral intake has been good. Denies use of nonsteroidals. Denies any history of kidney disease. Denies family history of kidney disease. Patient's GFR is at baseline. Urinalysis is benign. Vital signs are stable. General: The patient appeared well nourished and normally developed. HEENT: Head exam is unremarkable. Neck is without jugular venous distension. LUNGS: Lungs are clear to auscultation and percussion. Breath sounds decreased. HEART: Rate and Rhythm are regular. First and second heart sounds normal. No murmurs, rubs or gallops. ABDOMEN: Abdominal exam reveals normal bowel sounds. Non-tender and non- distended. No evidence of peritonitis. EXTREMITITES: No clubbing, cyanosis, or edema. Past Medical History Past Medical History: Coronary Artery Disease (CAD), Cancer, Chest Pain / Angina, Hyperlipidemia, Hypertension, Myocardial Infarction (MT), Osteoarthritis (OA), Pneumonia, Renal Disease, Skin Disorder, Vascular Disorder Additional Past Medical History / Comment(s): 1998 Colon/rectal cancer-colectomy/colostomy/chemo,radiation, psoriasis, kidney stones, cystoscopy, fx. neck & back/concussion from a fall years ago, 2006 pneumonia with bacteremia, diverticular dx.hospitalized in november at [facility] Last Myocardial Infarction Date:: 08/11/16 History of Any Multi-Drug Resistant Organisms: None Reported Past Surgical History: Appendectomy, Bladder Surgery, Bowel Resection, Cholecystectomy, Heart Catheterization With Stent, Orthopedic Surgery Additional Past Surgical History / Comment(s): Sep 2016 Cardiac stents x2, PTCA with stent to PDA branch of the RCA. Other surgical hx: 08/11/16 CARDIAC STENT. LEFT/RIGHT CATARACT, COLON RESECTION WITH COLOSTOMY, colonoscopies, bilateral iliac STENTs. R Carotid angioplasty, vertebral stent, right shoulder surg for small cracked bone, cystoscopies, lithotripsy, right ureteral stent, lumbar spurs removed, cervical fusion, feeding tube post cervical sx, laparotomy with extensive lysis of adhesions. Past Anesthesia/Blood Transfusion Reactions: No Reported Reaction Additional Past Anesthesia/Blood Transfusion Reaction / Comment(s): no hx blood transfusions Date of Last Stent Placement:: 09/11/16 Past Psychological History: No Psychological Hx Reported Additional Psychological History / Comment(s): Pt resides with his spouse in a s [place] home that has 2 porch steps. He is independent.no home care services. has a bp machine at home. 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 Smoking Status: Former smoker Past Alcohol Use History: None Reported Additional Past Alcohol Use History / Comment(s): STARTED SMOKING AT AGE 18- SMOKED 1 PPD, QUIT about 1969. Past Drug Use History: None Reported - Past Family History Father Additional Family Medical History / Comment(s): AGE 90 HEART Mother Family Medical History: Myocardial Infarction (MT) Additional Family Medical History / Comment(s): AT AGE 60 MASSIVE MT Medications and Allergies Home Medications Medication Instructions Recorded Confirmed Type Atorvastatin [Lipitor] 80 mg PO HS tab 04/10/17 01/08/19 Rx Multivitamins, Thera [Multivitamin 1 tab PO DAILY 07/16/17 01/08/19 History (formulary)] amLODIPine [Norvasc] 10 mg PO DAILY 07/16/17 01/08/19 History Aspirin 325 mg PO HS 12/24/17 01/08/19 History Pantoprazole [Protonix] 40 mg PO DAILY #60 tablet. 12/27/17 01/08/19 Rx Lisinopril 30 mg PO DAILY 01/08/19 01/08/19 History Allergies Allergy/AdvReac Type Severity Reaction Status Date / Time zolpidem tartrate Allergy Severe Rash/Hives Verified 01/08/19 13:13 [From Ambien] lorazepam [From Ativan] Allergy Unknown Verified 01/08/19 13:13 Penicillins Allergy Unknown Verified 01/08/19 13:13 Physical Exam Vitals: Vital Signs Temp Pulse Pulse Resp BP BP BP 01/08/19 23:52 98.3 F 58 L 15 01/08/19 21:59 166/81 176/74 01/08/19 21:50 68 16 01/08/19 20:05 98.3 F 68 16 01/08/19 18:00 67 18 170/78 01/08/19 15:00 79 18 189/91 01/08/19 12:57 89 16 180/89 01/08/19 11:27 98.2 F 70 18 200/86 BP BP Pulse Ox 01/08/19 23:52 103/49 96 01/08/19 21:59 180/79 01/08/19 21:50 01/08/19 20:05 174/81 95 01/08/19 18:00 97 01/08/19 15:00 98 01/08/19 12:57 98 01/08/19 11:27 99 Intake and Output 01/08/19 01/09/19 01/09/19 22:59 06:59 14:59 Output Total 600 Balance -600 Output: Urine 600 Other: Voiding Method Urinal Urinal # Voids 2 Results - Lab Results Most recent lab results Calcium 9.4 mg/dL (8.4-10.2) 01/08/19 11:55 01/08/19 11:55 01/08/19 11:55 Assessment and Plan Plan: Assessment: 1. Right-sided hydroureteronephrosis scheduled for ureteral stent exchange today. GFR at baseline. 2. Benign hypertension. Blood pressure is high. Partially due to pain. 3. History of colon cancer. Patient has a colostomy. Plan: Maintain current antihypertensives. I will add hydralazine 10 mg every 4 hours as needed for systolic blood pressure greater than 160. Thank you for the consultation. I will continue to follow the patient with you during his hospital stay.
[2019-01-09] MEDS ORDERED: LISINOPRIL 30 MG PO SCH (09:00)
[2019-01-09] MEDS ORDERED: LACTATED RINGERS 1,000 ML IV ONE (10:56)
--- NOTE | 2019-01-09 11:03 | P.CONS ---
History of Present Illness - Reason for Consult Consult date: 01/09/19 Dilated pancreatic duct Requesting physician: Akash Stark - Chief Complaint Right lower abdominal discomfort - History of Present Illness 83-year-old gentleman with a history of cholecystectomy, rectal cancer status post bowel surgery colostomy chemoradiation, CAD with PCI stent, renal disease, hypertension, hyperlipidemia, [place] presents with right lower abdominal discomfort without changes in his ostomy output. No gross hematemesis hematochezia melena hematuria. Consult requested for pancreatic duct dilatation. CT abdomen and pelvis reported mild pancreatic ductal enlargement with narrowing at the pancreatic head with a 5 mm hypoattenuating lesion in the uncinate process. Severe right hydroureteronephrosis with right ureteral stent in place, right ureter could be on the basis of posttreatment change although recurrent neoplasm is possible at this location. Mild left hydroureteronephrosis with soft tissue thickening at the left ureterovesical junction. Soft tissue thickening surrounding colorectal surgical site within the presacral space. White count 6. Hemoglobin 12.1. Lipase 296. LFTs within normal limits. No history of known liver or pancreatic disorders. No history of pancreatitis. No history of alcoholism. Patient is scheduled today for cystoscopy right ureteral stent changed today possible left retrograde pyelogram possible ureteroscopy possible left ureteral stent insertion with urology. Review of Systems Constitutional: Denies fever, chills, sweats, weight gain, or loss. HEENT: Negative for migraines, blurred vision or loss, earaches, drainage, tinnitus, oral mucosal lesions, dysphagia, or odynophagia. Cardiac: Negative for chest pain, arrhythmias, or palpitation. Respiratory: Negative for shortness of breath, hemoptysis, cough, or sputum production. Gastrointestinal: See HPI for pertinent findings. Genitourinary: Negative for hematuria, urgency, frequency, polyuria, dysuria, or penile discharge. Musculoskeletal: Negative for muscle aches, swelling, arthritis, and arthralgias. Neurologic: Negative for stroke or TIA. Endocrine: Negative for thyroid problems. Skin: Negative for rash or itching. Psychiatric: Negative history for depression and anxiety Past Medical History Past Medical History: Coronary Artery Disease (CAD), Cancer, Chest Pain / Angina, Hyperlipidemia, Hypertension, Myocardial Infarction ([place]), Osteoarthritis (OA), Pneumonia, Renal Disease, Skin Disorder, Vascular Disorder Additional Past Medical History / Comment(s): 1998 Colon/rectal cancer-colectomy/colostomy/chemo,radiation, psoriasis, kidney stones, cystoscopy, fx. neck & back/concussion from a fall years ago, 2006 pneumonia with bacteremia, diverticular dx.hospitalized in november at [facility] Last Myocardial Infarction Date:: 08/11/16 History of Any Multi-Drug Resistant Organisms: None Reported Past Surgical History: Appendectomy, Bladder Surgery, Bowel Resection, Cholecystectomy, Heart Catheterization With Stent, Orthopedic Surgery Additional Past Surgical History / Comment(s): Sep 2016 Cardiac stents x2, PTCA with stent to PDA branch of the RCA. Other surgical hx: 08/11/16 CARDIAC STENT. LEFT/RIGHT CATARACT, COLON RESECTION WITH COLOSTOMY, colonoscopies, bilateral iliac STENTs. R Carotid angioplasty, vertebral stent, right shoulder surg for small cracked bone, cystoscopies, lithotripsy, right ureteral stent, lumbar spurs removed, cervical fusion, feeding tube post cervical sx, laparotomy with extensive lysis of adhesions. Past Anesthesia/Blood Transfusion Reactions: No Reported Reaction Additional Past Anesthesia/Blood Transfusion Reaction / Comm: no hx blood transfusions Date of Last Stent Placement:: 09/11/16 Past Psychological History: No Psychological Hx Reported Additional Psychological History / Comment(s): Pt resides with his spouse in a single story home that has 2 porch steps. He is independent.no home care services. has a bp machine at home. 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 Smoking Status: Former smoker Past Alcohol Use History: None Reported Additional Past Alcohol Use History / Comment(s): STARTED SMOKING AT AGE 18-SM OKED 1 PPD, QUIT about 1970. Past Drug Use History: None Reported - Past Family History Father Additional Family Medical History / Comment(s): AGE 90 HEART Mother Family Medical History: Myocardial Infarction ([place]) Additional Family Medical History / Comment(s): AT AGE 60 MASSIVE ND Medications and Allergies Home Medications Medication Instructions Recorded Confirmed Type Atorvastatin [Lipitor] 80 mg PO HS tab 04/10/17 01/08/19 Rx Multivitamins, Thera [Multivitamin 1 tab PO DAILY 07/16/17 01/08/19 History (formulary)] amLODIPine [Norvasc] 10 mg PO DAILY 07/16/17 01/08/19 History Aspirin 325 mg PO HS 12/24/17 01/08/19 History Pantoprazole [Protonix] 40 mg PO DAILY #60 tablet. 12/27/17 01/08/19 Rx Lisinopril 30 mg PO DAILY 01/08/19 01/08/19 History Allergies Allergy/AdvReac Type Severity Reaction Status Date / Time zolpidem tartrate Allergy Severe Rash/Hives Verified 01/08/19 13:13 [From Ambien] lorazepam [From Ativan] Allergy Unknown Verified 01/08/19 13:13 Penicillins Allergy Unknown Verified 01/08/19 13:13 Physical Exam Vitals: Vital Signs Temp Pulse Pulse Resp BP BP BP 01/09/19 10:50 97.6 F 51 L 18 01/09/19 08:00 97.6 F 53 L 18 01/08/19 23:52 98.3 F 58 L 15 01/08/19 21:59 166/81 176/74 01/08/19 21:50 68 16 01/08/19 20:05 98.3 F 68 16 01/08/19 18:00 67 18 170/78 01/08/19 15:00 79 18 189/91 01/08/19 12:57 89 16 180/89 01/08/19 11:27 98.2 F 70 18 200/86 BP BP Pulse Ox 01/09/19 10:50 187/77 95 01/09/19 08:00 151/72 93 L 01/08/19 23:52 103/49 96 01/08/19 21:59 180/79 01/08/19 21:50 01/08/19 20:05 174/81 95 01/08/19 18:00 97 01/08/19 15:00 98 01/08/19 12:57 98 01/08/19 11:27 99 Intake and Output 01/08/19 01/09/19 01/09/19 22:59 06:59 14:59 Output Total 600 400 Balance -600 -400 Output: Urine 600 400 Other: Voiding Method Urinal Urinal # Voids 2 1 General appearance: The patient is alert, oriented, in no acute distress. HET: Head is normocephalic and atraumatic. Pupils are equal and reactive. Oropharynx is clear without lesions. Neck: Supple without lymphadenopathy. Trachea midline. Heart: S1 S2. Regular rate and rhythm. Lungs: No crackles or wheezes are heard. Abdomen: Soft, very mild right lower quadrant tenderness ostomy in place functioning with stool and air, nondistended with bowel sounds. No peritoneal signs. No palpable organomegaly or masses. Extremities: Normal skin color and turgor. No cyanosis, rash, ulceration, clubbing, or edema. Radial and pedal pulses are 2/4 bilaterally. Neurological: No focal deficits. Strength and sensation are grossly intact. Results CBC & Chem 7: 01/09/19 07:40 01/08/19 11:55 Labs: Abnormal Lab Results - Last 24 Hours (Table) 01/08/19 01/08/19 01/08/19 Range/Units 11:55 11:55 11:55 RBC (4.30-5.90) m/uL Hgb 12.8 L (13.0-17.5) gm/dL Hct (39.0-53.0) % BUN 22 H (9-20) mg/dL Glucose 103 H (74-99) mg/dL Amylase 122 H (30-110) U/L Ur Leukocyte Esterase Small H (Negative) Urine Mucus Rare H (None) /hpf 01/09/19 Range/Units 07:40 RBC 3.89 L (4.30-5.90) m/uL Hgb 12.1 L (13.0-17.5) gm/dL Hct 35.3 L (39.0-53.0) % BUN (9-20) mg/dL Glucose (74-99) mg/dL Amylase (30-110) U/L Ur Leukocyte Esterase (Negative) Urine Mucus (None) /hpf CT scan - abdomen: report reviewed (Dr. Morrissey) Assessment and Plan (1) Abdominal pain Narrative/Plan: 83-year-old male with a history of rectal cancer late 1990s status post chemoradiation, surgery with colostomy admitted with right lower abdominal discomfort CT abdomen and pelvis reported severe right hydroureteronephrosis with right ureteral stent in place with eccentric urinary bladder wall thickening. New mild left hydroureteronephrosis with soft tissue thickening at the left ureterovesicular junction. Mild dilatation of the pancreatic duct and subcentimeter pancreatic uncinate process lesion of unclear etiology. Soft tis ivan thickening surrounding the colorectal surgical site within the presacral space surrounding right ureter could be on the basis of posttreatment change recurrent neoplasm could not be excluded. LFTs lipase within normal limits. Current Visit: Yes Status: Acute Code(s): R10.9 - UNSPECIFIED ABDOMINAL PAIN SNOMED Code(s): 85841717 Plan: 1. Recommend outpatient follow-up regarding CT findings of mild dilatation of pancreatic duct, LFTs and lipase within normal limits. Will discuss outpatient MRCP versus endoscopic ultrasound as clinically indicated. Thank you for this kind referral and the opportunity to participate in the care of your patient. This consultation was discussed with Dr. Morrissey. The impression and plan of care have been directed as dictated.
--- NOTE | 2019-01-09 11:18 | P.GSCN ---
History of Present Illness Consult date: 01/08/19 Reason for Consult: Hydronephrosis Requesting physician: Glenn Farr History of present illness: The patient is an 83-year-old white male well known to me. 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 He was noted to have marked right hydroureteronephrosis in 2012. He underwent placement of a right ureteral stent in May 2013, and the stent has been changed on an annual basis since that time. This was performed most recently in September 2018. The we removed stent at that time was noted not to be calcified, so the plan was for him to undergo repeat stent change in September 2019. However, he is now admitted with right- sided abdominal pain and nausea. Review of Systems - Constitutional Denies chills, Denies fever - Gastrointestinal Reports abdominal pain, Reports nausea - Genitourinary Denies hematuria Past Medical History Past Medical History: Coronary Artery Disease (CAD), Cancer, Chest Pain / Angina, Hyperlipidemia, Hypertension, Myocardial Infarction ([place]), Osteoarthritis (OA), Renal Disease, Skin Disorder, Vascular Disorder Additional Past Medical History / Comment(s): 1998 Colon/rectal cancer-colectomy/colostomy/chemo,radiation, psoriasis, kidney stones, fx. neck & back/concussion from a fall years ago, 2006 pneumonia with bacteremia, diverticular dx.hospitalized in november at [facility] Last Myocardial Infarction Date:: 08/11/16 History of Any Multi-Drug Resistant Organisms: None Reported Past Surgical History: Appendectomy, Bladder Surgery, Bowel Resection, Cholecystectomy, Heart Catheterization With Stent, Orthopedic Surgery Additional Past Surgical History / Comment(s): Sep 2016 Cardiac stents x2, PTCA with stent to PDA branch of the RCA. Other surgical hx: 08/11/16 CARDIAC STENT. LEFT/RIGHT CATARACT, COLON RESECTION WITH COLOSTOMY, colonoscopies, bilateral iliac STENTs. R Carotid angioplasty, vertebral stent, right shoulder surg for small cracked bone, cystoscopies, lithotripsy, right ureteral stent, lumbar spurs removed, cervical fusion, feeding tube post cervical sx, laparotomy with extensive lysis of adhesions. Past Anesthesia/Blood Transfusion Reactions: No Reported Reaction Additional Past Anesthesia/Blood Transfusion Reaction / Comm: no hx blood transfusions Date of Last Stent Placement:: 09/11/16 Past Psychological History: No Psychological Hx Reported Smoking Status: Former smoker Past Alcohol Use History: None Reported Past Drug Use History: None Reported - Past Family History Father Additional Family Medical History / Comment(s): AGE 90 HEART Mother Family Medical History: Myocardial Infarction ([place]) Additional Family Medical History / Comment(s): AT AGE 60 MASSIVE [place] Medications and Allergies Home Medications Medication Instructions Recorded Confirmed Type Atorvastatin [Lipitor] 80 mg PO HS tab 04/10/17 01/08/19 Rx Multivitamins, Thera [Multivitamin 1 tab PO DAILY 07/16/17 01/08/19 History (formulary)] amLODIPine [Norvasc] 10 mg PO DAILY 07/16/17 01/08/19 History Aspirin 325 mg PO HS 12/24/17 01/08/19 History Pantoprazole [Protonix] 40 mg PO DAILY #60 tablet. 12/27/17 01/08/19 Rx Lisinopril 30 mg PO DAILY 01/08/19 01/08/19 History Allergies Allergy/AdvReac Type Severity Reaction Status Date / Time zolpidem tartrate Allergy Severe Rash/Hives Verified 01/08/19 13:13 [From Ambien] lorazepam [From Ativan] Allergy Unknown Verified 01/08/19 13:13 Penicillins Allergy Unknown Verified 01/08/19 13:13 Surgical - Exam Vital Signs Temp Pulse Resp BP Pulse Ox 98.2 F 70 18 200/86 99 01/08/19 11:27 01/08/19 11:27 01/08/19 11:27 01/08/19 11:27 01/08/19 11:27 - General well developed, well nourished, no distress - Respiratory normal respiratory effort - Abdomen Abdomen: soft, non tender, no guarding, no rigid, no rebound Results - Labs 01/09/19 07:40 01/08/19 11:55 Abnormal Lab Results - Last 24 Hours (Table) 01/08/19 01/08/19 01/08/19 Range/Units 11:55 11:55 11:55 Hgb 12.8 L (13.0-17.5) gm/dL BUN 22 H (9-20) mg/dL Glucose 103 H (74-99) mg/dL Amylase 122 H (30-110) U/L Ur Leukocyte Esterase Small H (Negative) Urine Mucus Rare H (None) /hpf Diabetes panel 01/08/19 Range/Units 11:55 Sodium 138 (137-145) mmol/L Potassium 4.8 (3.5-5.1) mmol/L Chloride 106 (98-107) mmol/L Carbon Dioxide 24 (22-30) mmol/L BUN 22 H (9-20) mg/dL Creatinine 0.97 (0.66-1.25) mg/dL Glucose 103 H (74-99) mg/dL Calcium 9.4 (8.4-10.2) mg/dL AST 25 (17-59) U/L ALT 37 (21-72) U/L Alkaline Phosphatase 85 (38-126) U/L Total Protein 7.1 (6.3-8.2) g/dL Albumin 4.2 (3.5-5.0) g/dL Calcium panel 01/08/19 Range/Units 11:55 Calcium 9.4 (8.4-10.2) mg/dL Albumin 4.2 (3.5-5.0) g/dL Pituitary panel 01/08/19 Range/Units 11:55 Sodium 138 (137-145) mmol/L Potassium 4.8 (3.5-5.1) mmol/L Chloride 106 (98-107) mmol/L Carbon Dioxide 24 (22-30) mmol/L BUN 22 H (9-20) mg/dL Creatinine 0.97 (0.66-1.25) mg/dL Glucose 103 H (74-99) mg/dL Calcium 9.4 (8.4-10.2) mg/dL Adrenal panel 01/08/19 Range/Units 11:55 Sodium 138 (137-145) mmol/L Potassium 4.8 (3.5-5.1) mmol/L Chloride 106 (98-107) mmol/L Carbon Dioxide 24 (22-30) mmol/L BUN 22 H (9-20) mg/dL Creatinine 0.97 (0.66-1.25) mg/dL Glucose 103 H (74-99) mg/dL Calcium 9.4 (8.4-10.2) mg/dL Total Bilirubin 0.6 (0.2-1.3) mg/dL AST 25 (17-59) U/L ALT 37 (21-72) U/L Alkaline Phosphatase 85 (38-126) U/L Total Protein 7.1 (6.3-8.2) g/dL Albumin 4.2 (3.5-5.0) g/dL - Imaging CT scan - abdomen: report reviewed, image reviewed Assessment and Plan (1) Acquired ureteral stricture Current Visit: Yes Status: Acute Code(s): N13.5 - CROSSING VESSEL AND STRICT URE OF URETER W/O HYDRONEPHROSIS SNOMED Code(s): 044386922 Plan: The etiology of Mr. Hill's right-sided abdominal pain is unclear, and may not be urologic in nature. It is unlikely that his stent is occluded. Nonetheless, the left hydronephrosis is a new finding. In view of this, he will undergo cystoscopy with left retrograde pyelogram, possible left ureteral stent insertion. The right ureteral stent will be changed, and ureteroscopy will be performed if indicated. Time with Patient: Greater than 30
[2019-01-09] MEDS ORDERED: fentaNYL (PF) 50 MCG/ML 2 ML AMP ONE (11:50)
[2019-01-09] MEDS ORDERED: ePHEDrine SULFATE/0.9% NACL/PF 50 MG/5 ML SYRINGE IV ONE (11:50)
[2019-01-09] MEDS ORDERED: SUCCINYLCHOLINE CHLORIDE 100 MG/5 ML SYR IV ONE (11:50)
[2019-01-09] MEDS ORDERED: PROPOFOL 10 MG/ML 20 ML VIAL IV ONE (11:50)
[2019-01-09] MEDS ORDERED: LIDOCAINE 1% INJ 10MG/ML (20 ML MDV) ONE (11:50)
[2019-01-09] MEDS ORDERED: IOHEXOL 350 MG/ML 50 ML in EMPTY BAG 1 BAG IRRIGATION ONE (12:22)
--- NOTE | 2019-01-09 12:45 | P.OP ---
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 He was noted to have marked right hydroureteronephrosis in 2012. He underwent placement of a right ureteral stent in May 2013, and the stent has been changed on an annual basis since that time. This was performed most recently in September 2018. He is now admitted with right-sided abdominal pain and nausea. A computed tomography scan shows marked right hydronephrosis some mild left hydronephrosis. Operative Findings: Right ureteral stent changed without complication. Angulation of the left mid ureter was noted, and there is some fullness of the left renal pelvis, but no overt hydronephrosis and the left-sided system drains well. Description of Procedure: The patient was taken to the operating room and placed in the dorsolithotomy position, with legs supported in Toi stirrups. The external genitalia was prepped and draped sterilely. The 30 lens was used to introduce the 22-Polish Stortz cystoscopic sheath through the urethra and into the bladder under direct vision. The prostatic urethra showed no significant obstruction, though the prostate appeared to be somewhat frozen due to prior radiation therapy. The bladder was examined in its entirety. No tumors or foreign bodies were seen. The distal end of the right ureteral stent appeared normal. The left ureteral orifice appeared normal, and clear urine effluxed from it. Using a 10-Polish cone-tip catheter, a left retrograde pyelogram was performed in the standard fashion. The entire course of the ureter was seen on fluoroscopy. Angulation of the left mid ureter was noted at the level of L4-L5, but there was no obstruction noted. Mild fullness of the left intrarenal collecting system was noted. There were no filling defects. The system drained well. Grasping forceps were used to grasp the distal end of the right ureteral stent, which was removed. A 0.035 inch Glidewire was passed through the cystoscope. The right ureteral orifice was cannulated, and the Glidewire was slowly advanced up to the renal pelvis. A 24 cm, 7-Polish double-J ureteral stent was placed over the wire. Proper stent positioning was verified fluoroscopically and endoscopically. The bladder was emptied and the cystoscope removed. The patient tolerated the procedure well was taken to the recovery room in stable condition.
--- NOTE | 2019-01-09 14:43 | FL ---
Fluoroscopy HISTORY: Retrograde pyelogram, right ureteral stent placement 94 seconds fluoroscopy time supplied to the referring clinician. 8 intraoperative C-arm images docum ent the procedure. See dictated report from urology.
--- NOTE | 2019-01-09 18:14 | P.PN ---
Subjective Progress Note Date: 01/09/19 Principal diagnosis: Diagnosis: #1 acute severe abdominal pain. #2 bilateral hydroureter hydronephrosis #3 left colostomy with history of colectomy and colostomy bag due to rectal cancer. #4 probable adhesions. #5 uncinate process of pancreas abnormalities and dilated pancreatic duct will be followed by Dr. Ramirez he has outpatient. #6 hypertension with hypertensive heart disease #7 severe atherosclerosis with the arterial vascular disease #8 bilateral internal carotid occlusion by the computed tomography scan #9 peripheral vascular disease. #10 coronary artery disease and atherosclerotic heart disease with previous myocardial infarction. There is a progress note date of service 01/09/[address] rojas,. PCP Dr. Akash Stark. Patient seen and evaluated today and significant discussion with the patient. Patient taken to the operative room and had a stent placed on the left ureter by Dr. Wesley urologist with the underlying [place] ureter hydronephrosis bila teral. Seen by Dr. Mcgrath nephrology and he adjusted medication for hypertension with the adding hydralazine IV push when necessary [address]. [address] Blackmon who did place a stent in the vascular tree of the lower extremities to the evaluate with CAT scan presentation of occlusion of the internal iliac arteries bilateral however patient not seen yet by Dr. Lindsay. Also we consulted Dr. Jha oncology to rule out any recurrence of malignancy with the underlying history of colorectal cancer and colostomy. They did not see him yet. On the physical exam: blood pressure 137/64 his heart is regular sinus rhythm he is afebrile and blood pressure control. Patient denied any chest pain or abdominal pain. And will start to ambulate. Head was normocephalic and atraumatic, pupil equal reactive, able to eat and swallow. Neck was supple no JVD no thyromegaly no lymphadenopathy. Chest clear to auscultation percussion Heart was regular sinus rhythm with the history of stents multiple. He is alrea dy has been on anticoagulation. Patient also on heparin subcu for DVT prophylaxis. The abdomen is soft positive bowel sounds no tenderness in the 4 quadrants and extremities no edema and positive pulses and however it is decreased bilateral. Neurologically stable no lateralizing sign. Assessment: #1 patient underwent procedure by Dr. Wesley with the placement of left ureter stent and adjusting on the right ureter. With the normal urination at this time. #2 no abdominal pain is resolved and able to eat. Plan: We'll ambulate the patient has tolerated. Request clearance from neurology Dr. Wesley. Requesting the consult with Dr. Kapoor and Dr. Blackmon. Possible discharge tomorrow with the resuming his anticoagulation. Objective - Vital Signs Vital signs: Vital Signs Temp 97.6 F 01/09/19 13:50 Pulse 69 01/09/19 13:50 Resp 16 01/09/19 16:00 BP 137/64 01/09/19 16:01 Pulse Ox 94 L 01/09/19 13:50 Intake & Output 01/08/19 01/09/19 01/09/19 18:59 06:59 18:59 Intake Total 859 Output Total 600 650 Balance -600 209 Weight 74.843 kg Intake: IV 509 Oral 350 Output: Urine 600 650 Estimated Blood Loss 0 Other: Voiding Method Urinal Toilet Urinal # Voids 2 1 - Labs CBC & Chem 7: 01/09/19 07:40 01/08/19 11:55 Labs: Abnormal Lab Results - Last 24 Hours (Table) 01/09/19 Range/Units 07:40 RBC 3.89 L (4.30-5.90) m/uL Hgb 12.1 L (13.0-17.5) gm/dL Hct 35.3 L (39.0-53.0) %
--- NOTE | 2019-01-09 18:16 | P.CONS ---
History of Present Illness - Reason for Consult Consult date: 01/09/19 Hydronephrosis. Abdominal pain. History of colorectal cancer - History of Present Illness The patient is an 83-year-old gentleman, with a past medical history positive for rectal cancer. The patient is a poor historian, but states that his cancer was diagnosed many years ago, in the late according to him. He was treated with chemotherapy and radiation and also had surgery. He has a permanent ostomy as a result. The patient has a known history of right-sided hydronephrosis, due to posttreatment scarring and fibrosis. He has had a stent placed chronically that requires changing yearly. The patient came into the hospital this time, complaining of lower abdominal pain, which is described as cramping, localized to the right lower quadrant and mid abdomen. Maximal severity was about 8/10. He could not identify any aggravating or relieving factors for me. He denied any nausea or vomiting, blood in the ostomy, or any discharge from the rectal stump CT of the abdomen and pelvis showed evidence of right-sided hydronephrosis, as well as possible mild left-sided hydronephrosis. There was a soft tissue noted in the retro vesical area, in the region of the prior surgery, felt to represent posttreatment scarring, the recurrence could not be ruled out. Consult was therefore placed for further evaluation and recommendations Review of Systems Constitutional: Reports fatigue Eyes: denies blurred vision, denies pain Ears: deny: decreased hearing, ear discharge, earache, tinnitus Ears, nose, mouth and throat: Denies headache, Denies sore throat Cardiovascular: Denies chest pain, Denies shortness of breath Respiratory: Denies cough Gastrointestinal: Reports as per HPI, Reports abdominal pain, Reports nausea Genitourinary: Reports as per HPI Musculoskeletal: Denies myalgias Integumentary: Denies pruritus, Denies rash Neurological: Reports weakness, Denies numbness Psychiatric: Reports difficulty concentrating, Reports memory loss Endocrine: Reports fatigue Hematologic/Lymphatic: Reports as per HPI Past Medical History Past Medical History: Coronary Artery Disease (CAD), Cancer, Chest Pain / Angina, Hyperlipidemia, Hypertension, Myocardial Infarction (AR), Osteoarthritis (OA), Renal Disease, Skin Disorder, Vascular Disorder Additional Past Medical History / Comment(s): 1998 Colon/rectal cancer- colectomy/colostomy/chemo,radiation, psoriasis, kidney stones, fx. neck & back/concussion from a fall years ago, 2006 pneumonia with bacteremia, diverticular dx.hospitalized in november at [facility] Last Myocardial Infarction Date:: 08/11/16 History of Any Multi-Drug Resistant Organisms: None Reported Past Surgical History: Appendectomy, Bladder Surgery, Bowel Resection, Chol ecystectomy, Heart Catheterization With Stent, Orthopedic Surgery Additional Past Surgical History / Comment(s): Sep 2016 Cardiac stents x2,09/11/16 PTCA with stent to PDA branch of the RCA. Other surgical hx: 08/11/16 CARDIAC STENT. LEFT/RIGHT CATARACT, COLON RESECTION WITH COLOSTOMY, colonoscopies, bilateral iliac STENTs. R Carotid angioplasty, vertebral stent, right shoulder surg for small cracked bone, cystoscopies, lithotripsy, right ureteral stent, lumbar spurs removed, cervical fusion, feeding tube post cervical sx, laparotomy with extensive lysis of adhesions. Past Anesthesia/Blood Transfusion Reactions: No Reported Reaction Additional Past Anesthesia/Blood Transfusion Reaction / Comm: no hx blood bledsoe sfusions Date of Last Stent Placement:: 09/11/16 Past Psychological History: No Psychological Hx Reported Smoking Status: Former smoker Past Alcohol Use History: None Reported Past Drug Use History: None Reported - Past Family History Father Additional Family Medical History / Comment(s): AGE 90 HEART Mother Family Medical History: Myocardial Infarction (AR) Additional Family Medical History / Comment(s): AT AGE 60 MASSIVE AR Medications and Allergies Home Medications Medication Instructions Recorded Confirmed Type Atorvastatin [Lipitor] 80 mg PO HS tab 04/10/17 01/08/19 Rx Multivitamins, Thera [Multivitamin 1 tab PO DAILY 07/16/17 01/08/19 History (formulary)] amLODIPine [Norvasc] 10 mg PO DAILY 07/16/17 01/08/19 History Aspirin 325 mg PO HS 12/24/17 01/08/19 History Pantoprazole [Protonix] 40 mg PO DAILY #60 tablet. 12/27/17 01/08/19 Rx Lisinopril 30 mg PO DAILY 01/08/19 01/08/19 History Allergies Allergy/AdvReac Type Severity Reaction Status Date / Time zolpidem tartrate Allergy Severe Rash/Hives Verified 01/08/19 13:13 [From Ambien] lorazepam [From Ativan] Allergy Unknown Verified 01/08/19 13:13 Penicillins Allergy Unknown Verified 01/08/19 13:13 Physical Exam Vitals: Vital Signs Temp Pulse Resp BP BP BP BP 01/09/19 16:01 137/64 01/09/19 16:00 16 01/09/19 15:55 133/61 01/09/19 14:50 137/64 01/09/19 14:35 152/69 01/09/19 14:20 178/60 01/09/19 14:05 154/69 01/09/19 13:50 97.6 F 69 16 158/70 01/09/19 13:30 66 16 152/69 01/09/19 13:16 67 16 160/70 01/09/19 13:01 74 16 165/74 01/09/19 12:47 97.8 F 87 16 171/77 01/09/19 10:50 97.6 F 51 L 18 187/77 01/09/19 08:00 97.6 F 51 L 18 151/72 01/08/19 23:52 98.3 F 58 L 15 103/49 01/08/19 21:59 166/81 176/74 180/79 01/08/19 21:50 68 16 01/08/19 20:05 98.3 F 68 16 174/81 Pulse Ox 01/09/19 16:01 01/09/19 16:00 01/09/19 15:55 01/09/19 14:50 01/09/19 14:35 01/09/19 14:20 01/09/19 14:05 01/09/19 13:50 94 L 01/09/19 13:30 94 L 01/09/19 13:16 99 01/09/19 13:01 99 01/09/19 12:47 98 01/09/19 10:50 95 01/09/19 08:00 93 L 01/08/19 23:52 96 01/08/19 21:59 01/08/19 21:50 01/08/19 20:05 95 Intake and Output 01/09/19 01/09/19 01/09/19 06:59 14:59 22:59 Intake Total 709 150 Output Total 650 Balance 59 150 Intake: IV 509 Oral 200 150 Output: Urine 650 Estimated Blood Loss 0 Other: Voiding Method Urinal Urinal Toilet Urinal # Voids 2 1 - Constitutional General appearance: no acute distress - EENT Eyes: EOMI, PERRLA ENT: hearing grossly normal, normal oropharynx - Neck Neck: no lymphadenopathy Thyroid: bilateral: normal size - Respiratory Respiratory: bilateral: CTA - Cardiovascular Rhythm: regular Heart sounds: normal: S1, S2 - Gastrointestinal General gastrointestinal: normal bowel sounds, soft - Integumentary Integumentary: normal - Neurologic Neurologic: CNII-XII intact - Musculoskeletal Musculoskeletal: generalized weakness, strength equal bilaterally - Psychiatric Recall diminished Psychiatric: A&O x's 3 Results CBC & Chem 7: 01/09/19 07:40 01/08/19 11:55 Labs: Abnormal Lab Results - Last 24 Hours (Table) 01/09/19 Range/Units 07:40 RBC 3.89 L (4.30-5.90) m/uL Hgb 12.1 L (13.0-17.5) gm/dL Hct 35.3 L (39.0-53.0) % Comments: The reports of cystoscopy and retrograde pyelogram reviewed Chest x-ray: report reviewed CT scan - pelvis: report reviewed US - abdomen: report reviewed Assessment and Plan Plan: #1. Rectal cancer - no records of his prior cancer available. History is obtained from the patient was somewhat poor historian. However he states that this occurrence was quite remote, actually 1998. He was treated as described. He has not had a repeat colonoscopy for several years now. The recurrence of his previous cancer after such a time labs would be extremely unlikely. A new primary in the rectal remnant can occur, but the patient has no symptoms suggestive of the same. The soft tissue noted posterior to the bladder, is commonly seen in patients with a history of treated rectal cancer, due to postoperative / postradiation scarring. There are no previous studies to compare, which can determine if there has been progression. There was some concern due to the hydronephrosis. However the right-sided hydronephrosis is quite chronic as noted. Retrograde pyelogram On the left did not show any evidence of obstruction. The set this time, there is no definite evidence of recurrence. I will order a CEA. If CEA is normal, a PET scan and be considered as an outpatient, but pretest probability of a positive finding would actually be overall quite low. GI is seeing the patient, and endoscopic evaluation of the rectal stump can be considered. #2. Pancreatic lesion - there is a questionable subcentimeter lesion in the uncinate process. This is overall quite nonspecific. Agree with GI plan for MRCP or EUS. #3. Defer to urology for management of his chronic right hydronephrosis. He is status post stent change. #4. Defer to the admitting service for management of his other medical problems
[2019-01-09] MEDS: ASPIRIN 325 MG TAB PO SCH (20:56)
[2019-01-09] MEDS: ATORVASTATIN 80 MG TAB PO SCH (20:56)
[2019-01-10 05:30] VITALS: PULSE 51; RESP 16; TEMP 98.1
[2019-01-10 07:45] LABS: Basophils # (A) 0.1 k/uL (0-0.2); Basophils % (A) 1 %; Eosinophils # (A) 0.1 k/uL (0-0.7); Eosinophils % (A) 2 %; HGB 12.5 gm/dL (13.0-17.5); Lymphocytes % (A) 29 %; MCH 30.2 pg (25.0-35.0); MCHC 32.8 g/dL (31.0-37.0); MCV 91.8 fL (80.0-100.0); Mean Platelet Volume 8.9; Monocytes # (A) 0.4 k/uL (0-1.0); Monocytes % (A) 6 %; Neutrophils % (A) 59 %; Platelet Count 183 k/uL (150-450); RBC 4.14 m/uL (4.30-5.90); RDW 14.3 % (11.5-15.5); WBC 6.8 k/uL (3.8-10.6)
[2019-01-10 08:05] LABS: Calcium 9.1 mg/dL (8.4-10.2); Potassium 4.6 mmol/L (3.5-5.1)
[2019-01-10] MEDS: amLODIPine 10 MG TAB PO SCH (09:21)
[2019-01-10] MEDS: MULTIVITAMINS, THERA 1 EACH TAB PO SCH (09:21)
[2019-01-10] MEDS: PANTOPRAZOLE 40 MG TABLET PO SCH (09:21)
[2019-01-10] MEDS: LISINOPRIL 10 MG TAB PO SCH (09:21)
[2019-01-10] MEDS: HEPARIN SODIUM,PORCINE 5,000 UNIT/ML 1 ML VIAL SQ SCH (09:21)
[2019-01-10 11:44] VITALS: BP 165/68
--- NOTE | 2019-01-10 12:14 | P.DS ---
Providers Date of admission: 01/08/19 15:49 Expected date of discharge: 01/10/19 (Cleared for discharge by the consulting physician) Attending physician: Akash Stark Consults: 01/08/19 14:42 Consult Physician Stat Consulting Provider: Ledy Jimenez Consult Reason/Comments: Pancreatic duct dilation Do you want consulting provider notified?: Yes 01/08/19 14:43 Consult Physician Urgent Consulting Provider: Alexandre Biswas Consult Reason/Comments: Hydronephrosis, history of stent placement Do you want consulting provider notified?: Yes Consult Physician Urgent Consulting Provider: Bairon Jha Consult Reason/Comments: History colon Cancer, colon mass at the anastomosis site Do you want consulting provider notified?: Yes 01/08/19 15:48 Consult Physician Urgent Consulting Provider: Kristine Keating Consult Reason/Comments: hydroureter Do you want consulting provider notified?: Yes 01/08/19 17:45 Consult Physician Routine Consulting Provider: Michele Lindsay Consult Reason/Comments: PERIPHERAL VASCULAR DISEASE Do you want consulting provider notified?: Yes Primary care physician: Akash Stark This is a discharge summary by Dr. Yordan MD,FACP Final diagnosis: #1 severe abdominal pain. #2 bilateral hydronephrosis with the stenting bilateral by Dr. Hampton. Urologist. #3 severe atherosclerosis with the underlying coronary artery disease with past history of SD. #4 history of stenting in the vertebral artery and femorals by Dr. Blackmon , and he will follow him as outpatient. #5 underlying abnormalities in the uncinate process of the pancreas and subsequent follow-up as outpatient by Dr. Jacob barrios gastroenterology as outpatient. #6 follow-up with Dr. Jha oncology with the questionable in regard of recurrence CEA has been ordered however does result is not available. #7 hypertension with hypertensive heart disease. #8 hyperlipidemia. ER presentation: Abdominal pain severe wake him up at 2 AM on the date of admission. Computed tomography scan of the abdomen with contrast was done in the ER, with multiple finding and presence of hydroureter hydronephrosis bilateral and stent on the right ureter only with then you hydronephrosis on the left new. Patient subsequently admitted to the hospital with several consultation due to the effect of abdominal pain and questionable recurrent of colorectal cancer. Patient had left colostomy with the previous history of rectal cancer. Hospital course: Patient taken to the operative room by Dr. Alexandre dukes the urologist and underwent the procedure with the cystoscopy as well as placement of the left ureteral stent however the right has been adjusted. And today cleared by Dr. Bueno for discharge. Patient seen by the gastroenterology for the ERCP versus MRCP and in relation to pancreas abnormalities by the computed tomography scan and he will follow as outpatient. Patient seen by Dr. Jha oncology he will follow him as outpatient. Patient seen by Dr. Clarke cardiology for Dr. Blackmon and patient will be following as outpatient with Dr. Blackmon as well. Patient stable general condition he wants to go home as well and he feeling great no abdominal pain no chest pain. Exam on discharge: Conscious alert oriented 3 Vital signs stable with temperature 98.1 heart rate is 51 his respiratory rate 16, blood pressure and average 165/68 however earlier was blood pressure 92/46 probably was wrong measurement. And patient will resume his medication at home apparently he did not mention that he was taken PreserVision at home and he will be continuing the same medication. HEENT negative neck was supple. Chest was clear to auscultation percussion, heart was regular sinus rhythm, no pacemaker. He had a stenting of the heart in the past by Dr. Blackmon. Abdomen soft positive bowel sounds no organ enlargement. Extremities no edema positive pulses. Left colostomy. Neurologically stable no lateralizing sign ambulatory. Assessment and plan: And follow-up with Dr. Stark. Stable general condition for discharge home today Patient will be followed with the other internet consultant as mentioned above. And if he has any further needs or or question he can contact Dr.el Martinez in the temporary absence of Dr. Stark. Patient Condition at Discharge: Fair Plan - Discharge Summary Discharge Rx Participant: No New Discharge Prescriptions: Continue Atorvastatin [Lipitor] 80 mg PO HS tab amLODIPine [Norvasc] 10 mg PO DAILY Multivitamins, Thera [Multivitamin (formulary)] 1 tab PO DAILY Aspirin 325 mg PO HS Pantoprazole [Protonix] 40 mg PO DAILY #60 tablet. Lisinopril 30 mg PO DAILY Discharge Medication List Atorvastatin [Lipitor] 80 mg PO HS tab 04/10/17 [Rx] Multivitamins, Thera [Multivitamin (formulary)] 1 tab PO DAILY 07/16/17 [History] amLODIPine [Norvasc] 10 mg PO DAILY 07/16/17 [History] Aspirin 325 mg PO HS 12/24/17 [History] Pantoprazole [Protonix] 40 mg PO DAILY #60 tablet. 12/27/17 [Rx] Lisinopril 30 mg PO DAILY 01/08/19 [History] Follow up Appointment(s)/Referral(s): Akash Stark MD [Primary Care Provider] - 1-2 days
--- NOTE | 2019-01-10 15:25 | CONS ---
CONSULTATION Mr. 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 He had the right ureteral stent placed in the past. He came in with the abdominal discomfort, was evaluated by Dr. Wesley and he subsequently had right atrial stent change. He has been followed by Dr. Lindsay on a regular basis and has a known history of severe peripheral vascular disease. He has underwent cardiac catheterization in March 2017 and underwent stenting of the first obtuse marginal branch. He has evidence of intermittent claudication and has been treated medically. He denies any chest pain. His breathing has been stable. He denies any dizziness or palpitation. His left ventricular systolic function in the past has been preserved. He has no PND. No orthopnea and he has no significant peripheral edema. His coronary factors are remarkable for history of hypertension and hyperlipidemia. MEDICATIONS: His medications at home include aspirin, Lipitor, amlodipine 10 mg daily, and Protonix. REVIEW OF SYSTEMS: RESPIRATORY SYSTEM: He has no recent wheezing. No cough. GI SYSTEM: No recent GI bleeding. No peptic ulcer disease. SYSTEM: He has the ureteral stent and the abdominal discomfort. NERVOUS SYSTEM: No stroke or seizure. PHYSICAL EXAMINATION: He is an 83-year-old male, alert, oriented, in no apparent distress. Blood pressure running in the 130s to 150s with a heart rate in the 70s. HEAD: Normocephalic. Eyes sclerae anicteric. NECK: Good upstroke. No bruit. No jugular venous distention. LUNGS: Clear to auscultation. HEART: Regular rhythm S1, S2. No S3 with a systolic murmur heard at the base. No diastolic murmur. No rub. ABDOMEN: Soft, nontender. Positive bowel sounds. No organomegaly. EXTREMITIES: No edema. Decreased distal pulses. LAB DATA: Lab data revealed hemoglobin 12.5, BUN and creatinine 17 and 1.02. IMPRESSION: 1. Abdominal discomfort related to occlusion of his right ureteral stent with replacement of his stent. 2. History of coronary artery disease, stable with no evidence of recurrent angina pectoris. 3. History of peripheral vascular disease, stable. 4. Prior history of rectal cancer. 5. Hypertension. 6. Hyperlipidemia. RECOMMENDATION: From the cardiac standpoint, he is stable. He should be able to be discharged home today and followed as an outpatient with Dr. Lindsay. He has already an appointment to see him in [place]. Thank you for this consult. We will follow with you. JOSE / STEFF: [id number] /
== END 2019-01-10 13:00 | disposition home or self-care (01) | DRG 660 ==
LOC: EC 11:22 → 3NMEDONC 15:49 → 3SCARD 18:00 → 3NMEDONC 01-09 13:26
PROVIDERS: ADMIT Internal Medicine; ATTEND Internal Medicine
PROC: 0T768DZ Dilation of Right Ureter with Intraluminal Device, Via Natural or Artificial Opening Endoscopic (ICD-10-PCS; principal; 2019-01-09 08:20)
PROC: BT1F1ZZ Fluoroscopy of Left Kidney, Ureter and Bladder using Low Osmolar Contrast (ICD-10-PCS; 2019-01-09 08:20)
DX: N13.1 Hydronephrosis with ureteral stricture, not elsewhere classified (principal); C19 Malignant neoplasm of rectosigmoid junction; K86.89 Other specified diseases of pancreas; I25.10 Atherosclerotic heart disease of native coronary artery without angina pectoris; I10 Essential (primary) hypertension; E78.5 Hyperlipidemia, unspecified; M19.90 Unspecified osteoarthritis, unspecified site; N28.9 Disorder of kidney and ureter, unspecified; K57.90 Diverticulosis of intestine, part unspecified, without perforation or abscess without bleeding; I95.1 Orthostatic hypotension; I70.219 Atherosclerosis of native arteries of extremities with intermittent claudication, unspecified extremity; I25.2 Old myocardial infarction; Z79.82 Long term (current) use of aspirin; Z79.899 Other long term (current) drug therapy; Z85.048 Personal history of other malignant neoplasm of rectum, rectosigmoid junction, and anus; Z90.49 Acquired absence of other specified parts of digestive tract; Z93.3 Colostomy status; Z92.21 Personal history of antineoplastic chemotherapy; Z87.01 Personal history of pneumonia (recurrent); Z95.5 Presence of coronary angioplasty implant and graft; Z87.891 Personal history of nicotine dependence; Z87.442 Personal history of urinary calculi; Z98.42 Cataract extraction status, left eye; Z98.41 Cataract extraction status, right eye; Z92.3 Personal history of irradiation; Z88.0 Allergy status to penicillin; Z88.8 Allergy status to other drugs, medicaments and biological substances; Z82.49 Family history of ischemic heart disease and other diseases of the circulatory system
CPT/HCPCS: 36415; 71046; 74177; 74420; 80048; 80053; 81001; 82150; 82378; 83605; 83615; 83690; 85025; 85027; 85610; 85730; 96374; 96375; 99285

== ENCOUNTER → 2019-01-22 | Outpatient (CLI) | payer MEDICARE, OTHER ==
--- NOTE | 2019-01-22 14:17 | XR ---
EXAMINATION TYPE: XR KUB DATE OF EXAM: 01/22/2019 COMPARISON: 10/18/2014 HISTORY: Pain TECHNIQUE: One view abdominal series FINDINGS: There is a double-J ureteral stent. Loop of the distal portion the stent does not appear to be deform ed entirely. May be at the level the UVJ or proximal bladder correlate clinically. Bilateral vascular stents are seen and there is an ostomy with postsurgical changes in the involving the abdomen. Arthropathy of the hips. Degenerative and hypertrophic change of the spine. Kidneys: No suspicious calcifications. IMPRESSION: 1. Right-sided ureteral stent as discussed above. Distal margin of the stent should be correlated for positioning.
== END | disposition home or self-care (01) ==
LOC: RADXRMAIN 11:22
PROVIDERS: ATTEND Urology
DX: N13.5 Crossing vessel and stricture of ureter without hydronephrosis (principal); Z96.0 Presence of urogenital implants
CPT/HCPCS: 74018

== ENCOUNTER 2019-05-31 01:39 | Inpatient (IN) | payer MEDICARE, OTHER ==
[2019-05-31] MEDS ORDERED: SODIUM CHLORIDE 0.9% 1,000 ML IV STA (01:59)
[2019-05-31] MEDS ORDERED: MORPHINE SULFATE 4 MG/ML SYRINGE IV STA (01:59)
[2019-05-31] MEDS ORDERED: ONDANSETRON ODT 4 MG TAB PO STA (01:59)
[2019-05-31 02:24] LABS: Basophils # (A) 0.1 k/uL (0-0.2); Basophils % (A) 1 %; Eosinophils # (A) 0.2 k/uL (0-0.7); Eosinophils % (A) 2 %; HCT 41.1 % (39.0-53.0); HGB 13.7 gm/dL (13.0-17.5); Lymphocytes # (A) 2.3 k/uL (1.0-4.8); Lymphocytes % (A) 20 %; MCH 29.9 pg (25.0-35.0); MCHC 33.3 g/dL (31.0-37.0); MCV 89.8 fL (80.0-100.0); Mean Platelet Volume 8.6; Monocytes # (A) 0.5 k/uL (0-1.0); Monocytes % (A) 5 %; Neutrophils # (A) 8.2 k/uL (1.3-7.7); Neutrophils % (A) 71 %; Platelet Count 223 k/uL (150-450); RBC 4.58 m/uL (4.30-5.90); RDW 14.9 % (11.5-15.5); WBC 11.6 k/uL (3.8-10.6)
[2019-05-31 02:40] LABS: ALT 35 U/L (21-72); AST 24 U/L (17-59); African American GFR (CKD) 71 (>60 ml/min/1.73 sqM); Albumin 3.7 g/dL (3.5-5.0); Alkaline Phosphatase 78 U/L (38-126); Anion Gap 5 mmol/L; Blood Urea Nitrogen 30 mg/dL (9-20); C Reactive Protein <5.0 mg/L (<10.0); Calcium 9.3 mg/dL (8.4-10.2); Carbon Dioxide 25 mmol/L (22-30); Chloride 104 mmol/L (98-107); Glucose 99 mg/dL (74-99); Sodium 134 mmol/L (137-145); Total Bilirubin 0.3 mg/dL (0.2-1.3); Total Protein 6.7 g/dL (6.3-8.2)
--- NOTE | 2019-05-31 02:50 | ED ---
Back Pain HPI - General Chief Complaint: Back Pain/Injury Stated Complaint: Back Pain Time Seen by Provider: 05/31/19 01:59 Source: patient, family Limitations: no limitations - History of Present Illness Initial Comments: Derrick is a pleasant 83-year-old gentleman who presents to the emergency Department today with his family for evaluation of back pain. Patient states that his pain began approximately Saturday. Initially his pain respond to Tylenol, Motrin and topical creams such as Aspercreme. Patient reports throughout the week his pain is become progressively worse. Pain is bilateral, tightness, with radiation down both thighs. He describes the sensation his thi ghs is similar to trial he forces which come and go. Patient cannot identify any exacerbating or relieving factors, patient does state that he has not had a bowel movement today however he has an ostomy and does occasionally have constipation so he took a stool softener today. He denies any hematuria or change in ladder habits, he does have a history kidney stones but reports this pain is not similar. Patient denies any recent injury or falls that would've precipitated this back pain. Patient states he previously suffered from chronic back pain but is been back pain-free for a long period of time. - Related Data Home Medications Medication Instructions Recorded Confirmed Multivitamins, Thera [Multivitamin 1 tab PO DAILY 07/16/17 01/08/19 (formulary)] amLODIPine [Norvasc] 10 mg PO DAILY 07/16/17 01/08/19 Aspirin 325 mg PO HS 12/24/17 01/08/19 Lisinopril 30 mg PO DAILY 01/08/19 01/08/19 Previous Rx's Medication Instructions Recorded Atorvastatin [Lipitor] 80 mg PO HS tab 04/10/17 Pantoprazole [Protonix] 40 mg PO DAILY #60 tablet. 12/27/17 Allergies Allergy/AdvReac Type Severity Reaction Status Date / Time zolpidem tartrate Allergy Severe Rash/Hives Verified 05/31/19 01:45 [From Ambien] lorazepam [From Ativan] Allergy Unknown Verified 05/31/19 01:45 Penicillins Allergy Unknown Verified 05/31/19 01:45 Review of Systems ROS Statement: Those systems with pertinent positive or pertinent negative responses have been documented in the HPI. ROS Other: All systems not noted in ROS Statement are negative. 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 neck & back/concussion from a fall years ago, 2006 pneumonia with bacteremia, diverticular dx.hospitalized in november at [facility] Last Myocardial Infarction Date:: 08/11/16 History of Any Multi-Drug Resistant Organisms: None Reported Past Surgical History: Appendectomy, Bladder Surgery, Bowel Resection, Cholecystectomy, Heart Catheterization With Stent, Orthopedic Surgery Additional Past Surgical History / Comment(s): Sep 2016 Cardiac stents x2,09/11/16 PTCA with stent to PDA branch of the RCA. Other surgical hx: 08/11/16 CARDIAC STENT. LEFT/RIGHT CATARACT, COLON RESECTION WITH COLOSTOMY, colonoscopies, bilateral iliac STENTs. R Carotid angioplasty, vertebral stent, right shoulder surg for small cracked bone, cystoscopies, lithotripsy, right ureteral stent, lumbar spurs removed, cervical fusion, feeding tube post cervical sx, laparotomy with extensive lysis of adhesions. Past Anesthesia/Blood Transfusion Reactions: No Reported Reaction Additional Past Anesthesia/Blood Transfusion Reaction / Comment(s): no hx blood transfusions Date of Last Stent Placement:: 09/11/16 Past Psychological History: No Psychological Hx Reported Smoking Status: Former smoker Past Alcohol Use History: None Reported Past Drug Use History: None Reported - Past Family History Father Additional Family Medical History / Comment(s): AGE 90 HEART Mother Family Medical History: Myocardial Infarction ([place]) Additional Family Medical History / Comment(s): AT AGE 60 MASSIVE [place] General Exam - General Exam Comments Initial Comments: Physical Exam GENERAL: Elderly gentleman, appears uncomfortable HENT: Normocephalic, Atraumatic. EYES: PERRL, EOMI PULMONARY: Unlabored respirations. No audible rales rhonchi or wheezing was noted. CARDIOVASCULAR: There is a regular rate and rhythm without any murmurs gallops or rubs. Warm and well perfused extremities, palpable DP and PT pulses strong and equal ABDOMEN: Soft and nontender with normal bowel sounds. Multiple surgical changes, ostomy present in left lower quadrant No palpable masses No pulsatile mass SKIN: Skin is clear with no lesions or rashes and otherwise unremarkable. : Deferred NEUROLOGIC: Patient is alert and oriented x3. Moving all extremities spontaneously MUSCULOSKELETAL: Normal extremities with adequate strength and full range of motion. No lower extremity swelling or edema. No calf tenderness. PSYCHIATRIC: Normal psychiatric evaluation. Limitations: no limitations Course Vital Signs 05/31/19 05/31/19 05/31/19 01:40 02:56 05:14 Temperature 97.5 F L Pulse Rate 61 60 64 Respiratory 20 18 18 Rate Blood Pressure 186/74 161/57 144/71 O2 Sat by Pulse 99 100 96 Oximetry 05/31/19 06:24 Temperature 98.1 F Pulse Rate 67 Respiratory 19 Rate Blood Pressure 117/55 O2 Sat by Pulse 97 Oximetry Medical Decision Making - Medical Decision Making The patient was seen and evaluated, history is obtained from patient and children at bedside This is very uncomfortable appearing 83-year-old gentleman suffering from for 5 days of back pain that seemed to be good without provocation, initially responde d to NSAIDs but tonight the patient cannot get comfortable Labs, imaging and morphine were ordered Labs are relatively unremarkable, imaging reveals a small very early small bowel obstruction however I suspect this is the patient's baseline. CT of the lumbar spine is unremarkable. Patient reports he is pain-free while laying in bed after receiving morphine, upon walking patient reports moderate pain and became nauseated. At this time we'll plan to patient patient in observation for pain management. Patient care was discussed with his primary care physician Dr. Farr who agrees with plan with a consult to spinal surgery Dr. Olivera. - Lab Data Result diagrams: 05/31/19 02:20 05/31/19 02:20 Lab Results 05/31/19 05/31/19 Range/Units 02:20 02:20 WBC 11.6 H (3.8-10.6) k/uL RBC 4.58 (4.30-5.90) m/uL Hgb 13.7 (13.0-17.5) gm/dL Hct 41.1 (39.0-53.0) % MCV 89.8 (80.0-100.0) fL MCH 29.9 (25.0-35.0) pg MCHC 33.3 (31.0-37.0) g/dL RDW 14.9 (11.5-15.5) % Plt Count 223 (150-450) k/uL Neutrophils % 71 % Lymphocytes % 20 % Monocytes % 5 % Eosinophils % 2 % Basophils % 1 % Neutrophils # 8.2 H (1.3-7.7) k/uL Lymphocytes # 2.3 (1.0-4.8) k/uL Monocytes # 0.5 (0-1.0) k/uL Eosinophils # 0.2 (0-0.7) k/uL Basophils # 0.1 (0-0.2) k/uL Sodium 134 L (137-145) mmol/L Potassium 5.0 (3.5-5.1) mmol/L Chloride 104 (98-107) mmol/L Carbon Dioxide 25 (22-30) mmol/L Anion Gap 5 mmol/L BUN 30 H (9-20) mg/dL Creatinine 1.11 (0.66-1.25) mg/dL Est GFR (CKD-EPI)AfAm 71 (>60 ml/min/1.73 sqM) Est GFR (CKD-EPI)NonAf 61 (>60 ml/min/1.73 sqM) Glucose 99 (74-99) mg/dL Calcium 9.3 (8.4-10.2) mg/dL Total Bilirubin 0.3 (0.2-1.3) mg/dL AST 24 (17-59) U/L ALT 35 (21-72) U/L Alkaline Phosphatase 78 (38-126) U/L C-Reactive Protein <5.0 (<10.0) mg/L Total Protein 6.7 (6.3-8.2) g/dL Albumin 3.7 (3.5-5.0) g/dL Disposition Clinical Impression: Mechanical back pain, Acquired ureteral stricture, Abdominal pain Disposition: ADMITTED IP TO THIS [facility] Condition: Stable Instructions (If sedation given, give patient instructions): Acute Low Back Pain (ED) Referrals: Glenn Farr MD [Primary Care Provider] - 1-2 days
--- NOTE | 2019-05-31 03:30 | CT ---
EXAM: CT Lumbar Spine With Intravenous Contrast CLINICAL HISTORY: ITS.REASON CT Reason: pain TECHNIQUE: Axial computed tomography images of the lumbar spine with intravenous contrast. CTDI is 17 mGy and DLP is 1046 mGy-cm. This CT exam was performed using one or more of the following dose reduction techniques: automated exposure control, adjustment of the mA and/or kV according to patient size, and/or use of iterative reconstruction technique. COMPARISON: 01/08/19 CT abdomen FINDINGS: Postsurgical changes: L3-4 laminectomy. Vertebral elements: Normal vertebral body height and alignment. Diffuse osteopenia. Discs: Severe disc height loss at L5-S1. Vacuum phenomenon without disc height loss at L4-L5. Spinal canal: No significant spinal canal stenosis. Soft tissues: Right ureteral stent is in place. The right ureter is severely dilated. IMPRESSION: 1. No acute fracture. 2. Dilated right ureter with underlying ureteral stent in place.
--- NOTE | 2019-05-31 03:40 | CT ---
EXAM: CT Abdomen and Pelvis With Intravenous Contrast CLINICAL HISTORY: ITS.REASON CT Reason: pain, no ostomy output TECHNIQUE: Axial computed tomography images of the abdomen and pelvis with intravenous contrast. CTDI is 22 mGy and DLP is 737 mGy-cm. This CT exam was performed using one or more of the following dose reduction techniques: automated exposure control, adjustment of the mA and/or kV according to patient size, and/or use of iterative reconstruction technique. COMPARISON: 01/08/19 CT abdomen FINDINGS: Lung bases: No mass. No consolidation. ABDOMEN: Liver: Unremarkable. Gallbladder and bile ducts: Removed. Pancreas: Prominent pancreatic duct measuring 3-4 mm. Spleen: Unremarkable. Adrenals: Unremarkable. Kidneys and ureters: Dilated right ureter with underlying ureteral stent not significantly changed. The right renal pelvis has decreased in size measuring 7 cm, previously 10 cm. Right ureteral stent is in place terminating just past the UVJ. Stomach and bowel: No bowel wall thickening. Copious amounts of stool throughout the colon. The distal small bowel appears mildly dilated. PELVIS: Appendix: No evidence of appendicitis. Bladder: Unremarkable. Reproductive: Unremarkable. ABDOMEN and PELVIS: Intraperitoneal space: Unremarkable. Bones/joints: No acute fractures. Soft tissues: Left-sided ostomy. Vasculature: No abdominal aortic aneurysm. Lymph nodes: No enlarged lymph nodes. IMPRESSION: 1. Mildly dilated distal small bowel, possibly representing developing small bowel obstruction. 2. Persistently dilated right collecting system, improved from prior but still severely dilated overall. Right ureteral stent is in place terminating just past the UVJ. Right ureteral stent is in place terminating just past the UVJ. 3. prominent pancreatic duct measuring up to 3-4 mm, nonspecific. Consider ERCP/MRCP non-emergently.
[2019-05-31] MEDS ORDERED: NALOXONE 0.4 MG/ML 1 ML VIAL IV PRN (06:24)
[2019-05-31] MEDS ORDERED: MORPHINE SULFATE 4 MG/ML SYRINGE IV PRN (06:24)
[2019-05-31 06:58] LABS: Appearance,Urine Clear (Clear); Bilirubin,Urine Negative (Negative); Blood,Urine Negative (Negative); Color,Urine Yellow; Glucose,Urine (UA) Negative (Negative); Ketones,Urine Negative (Negative); Leukocyte Esterase,Urine Negative (Negative); Nitrite,Urine Negative (Negative); PH, Urine 6.5 (5.0-8.0); Protein,Urine Negative (Negative); Specific Gravity,Urine 1.025 (1.001-1.035); Urobilinogen,Urine <2.0 mg/dL (<2.0)
[2019-05-31 10:23] VITALS: BMI 23.6
--- NOTE | 2019-05-31 12:18 | P.CNOR ---
History of Present Illness - HPI Consult date: 05/31/19 History of present illness: This is an 83-year-old male who is admitted for back pain and small bowel obstruction. Patient states that a few days ago he developed lower back pain and had difficulty ambulating. Patient denies any known injury or cause of this pain. Patient states that he has not had back pain like this before. Patient localizes the pain to the right side of the lower back. Patient denies any radiation of the pain and he denies any numbness, weakness, tingling, change in bowel or bladder function or saddle anesthesia. Patient states that she has been able to ambulate to the bathroom and back, but this is very painful. Patient denies any history of back surgery, but medical record states history of cervical fusion. Patient's past medical history significant for coronary artery disease, colorectal cancer, hyperlipidemia, hypertension, history of myocardial infarction, osteoarthritis, and history of kidney stones. Review of Systems See HPI. 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 neck & back/concussion from a fall years ago, 2006 pneumonia with bacteremia, diverticular dx.hospitalized in november at [facility] Last Myocardial Infarction Date:: 08/11/16 History of Any Multi-Drug Resistant Organisms: None Reported Past Surgical History: Appendectomy, Bladder Surgery, Bowel Resection, Cholecystectomy, Heart Catheterization With Stent, Orthopedic Surgery Additional Past Surgical History / Comment(s): Sep 2016 Cardiac stents x2,09/11/16 PTCA with stent to PDA branch of the RCA. Other surgical hx: 08/11/16 CARDIAC STENT. LEFT/RIGHT CATARACT, COLON RESECTION WITH COLOSTOMY, colonoscopies, bilateral iliac STENTs. R Carotid angioplasty, vertebral stent, right shoulder surg for small cracked bone, cystoscopies, lithotripsy, right ureteral stent, lumbar spurs removed, cervical fusion, feeding tube post cervical sx, laparotomy with extensive lysis of adhesions. Past Anesthesia/Blood Transfusion Reactions: No Reported Reaction Additional Past Anesthesia/Blood Transfusion Reaction / Comm: no hx blood transfusions Date of Last Stent Placement:: 09/11/16 Past Psychological History: No Psychological Hx Reported Additional Psychological History / Comment(s): Pt resides with his spouse in a single story home that has 2 porch steps. He is independent.no home care services. has a bp machine at home. 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 Smoking Status: Former smoker Past Alcohol Use History: None Reported Additional Past Alcohol Use History / Comment(s): STARTED SMOKING AT AGE 18- SMOKED 1 PPD, QUIT about 1969. Past Drug Use History: None Reported - Past Family History Father Additional Family Medical History / Comment(s): AGE 90 HEART Mother Family Medical History: Myocardial Infarction ([place]) Additional Family Medical History / Comment(s): AT AGE 60 MASSIVE [place] Medications and Allergies Home Medications Medication Instructions Recorded Confirmed Type Atorvastatin [Lipitor] 80 mg PO HS tab 04/10/17 05/31/19 Rx Multivitamins, Thera [Multivitamin 1 tab PO DAILY 07/16/17 05/31/19 History (formulary)] amLODIPine [Norvasc] 10 mg PO DAILY 07/16/17 05/31/19 History Aspirin 325 mg PO HS 12/24/17 05/31/19 History Pantoprazole [Protonix] 40 mg PO DAILY #60 tablet. 12/27/17 05/31/19 Rx Lisinopril 30 mg PO DAILY 01/08/19 05/31/19 History EPINEPHrine (Auto Inject) [Epipen] 0.3 mg IM ONCE PRN 05/31/19 05/31/19 History Triamcinolone 0.1% Cream [Kenalog 1 applicatio TOPICAL BID 05/31/19 05/31/19 History 0.1% Cream] Allergies Allergy/AdvReac Type Severity Reaction Status Date / Time zolpidem tartrate Allergy Severe Rash/Hives Verified 05/31/19 07:17 [From Ambien] bee venom protein (honey bee) Allergy Anaphylaxis Verified 05/31/19 07:21 lorazepam [From Ativan] Allergy Unknown Verified 05/31/19 07:17 Penicillins Allergy Unknown Verified 05/31/19 07:17 Physical Examination On exam patient is resting comfortably in bed lying on his back. Patient is in no acute distress and is alert and oriented 3. There is mild tenderness to palpation over the right side lower back. There is no step-off or deformity. There is no swelling, edema, rash or ecchymosis. There is no tenderness to palpation over the cervical, thoracic or lumbar midline. Patient does have pain when actively rolling onto his side and with active range of motion of bilateral lower extremities. Patient has full range of motion of bilateral lower extremities. Patient has no pain with logroll of bilateral lower extremities. Patient has 5/5 strength of bilateral lower extremities. EHL intact bilaterally. Sensation intact. Neurovascular status and circulatory status are intact. Results A CT of the lumbar spine shows no acute fracture and dilated right ureter with underlying ureteral stent in place. A CT of the abdomen and pelvis with contrast shows: 1. Mildly dilated distal small bowel, possibly representing developing small bowel obstruction. 2. Persistently dilated right collecting system, improved from prior but still severely dilated and overall. Right ureteral stent is in place term a just past the UVJ. 3. Prominent pancreatic duct measuring up to 3-4 mm, nonspecific. Consider ERCP/MRCP not emergently. - Labs Labs: Abnormal Lab Results - Last 24 Hours (Table) 05/31/19 05/31/19 Range/Units 02:20 02:20 WBC 11.6 H (3.8-10.6) k/uL Neutrophils # 8.2 H (1.3-7.7) k/uL Sodium 134 L (137-145) mmol/L BUN 30 H (9-20) mg/dL H & H 05/31/19 Range/Units 02:20 Hgb 13.7 (13.0-17.5) gm/dL Hct 41.1 (39.0-53.0) % Result Diagrams: 05/31/19 02:20 05/31/19 02:20 Assessment and Plan (1) Lower back pain Current Visit: Yes Status: Acute Code(s): M54.5 - LOW BACK PAIN SNOMED Code(s): 773482591 Plan: 1. CT of the lumbar spine is negative for any acute process. 2. Continue pain control. 3. No surgical intervention planned at this time. Will continue to follow.
[2019-05-31] MEDS: LISINOPRIL 10 MG TAB PO SCH (12:56)
[2019-05-31] MEDS: amLODIPine 10 MG TAB PO SCH (12:56)
[2019-05-31] MEDS: PANTOPRAZOLE 40 MG TABLET PO SCH (12:57)
[2019-05-31] MEDS: MULTIVITAMINS, THERA 1 EACH TAB PO SCH (12:57)
[2019-05-31] MEDS: ENOXAPARIN 40 MG/0.4 ML SYRINGE SQ SCH (12:57)
[2019-05-31] MEDS: POLYETHYLENE GLYCOL 3350 17 GM POWD.PACK PO SCH (13:27)
[2019-05-31] MEDS: traMADol 50 MG TAB PO SCH ×3 (13:27→22:15)
[2019-05-31] MEDS: SENNOSIDES-DOCUSATE SODIUM 1 EACH TAB PO SCH ×2 (13:28→22:15)
[2019-05-31] MEDS: ONDANSETRON 4 MG/2 ML VIAL IVP PRN (13:41)
--- NOTE | 2019-05-31 13:50 | P.HPIM ---
History of Present Illness H&P Date: 05/31/19 (Right flank pain, history of stenting of the ureter, mild leukocytosis.) Dictation on the date of service 05/31/[address] Yordan M.D. [facility] Patient never seen before, is a patient of Dr. Stark who retired, and I am covering him. 80 years old white male presented to the hospital by his in the car complaining of back pain and the pain started on Saturday initially he is some Tylenol, Motrin, topical cream as aspirin cream however the pain is progressive. He thought that the pain from his back, and he has previous history of surgery with laminectomy and there is a scar midline on the back. He thought also that his pain goes to the thighs and also could not walk even with a walker or could not stand up. Patient could not identify any exacerbation or relieving factors. Patient has not have a bowel movement in the colostomy bag for the loss 2 days with consideration of constipation., No history of change of the urine habit he does have history of kidney stones and he had stent placed by Dr. 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 Medication: Multivitamin tablet once a day Norvasc amlodipine 10 mg daily for hypertension Lisinopril 30 mg daily for hypertension. Aspirin 325 mg daily with the history of underlying stent in the past of the heart with coronary heart disease. He is also on atorvastatin 80 mg daily at bedtime, Pantoprazole 40 mg daily. ALLERGIES: To Ambien/0 BTM tartrate severe ALLERGY. #2 lorazepam/Ativan unknown. #3 penicillin unknown Past medical history: Coronary artery disease, colon cancer followed by surgery and colostomy with the colorectal me on 1998: And direct, chemo and radiation at the time. Kidney stones, history of concussion and back surgery from fall in 2006. History of pneumonia and bacteremia and diverticular disease and was hospitalized in November and his [facility]. Last myocardial infarction dated 08/11/2016, no history of drug resistance. Surgical history bladder surgery, bilateral resection for cancer, cholecystectomy, cardiac catheterization with stent, orthopedic surgeon for his back with the fall. September 2016 he had 2 cardiac stent, 09/11/2016 he had PTCA with a stent to the PDA branch of right coronary artery, 08/11/2016 cardiac stent. Cataract surgery bilateral iliac stent with the underlying peripheral vascular disease Right carotid angioplasty, vertebral stent, right shoulder surgery for corrective the bone. Cystoscopies and lithotripsy for the stones, right ureteral stent, lumbar spares removed, cervical fusion, laparotomy with extensive lysis of adhesions. Former smoker No alcohol reported or drug abuse Family history father age of 90 with a heart disease. Mother of [place] at the age of 60 with massive heart attack. Review of system: Neuropsychiatry patient happier forgetting, I don't know his baseline, PA for almost his for any memory to be obtained for all the above information which is obtained from the questioning in the emergency room. Cardiovascular no chest pain and no palpitation and no chest pressure. Pulmonary: Normal breath sounds no complained of shortness of breath. GI complained of no BM in the colostomy bag for the last 2 days however there is no abdominal pain or distention or nausea or vomiting. no dysuria or hematuria. Musculoskeletal severe pain in the right flank area required morphine to help control able to to move. During the dictation patient complaining of nausea and was starting him on Zofran 4 mg every 4-6 hour when necessary. Hematopoietic, no anemia however he had mild leukocytosis. Musculoskeletal severe pain in the right flank prevented him from ambulating. Mainly associated with the stent obstruction and hydronephrosis which is progressively worsening. Physical exam: Vital sign at the time of the exam temperature 98.8 F oral, pulse rate 67 bpm regular, respiratory rate 16/m nonlabored, his blood pressure is fluctuating however he did not receive any medication this morning and the blood pressure 16 3/75 with a blood pressure 104. His pulse ox on room air 97%. Head was normocephalic and atraumatic, pupil was equal reactive, oropharynx normal natural teeth able to eat and swallow. No fascial asymmetry. Neck was supple no JVD no thyromegaly no lymphadenopathy trachea midline. The chest: There is the percussion on the back was negative tenderness on the spine and there is scar from laminectomy on the lumbosacral area. His lung is clear to auscultation and percussion no wheezes no rhonchi's. Percussion on the back severe tenderness on the right flank. Severely painful even with deep touch Heart: Regular sinus rhythm no arrhythmias no symptoms. Abdomen: He had left colostomy was empty back with a history of and no BM. For the last 2 days. Extremities: History of peripheral vascular disease, no edema, pulses intact. Neurologically: Stable however we will discussed with his in regard of the cognitive function impairment0 Assessment: Severe right flank pain with the underlying history of stenting of the ureter and nephrolithiasis with the possible pressure and hydronephrosis. #2 severe pain causing also nausea and vomiting however patient did not vomit yet but he is nauseated. #3 hypertension with hypertensive heart disease. #4 history of coronary artery disease with a stent. #5 history of peripheral vascular disease. With the questionable femoral distended, #6 patient is new to me and we don't have any old record. #7 hypertension of stools. #8 early small bowel obstruction considered. The recommendation and plan #1 patient had a computed tomography scan of the abdomen results indicating, lung basis no consolidation, abdomen liver unremarkable, gallbladder removed, Prominent pancreatic duct measuring to 3-4 mm, spleen unremarkable, adrenal unremarkable, the kidney and ureter dilated right kidney with the underlying ureteral stent, right renal pelvis has decreased in size measuring 7 cm previously what 10 cm Right ureteral stent in place in GE junction. There is copious amount of stool throughout the colon, distal small bowel appearing mildly dilated. Persistently dilated the right collecting system, right ureteral stent, prominent pancreatic duct measuring Patient will be only on full liquid diet, start medication for pain control, and adjusted the IV fluid. Repeat lab in a.m. Consultation with urology for evaluation of the physical finding with the pain in the right flank area associated with the staff. Starting him on Levaquin IV piggyback 500 mg once a day with the history of severe ALLERGY to penicillin. Past Medical History Past Medical History: Coronary Artery Disease (CAD), Cancer, Chest Pain / Angina, Hyperlipidemia, Hypertension, Myocardial Infarction ([place]), Osteoarthritis (OA), Renal Disease, Skin Disorder, Vascular Disorder Additional Past Medical History / Comment(s): 1998 Colon/rectal cancer- colectomy/colostomy/chemo,radiation, psoriasis, kidney stones, fx. neck & back/concussion from a fall years ago, 2006 pneumonia with bacteremia, diverticular dx.hospitalized in november at [facility] Last Myocardial Infarction Date:: 08/11/16 History of Any Multi-Drug Resistant Organisms: None Reported Past Surgical History: Appendectomy, Bladder Surgery, Bowel Resection, Cholecystectomy, Heart Catheterization With Stent, Orthopedic Surgery Additional Past Surgical History / Comment(s): Sep 2016 Cardiac stents x2,09/11/16 PTCA with stent to PDA branch of the RCA. Other surgical hx: 08/11/16 CARDIAC STENT. LEFT/RIGHT CATARACT, COLON RESECTION WITH COLOSTOMY, colonoscopies, bilateral iliac STENTs. R Carotid angioplasty, vertebral stent, right shoulder surg for small cracked bone, cystoscopies, lithotripsy, right ureteral stent, lumbar spurs removed, cervical fusion, feeding tube post cervical sx, laparotomy with extensive lysis of adhesions. Past Anesthesia/Blood Transfusion Reactions: No Reported Reaction Additional Past Anesthesia/Blood Transfusion Reaction / Comment(s): no hx blood transfusions Date of Last Stent Placement:: 09/11/16 Past Psychological History: No Psychological Hx Reported Additional Psychological History / Comment(s): Pt resides with his spouse in a single story home that has 2 porch steps. He is independent.no home care services. has a bp machine at home. 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 Smoking Status: Former smoker Past Alcohol Use History: None Reported Additional Past Alcohol Use History / Comment(s): STARTED SMOKING AT AGE 18- SMOKED 1 PPD, QUIT about 1969. Past Drug Use History: None Reported - Past Family History Father Additional Family Medical History / Comment(s): AGE 90 HEART Mother Family Medical History: Myocardial Infarction ([place]) Additional Family Medical History / Comment(s): AT AGE 60 MASSIVE [place] Medications and Allergies Home Medications Medication Instructions Recorded Confirmed Type Atorvastatin [Lipitor] 80 mg PO HS tab 04/10/17 05/31/19 Rx Multivitamins, Thera [Multivitamin 1 tab PO DAILY 07/16/17 05/31/19 History (formulary)] amLODIPine [Norvasc] 10 mg PO DAILY 07/16/17 05/31/19 History Aspirin 325 mg PO HS 12/24/17 05/31/19 History Pantoprazole [Protonix] 40 mg PO DAILY #60 tablet. 12/27/17 05/31/19 Rx Lisinopril 30 mg PO DAILY 01/08/19 05/31/19 History EPINEPHrine (Auto Inject) [Epipen] 0.3 mg IM ONCE PRN 05/31/19 05/31/19 History Triamcinolone 0.1% Cream [Kenalog 1 applicatio TOPICAL BID 05/31/19 05/31/19 Hi story 0.1% Cream] Allergies Allergy/AdvReac Type Severity Reaction Status Date / Time zolpidem tartrate Allergy Severe Rash/Hives Verified 05/31/19 07:17 [From Ambien] bee venom protein (honey bee) Allergy Anaphylaxis Verified 05/31/19 07:21 lorazepam [From Ativan] Allergy Unknown Verified 05/31/19 07:17 Penicillins Allergy Unknown Verified 05/31/19 07:17 Physical Exam Vitals: Vital Signs Temp Pulse Pulse Resp BP BP Pulse Ox 05/31/19 08:00 67 16 05/31/19 07:38 98.8 F 67 16 163/75 97 05/31/19 06:24 98.1 F 67 19 117/55 97 05/31/19 05:14 64 18 144/71 96 05/31/19 02:56 60 18 161/57 100 05/31/19 01:40 97.5 F L 61 20 186/74 99 Intake and Output 05/30/19 05/31/19 05/31/19 22:59 06:59 14:59 Intake Total 480 Balance 480 Intake: Oral 480 Other: Weight 72.575 kg Results CBC & Chem 7: 05/31/19 02:20 05/31/19 02:20 Labs: Abnormal Lab Results - Last 24 Hours (Table) 05/31/19 05/31/19 Range/Units 02:20 02:20 WBC 11.6 H (3.8-10.6) k/uL Neutrophils # 8.2 H (1.3-7.7) k/uL Sodium 134 L (137-145) mmol/L BUN 30 H (9-20) mg/dL Thrombosis Risk Factor Assmnt - Choose All That Apply Any of the Below Risk Factors Present?: No Each Risk Factor Represents 3 Points: Age 75 years or older Thrombosis Risk Factor Assessment Total Risk Factor Score: 3 Thrombosis Risk Factor Assessment Level: Moderate Risk
--- NOTE | 2019-05-31 14:42 | US ---
EXAMINATION TYPE: US kidneys/renal and bladder DATE OF EXAM: 05/31/2019 COMPARISON: CT abdomen and pelvis earlier today. CLINICAL HISTORY: Renal stent, hydronephrosis, severe pain right side. Patient stated has ureteral st ent(s). EXAM MEASUREMENTS: Right Kidney: 12.2 x 8.3 x 7.7 cm Left Kidney: 11.4 x 6.6 x 5.7 cm Post Void Residual Volume: not assessed on inpatient Right Kidney: severe hydronephrosis; ureteral stent noted in renal pelvis/ureter Left Kidney: no hydronephrosis or masses seen Bladder: distended with hyperechoic parallel ureteral stent is noted within bladder Bilateral Jets seen: no Persistent severe right-sided hydronephrosis despite right double-J ureter stent which correlates wit h CT. Distal stent confirmed within the bladder on ultrasound which correlates with CT. No left-sided hydronephrosis IMPRESSION: Findings correlate with CT, severe right-sided hydronephrosis remains present despite suc cessful position of the stent.
[2019-05-31] MEDS: LEVOFLOXACIN 500MG-D5W PMX 500 MG in DEXTROSE/WATER 1 100ML.BAG IVPB SCH (14:58)
[2019-05-31] MEDS: SODIUM CHLORIDE 0.9% 1,000 ML IV SCH (14:58)
[2019-05-31] MEDS ORDERED: LEVOFLOXACIN 750MG-D5W PMX 500 MG in DEXTROSE/WATER 1 150ML.BAG IVPB SCH (15:00)
[2019-05-31] MEDS: ASPIRIN 325 MG TAB PO SCH (22:15)
[2019-05-31] MEDS: ATORVASTATIN 80 MG TAB PO SCH (22:15)
[2019-06-01] MEDS: SODIUM CHLORIDE 0.9% 1,000 ML IV SCH ×2 (05:51→08:42)
[2019-06-01 07:27] LABS: Basophils % (A) 1 %; Eosinophils # (A) 0.1 k/uL (0-0.7); Eosinophils % (A) 2 %; HCT 36.6 % (39.0-53.0); HGB 12.2 gm/dL (13.0-17.5); Lymphocytes # (A) 1.4 k/uL (1.0-4.8); Lymphocytes % (A) 18 %; MCH 30.2 pg (25.0-35.0); MCHC 33.2 g/dL (31.0-37.0); MCV 90.8 fL (80.0-100.0); Monocytes # (A) 0.6 k/uL (0-1.0); Monocytes % (A) 7 %; Neutrophils # (A) 5.7 k/uL (1.3-7.7); Neutrophils % (A) 71 %; Platelet Count 173 k/uL (150-450); RBC 4.03 m/uL (4.30-5.90); RDW 13.3 % (11.5-15.5); WBC 8.1 k/uL (3.8-10.6)
[2019-06-01 07:30] LABS: African American GFR (CKD) >90 (>60 ml/min/1.73 sqM); Anion Gap 6 mmol/L; Blood Urea Nitrogen 18 mg/dL (9-20); Calcium 8.9 mg/dL (8.4-10.2); Carbon Dioxide 27 mmol/L (22-30); Chloride 103 mmol/L (98-107); Glucose 95 mg/dL (74-99); Potassium 4.6 mmol/L (3.5-5.1); Sodium 136 mmol/L (137-145)
--- NOTE | 2019-06-01 08:27 | P.PN ---
Progress Note - Text Progress Note Date: 06/01/19 Patient is a very pleasant 83-year-old male who is seen and examined at the bedside for follow-up evaluation in regards to his low back pain. Patient states when he initially resented to the emergency department on 05/31/2019 he felt his symptoms were related to back pain. At the bedside this morning he states he no longer feels that his back pain. He has pain at the right far lateral lumbar spine in the flank area. He is also experiencing abdominal pain. He states he does have a history of previous ureter stenting. He also has a history of colon cancer with a colostomy placed in 1998. He states he has daily bowel movements. He has not had a bowel movement over the past 3 days. He is currently on a clear liquid diet. He denies any lower extremity weakness or radiculopathy. He states he feels nauseous at the bedside today. He does have a history of previous surgical intervention with laminectomy performed at his lumbar spine. Physical exam: Patient is awake, alert, and oriented 3 Vital signs stable Good chest excursion with deep inspiration and expiration Examination of lumbar spine reveals skin is intact with no abrasions, lacerations, or bruises; no erythema, purulence or signs of infection Evidence of a well-healed incision along the midline of the lumbar spine No pain with palpation along the midline of the lumbar spine Significant pain with light palpation over the right flank area Dorsiflexion, plantarflexion, and extensor hallucis longus positive sustained bilaterally Lower extremity strength 5/5 bilaterally No signs or symptoms of DVT; no calf pain Neurovascularly intact Pertinent studies: CT lumbar spine taken on 05/31/2019: Right ureteral stent in place; severe right ureter dilation; No evidence of acute fracture lumbar spine; L4-5 vacuum disc phenomenon; L5-S1 severe degenerative disc disease; no evidence of significant spinal canal stenosis; evidence of postoperative changes with laminectomy at L3- 4 and L4-5 CT the abdomen and pelvis taken on 05/31/2019: Mildly dilated distal small bowel possibly representing developing small bowel obstruction; persistently dilated right collecting system severely dilated overall with evidence of right ureteral stent placement; prominent pancreatic duct which is nonspecific Assessment: Severe dilatation of the right ureter Right-sided flank pain Abdominal pain and nausea Possible developing small bowel instruction History of previous right ureteral stent placement History of colon cancer with colostomy History of previous lumbar laminectomy L5-S1 severe degenerative disc disease Plan: 1. After physical examination the patient, further discussion with the patient, and reviewing the imaging, we will plan to continue conservative treatment in regards to his lumbar spine. His symptoms do not specifically appear to be stemming from his lumbar spine. Imaging shows evidence of a severely dilated right ureter. Patient is experiencing significant right-sided flank pain. He is not experiencing any significant low back pain. He denies any lower extremity weakness or radiculopathy bilaterally. He is experiencing abdominal pain and nausea as well with imaging showing possible developing small bowel obstruction. Patient does have a history of colon cancer with colostomy in place. He admits to daily bowel movements. At this time we will plan for the patient to continue to be seen and examined by medicine. Consultation has also been placed with urology. At this time we'll plan to sign off on the patient. We are not planning for any surgical intervention regards to his lumbar spine. Patient is cleared for discharge from an orthopedic spine standpoint. We will plan to have him follow up in outpatient setting on an as-needed basis. If he is an exacerbation of back pain following discharge, he may call the office at follow-up appointment. He may follow-up with Oz Camara PA-C or Dr. Rito Olivera at [facility].
[2019-06-01] MEDS: POLYETHYLENE GLYCOL 3350 17 GM POWD.PACK PO SCH (08:39)
[2019-06-01] MEDS: LISINOPRIL 10 MG TAB PO SCH (08:40)
[2019-06-01] MEDS: amLODIPine 10 MG TAB PO SCH (08:41)
[2019-06-01] MEDS: MULTIVITAMINS, THERA 1 EACH TAB PO SCH (08:41)
[2019-06-01] MEDS: ONDANSETRON 4 MG/2 ML VIAL IVP PRN ×3 (08:41→20:23)
[2019-06-01] MEDS: traMADol 50 MG TAB PO SCH ×4 (08:41→22:10)
[2019-06-01] MEDS: SENNOSIDES-DOCUSATE SODIUM 1 EACH TAB PO SCH ×2 (08:41→22:10)
[2019-06-01] MEDS: PANTOPRAZOLE 40 MG TABLET PO SCH (08:41)
[2019-06-01] MEDS: ENOXAPARIN 40 MG/0.4 ML SYRINGE SQ SCH (08:42)
--- NOTE | 2019-06-01 09:26 | P.GSCN ---
History of Present Illness Consult date: 06/01/19 Reason for Consult: Right hydronephrosis History of present illness: The patient is an 83-year-old male admitted through the emergency room on 05/31 for evaluation of abdominal and back pain. The patient says that his pain began the previous evening and was located in the low back on both sides. He apparently also had some pain which radiated into his thighs. The pain was severe and he was taken to the emergency room for evaluation. Computed tomography scan of the lumbosacral spine was obtained but showed no acute injury. There was evidence of right hydronephrosis and for that reason a computed tomography scan of the abdomen and pelvis with IV contrast was obtained. This showed moderate right hydroureteronephrosis which actually had improved compared with a previous computed tomography scan from 12/2018. A double-J catheter was noted to be present in the right ureter and appeared to be in correct position. There was some dilation of the distal small bowel suggestive of an early small bowel obstruction. Dr. Biswas was asked to see the patient due to the hydronephrosis and I am seeing him in his absence. The patient has a history of severe right hydroureteronephrosis which was discovered in 2012 and has been palliated by placement of a right double-J catheter. The cause of the obstruction is felt to be scarring in the pelvis related to previous colon surgery and radiation therapy. The double-J catheter had been changed yearly through 09/2018. The patient was hospitalized in December of this year and there appeared to be a worsening in the right hydronephrosis. Dr. Biswas change the catheter on 01/08/2019. The patient's creatinine was 0.97 on 01/08, 1.02 on 01/10 and 0.87 this morning. The patient has had no gross hematuria. He usually voids every 3-4 hours during the day and has no nocturia. At the present time the patient's main complaint is nausea. He says that he is had virtually no output of stool from his colostomy since prior to being admitted. Review of Systems - Constitutional Reports anorexia, Denies chills, Denies fever - Cardiovascular Denies edema, Denies shortness of breath - Respiratory Denies pain on inspiration - Gastrointestinal Reports as per HPI, Denies vomiting - Genitourinary Reports as per HPI Past Medical History Past Medical History: Coronary Artery Disease (CAD), Cancer, Chest Pain / Angina, Hyperlipidemia, Hypertension, Myocardial Infarction (MS), Osteoarthritis (OA), Renal Disease, Skin Disorder, Vascular Disorder Additional Past Medical History / Comment(s): 1998 Colon/rectal cancer- colectomy/colostomy/chemo,radiation, psoriasis, kidney stones, fx. neck & back/concussion from a fall years ago, 2006 pneumonia with bacteremia, diverticular dx.hospitalized in november at [facility] Last Myocardial Infarction Date:: 08/11/16 History of Any Multi-Drug Resistant Organisms: None Reported Past Surgical History: Appendectomy, Bladder Surgery, Bowel Resection, Cho lecystectomy, Heart Catheterization With Stent, Orthopedic Surgery Additional Past Surgical History / Comment(s): Sep 2016 Cardiac stents x2,09/11/16 PTCA with stent to PDA branch of the RCA. Other surgical hx: 08/11/16 CARDIAC STENT. LEFT/RIGHT CATARACT, COLON RESECTION WITH COLOSTOMY, colonoscopies, bilateral iliac STENTs. R Carotid angioplasty, vertebral stent, right shoulder surg for small cracked bone, cystoscopies, lithotripsy, right ureteral stent, lumbar spurs removed, cervical fusion, feeding tube post cervical sx, laparotomy with extensive lysis of adhesions. Past Anesthesia/Blood Transfusion Reactions: No Reported Reaction Additional Past Anesthesia/Blood Transfusion Reaction / Comm: no hx blood tra nsfusions Date of Last Stent Placement:: 09/11/16 Past Psychological History: No Psychological Hx Reported Additional Psychological History / Comment(s): Pt resides with his spouse in a single story home that has 2 porch steps. He is independent.no home care services. has a bp machine at home. 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 Smoking Status: Former smoker Past Alcohol Use History: None Reported Additional Past Alcohol Use History / Comment(s): STARTED SMOKING AT AGE 18- SMOKED 1 PPD, QUIT about 1970. Past Drug Use History: None Reported - Past Family History Father Additional Family Medical History / Comment(s): AGE 90 HEART Mother Family Medical History: Myocardial Infarction (MS) Additional Family Medical History / Comment(s): AT AGE 60 MASSIVE MS Medications and Allergies Home Medications Medication Instructions Recorded Confirmed Type Atorvastatin [Lipitor] 80 mg PO HS tab 04/10/17 05/31/19 Rx Multivitamins, Thera [Multivitamin 1 tab PO DAILY 07/16/17 05/31/19 History (formulary)] amLODIPine [Norvasc] 10 mg PO DAILY 07/16/17 05/31/19 History Aspirin 325 mg PO HS 12/24/17 05/31/19 History Pantoprazole [Protonix] 40 mg PO DAILY #60 tablet. 12/27/17 05/31/19 Rx Lisinopril 30 mg PO DAILY 01/08/19 05/31/19 History EPINEPHrine (Auto Inject) [Epipen] 0.3 mg IM ONCE PRN 05/31/19 05/31/19 History Triamcinolone 0.1% Cream [Kenalog 1 applicatio TOPICAL BID 05/31/19 05/31/19 History 0.1% Cream] Allergies Allergy/AdvReac Type Severity Reaction Status Date / Time zolpidem tartrate Allergy Severe Rash/Hives Verified 05/31/19 07:17 [From Ambien] bee venom protein (honey bee) Allergy Anaphylaxis Verified 05/31/19 07:21 lorazepam [From Ativan] Allergy Unknown Verified 05/31/19 07:17 Penicillins Allergy Unknown Verified 05/31/19 07:17 Surgical - Exam Vital Signs Temp Pulse Resp BP Pulse Ox 97.5 F L 61 20 186/74 99 05/31/19 01:40 05/31/19 01:40 05/31/19 01:40 05/31/19 01:40 05/31/19 01:40 - General well developed, well nourished, moderate distress - ENT no hearing loss - Neck no masses, no lymphadectomy - Respiratory normal respiratory effort - Abdomen Abdomen: no organomegaly, no rebound, no distended Hernia: none - Genitourinary normal penis with no external lesions, testicles non-tender Results - Labs 06/01/19 06:36 06/01/19 06:36 Abnormal Lab Results - Last 24 Hours (Table) 06/01/19 06/01/19 Range/Units 06:36 06:36 RBC 4.03 L (4.30-5.90) m/uL Hgb 12.2 L (13.0-17.5) gm/dL Hct 36.6 L (39.0-53.0) % Sodium 136 L (137-145) mmol/L Diabetes panel 06/01/19 Range/Units 06:36 Sodium 136 L (137-145) mmol/L Potassium 4.6 (3.5-5.1) mmol/L Chloride 103 (98-107) mmol/L Carbon Dioxide 27 (22-30) mmol/L BUN 18 (9-20) mg/dL Creatinine 0.87 (0.66-1.25) mg/dL Glucose 95 (74-99) mg/dL Calcium 8.9 (8.4-10.2) mg/dL Calcium panel 06/01/19 Range/Units 06:36 Calcium 8.9 (8.4-10.2) mg/dL Pituitary panel 06/01/19 Range/Units 06:36 Sodium 136 L (137-145) mmol/L Potassium 4.6 (3.5-5.1) mmol/L Chloride 103 (98-107) mmol/L Carbon Dioxide 27 (22-30) mmol/L BUN 18 (9-20) mg/dL Creatinine 0.87 (0.66-1.25) mg/dL Glucose 95 (74-99) mg/dL Calcium 8.9 (8.4-10.2) mg/dL Adrenal panel 06/01/19 Range/Units 06:36 Sodium 136 L (137-145) mmol/L Potassium 4.6 (3.5-5.1) mmol/L Chloride 103 (98-107) mmol/L Carbon Dioxide 27 (22-30) mmol/L BUN 18 (9-20) mg/dL Creatinine 0.87 (0.66-1.25) mg/dL Glucose 95 (74-99) mg/dL Calcium 8.9 (8.4-10.2) mg/dL - Imaging CT scan - abdomen: image reviewed (The right double-J catheter appears to be correctly positioned. There is residual right hydroureteronephrosis which is improved from a previous computed tomography scan in 12/2018) Assessment and Plan (1) Hydronephrosis, right Narrative/Plan: The patient has chronic right hydronephrosis secondary to extrinsic compression of the right ureter presumably related to previous colon surgery and radiation therapy performed prior to 2012. The patient's renal function is at his baseline and the computed tomography scan shows improvement in the degree of hydronephrosis compared with 12/2018. The character of the patient's pain and the small bowel dilation as well as lack of passage of stool through the colostomy suggests a possible small bowel obstruction as the cause of his pain. Current Visit: No Status: Acute Code(s): N13.30 - UNSPECIFIED HYDRONEPHROSIS SNOMED Code(s): 46615585 Plan: At this time I do not feel that exchange of the right double-J catheter is necessary. Patient had a routine follow-up with scheduled tomorrow and I will notify him that the patient is in the hospital.
[2019-06-01] MEDS: LEVOFLOXACIN 500MG-D5W PMX 500 MG in DEXTROSE/WATER 1 100ML.BAG IVPB SCH (15:14)
--- NOTE | 2019-06-01 17:47 | PN ---
PROGRESS NOTE DATE OF SERVICE: 06/01/2019 DATA: The patient is an 83-year-old white male, . Height 5 feet 9 inches, weight 72.575 kg, BSA 1.88 m2, BMI 23.6 kg/m2. ALLERGIES: 1. ZOLPIDEM TARTRATE. 2. BEE VENOM PROTEIN (HONEY BEE). 3. LORAZEPAM. 4. PENICILLIN. The patient currently is awake, alert. He still has not had any bowel movement in the colostomy bag. He has underlying small bowel obstruction. He had underlying presence of pain, treated with Ultram, and to avoid more constipation with morphine. Meanwhile he had liquid in the bag, but currently stool is not present. The patient has been monitored. Ultrasound of the kidney indicated severe hydronephrosis on the right side done on 05/31/2019. The result showed persistent severe right-sided hydronephrosis despite right double-J ureteral stent. Distal stent confirmed within the bladder on the ultrasound. No left-sided hydronephrosis. The patient also had a CT scan of the lumbar spine indicating severe disc disease in L5-S1 and L4-L5 and no evidence of stenosis. Right ureteral stent in place. Right ureter is severely dilated, with no evidence of fracture. He presented initially to Dr. Castle, the ER physician, and she thought that he had spinal stenosis, which is not the case. No evidence of spinal stenosis. He had tenderness on the right flank area. Dr. Randle did see the patient for urological consultation. His assessment is hydronephrosis on the right. His note indicates that the patient had chronic right hydronephrosis secondary to extrinsic compression of the right ureter, presumed related to previous colon surgery and radiation therapy performed in 2012. Renal function in his baseline. CT scan indicates improvement in the degree of hydronephrosis compared with 01/02. The patient's pain and small bowel dilatation as well as lack of passage of the stools in the colostomy are suggestive of possible small bowel obstruction. He stated that he does not feel that exchange of the right double-J catheter is necessary. He had routine followup with Dr. Biswas scheduled for tomorrow. He will notify Dr. Biswas, Urology, that the patient is in the hospital. Currently the patient's BUN is 18 and creatinine 0.87, blood sugar 95. Dr. Olivera of Orthopedics has a note that was dictated by the SHAWNA, Oz Camraa, physician sound assistant, indicating that he had severe dilatation of the right ureter, right-sided flank pain, abdominal pain and nausea and developed small bowel obstruction. He has a history of previous ureteral stent placement and history of colon cancer with colostomy. He had previous lumbar laminectomy and L5-S1 severe degenerative disc disease. No surgical intervention. PHYSICAL EXAMINATION: Today the patient is conscious, alert. There is still no bowel movement. He felt nauseated this morning and they treated him with medication. VITAL SIGNS: Today on 06/01/2019 at 7 a.m. his temperature was 97.7 Fahrenheit oral, heart rate 56 beats per minute, respiratory rate 17 per minute, blood pressure 170/54. Earlier in the morning after midnight it was 142/66. His pulse ox was 95% to 96% on room air. LABORATORY DATA: Today his white count is 8.1, hemoglobin 12.2, hematocrit 36.6, platelet count 173. Sodium 136, potassium 4.6, chloride 103, carbon dioxide 27, anion gap of 6. BUN is 18, creatinine 0.87. His estimated glomerular filtration rate for non- is 80. His blood sugar is 95 and his calcium is 8.9. His procalcitonin is 0.05, which is within the normal range. The patient is conscious, alert. There is no family around. He stated that he knows that noted that Dr. Randle saw him today and there is no further procedure to be done for him by Urology. I HEAD: Normocephalic, atraumatic. Pupils equal, reactive. Patient is able to eat. However, we are on clear liquid diet because of the small bowel obstruction. CHEST: Clear to auscultation and percussion. HEART: Regular sinus rhythm. ABDOMEN: Soft, nontender. Positive bowel sounds with the left colostomy. The colostomy is still empty. We started him on MiraLAX 17 grams daily as well as Senokot-S twice a day. We will order today ambulation in the 4 times a day for further improvement and resolution of the small bowel obstruction. We will wait until tomorrow and obtain again the laboratory. Meanwhile, if there is no resolution, we will have to consult the surgeon. With the procalcitonin normal and white count normal, we will discontinue the Levaquin as well, as he had mild elevation of leukocytosis and we thought that with the inflammation and pain in the right flank area with the presence of the double-J stent and still severe hydronephrosis still present, Dr. Randle stated that he will tell Dr. Biswas, but no for further treatment. Previous urinalysis on admission was normal and his white count on admission was 11.6. EXTREMITIES: No edema. Positive pulses with history of peripheral vascular disease and currently no leukocytosis. Neurological assessment was normal. No new event. He is more awake and alert. ASSESSMENT: 1. Underlying clarification started with back pain and no evidence of acute stenosis of the spine or fracture, with the underlying history of laminectomy and discogenic disease. 2. Clarification and ruling out any right kidney pain, which is still present, with the associated severe hydronephrosis indicated by the ultrasound of the kidney, which is severe; as well as the CT scan. He was seen by Dr. Randle, the urologist. 3. Small bowel obstruction. Patient on clear liquid diet as well as MiraLAX and Senokot-S to clarify the issue. Hopefully we will ambulate him as well. If there is no response, we will be consulting the surgeon. His colostomy was done by Dr. Dockery in the past, according to the patient. Will follow up and will obtain labs tomorrow. We will discontinue the Levaquin. MMODL / IJN: [id number] /
[2019-06-01] MEDS: ASPIRIN 325 MG TAB PO SCH (22:10)
[2019-06-01] MEDS: ATORVASTATIN 80 MG TAB PO SCH (22:10)
[2019-06-02] MEDS: ONDANSETRON 4 MG/2 ML VIAL IVP PRN (02:20)
[2019-06-02] MEDS: SODIUM CHLORIDE 0.9% 1,000 ML IV SCH ×2 (07:35→22:37)
[2019-06-02] MEDS: SENNOSIDES-DOCUSATE SODIUM 1 EACH TAB PO SCH ×2 (07:56→21:17)
[2019-06-02] MEDS: PANTOPRAZOLE 40 MG TABLET PO SCH (07:56)
[2019-06-02] MEDS: traMADol 50 MG TAB PO SCH ×4 (07:56→22:38)
[2019-06-02] MEDS: LISINOPRIL 10 MG TAB PO SCH (07:56)
[2019-06-02] MEDS: ENOXAPARIN 40 MG/0.4 ML SYRINGE SQ SCH (07:56)
[2019-06-02] MEDS: POLYETHYLENE GLYCOL 3350 17 GM POWD.PACK PO SCH (07:57)
[2019-06-02] MEDS: amLODIPine 10 MG TAB PO SCH (07:57)
[2019-06-02] MEDS: MULTIVITAMINS, THERA 1 EACH TAB PO SCH (07:57)
--- NOTE | 2019-06-02 10:28 | P.PN ---
Progress Note - Text Progress Note Date: 06/02/19 Mr. Hill had a large bowel movement this morning and is feeling much better. At the time of admission, he was experiencing right lower back pain which is much improved. The computed tomography scan shows evidence of chronic right hydronephrosis, but the renal parenchyma is preserved and I have no reason to believe that the stent is malfunctioning. There has been discussion of him being discharged home today, in which case he will follow up with me in 3 months. Please notify me if I can be of any further assistance.
--- NOTE | 2019-06-02 13:00 | PN ---
PROGRESS NOTE DATE OF SERVICE: 06/02/2019 He is FULL CODE. His age is 83 years old, white male, . His date of 1935. DATA: He is 5 feet 9 inches. Height and weight 72.575 kg, BSA 1.88 meter square, BMI 23.6 kg/meter square. ALLERGY AND ADVERSE EFFECT: ZOLPIDEM TARTRATE, BEE VENOM PROTEIN, HONEY BEE, LORAZEPAM, PENICILLIN. The patient is seen today and evaluated and also seen by Dr. Biswas, the urologist, for his double-J stent on his right ureter with underlying severe hydronephrosis. He will be also following him as outpatient. The patient also stated that he is feeling much better and he started to have some movement in his colostomy bag and some liquids. However, he has no full bag. He still has gas started also, which is a sign of resolution of the underlying small-bowel obstruction. Today as examined his vital signs indicating that temperature 98.6 F oral, and his heart rate is 60, regular sinus and respiratory rate is 15 and he is nonlabored. His blood pressure 120/60 with a mean arterial pressure 80 mmHg. His oxygen saturation 98% on room air. On the laboratory, his last laboratory was 06/01 and which at that time, his white count 8.1 and hemoglobin 12.2 with the hydration and n.p.o. dropped to 1.5 gram. Otherwise platelet count is normal 173, that is on June 01, as well as his electrolytes on June 01, sodium 136, potassium 4.6, chloride 103, carbon dioxide 27, and anion gap was 6, as well as his BUN is 18 and creatinine 0.87 with the estimated glomerular filtration rate for non- is 80 and blood sugar was 95 and calcium 8.9. The patient more awake, alert, oriented. He started to walk around with the walker and nursing assessment Patient examination, the head was normocephalic, atraumatic. Able to eat and swallow. Neck was supple. No JVD. No thyromegaly. No lymphadenopathy. Trachea midline. Chest was clear to auscultation and percussion. No wheezes, no rhonchi. The heart was regular sinus rhythm. He has history of chronic atrial fibrillation in the past, but currently he is sinus rhythm and he is not on any anticoagulant. His potassium is normal and renal function is normal. The abdomen is soft. Positive bowel sounds. Currently started, the left colostomy bag starts to having air and gas and started the small bowel to work as well and started to have liquid stools. With the extremities, no edema. Positive pulses and he had history of peripheral vascular disease in the past. ASSESSMENT: Small bowel obstruction, gradually improving. PLAN: Will ambulate as well as we will continue the current treatment and advance the diet to full liquid and subsequently to a heart healthy diet and if he tolerates it without nausea and vomiting and start his bowel movements with no feeling of abdominal pain, plan will be discharging him tomorrow with the stability. We also will be obtaining tomorrow the laboratory, CBC with differential and magnesium as well as electrolytes. MMODL / IJN: [id number] /
[2019-06-02] MEDS: ASPIRIN 325 MG TAB PO SCH (21:16)
[2019-06-02] MEDS: ATORVASTATIN 80 MG TAB PO SCH (21:17)
[2019-06-03 02:00] VITALS: RESP 18
[2019-06-03 07:27] LABS: Basophils % (A) 1 %; Eosinophils # (A) 0.2 k/uL (0-0.7); Eosinophils % (A) 2 %; HCT 38.3 % (39.0-53.0); HGB 12.6 gm/dL (13.0-17.5); Lymphocytes % (A) 27 %; MCH 29.7 pg (25.0-35.0); MCHC 32.8 g/dL (31.0-37.0); MCV 90.7 fL (80.0-100.0); Mean Platelet Volume 8.1; Monocytes # (A) 0.5 k/uL (0-1.0); Monocytes % (A) 6 %; Neutrophils # (A) 4.5 k/uL (1.3-7.7); Neutrophils % (A) 61 %; Platelet Count 197 k/uL (150-450); RBC 4.22 m/uL (4.30-5.90); RDW 13.4 % (11.5-15.5); WBC 7.4 k/uL (3.8-10.6)
[2019-06-03 07:43] LABS: Calcium 9.2 mg/dL (8.4-10.2); Magnesium 1.7 mg/dL (1.6-2.3); Potassium 4.9 mmol/L (3.5-5.1)
[2019-06-03] MEDS: ENOXAPARIN 40 MG/0.4 ML SYRINGE SQ SCH (08:12)
[2019-06-03] MEDS: MULTIVITAMINS, THERA 1 EACH TAB PO SCH (08:12)
[2019-06-03] MEDS: LISINOPRIL 10 MG TAB PO SCH (08:12)
[2019-06-03] MEDS: PANTOPRAZOLE 40 MG TABLET PO SCH (08:12)
[2019-06-03] MEDS: SENNOSIDES-DOCUSATE SODIUM 1 EACH TAB PO SCH (08:12)
[2019-06-03] MEDS: amLODIPine 10 MG TAB PO SCH (08:12)
[2019-06-03] MEDS: SODIUM CHLORIDE 0.9% 1,000 ML IV SCH (08:12)
[2019-06-03] MEDS: POLYETHYLENE GLYCOL 3350 17 GM POWD.PACK PO SCH (08:12)
[2019-06-03] MEDS: traMADol 50 MG TAB PO SCH (08:13)
[2019-06-03 08:22] VITALS: BP 149/58; PULSE 68; TEMP 98.3
--- NOTE | 2019-06-03 09:27 | P.DS ---
Providers Date of admission: 05/31/19 06:26 Expected date of discharge: 06/03/19 Attending physician: Glenn Farr Consults: 05/31/19 06:25 Consult Physician Routine Consulting Provider: Luis Olivera Consult Reason/Comments: back pain Do you want consulting provider notified?: Yes 05/31/19 12:49 Consult Physician Urgent Consulting Provider: Veto Randle Consult Reason/Comments: Severe flank pain, associated with the stenting of the kidney. Do you want consulting provider notified?: Yes Primary care physician: Glenn Farr Dictation of discharge summary date of service 06/03/2019. Final diagnosis: #1 small bowel obstruction with history of abdominal adhesion in the past resolved on discharge. #2 right flank pain associated with double-J stent in the right ureter with the under lying severe hydronephrosis of the right kidney. #3 history of back surgery currently stable no back pain. #4 colostomy left sided with a history of colon cancer. #5 constipation with stool retention by the computed tomography scan of the abdomen. #6 hypertension fairly well controlled. #7 hyperlipidemia. #8 history of coronary artery disease. And history of peripheral vascular disease. #9 GERD disease. Patient presented to the emergency room with acute back pain. They thought that he may have spinal stenosis but was not the case consultation with orthopedic in the did the CAT scan of the spine and no evidence of spinal stenosis. He had double JJ stent in the right ureter for hydronephrosis of the right kidney, he had ultrasound as well as a CAT scan which indicating severe but improved. Hospital course: Patient admitted to the hospital with the consultation with the urology Dr. Hampton and Dr. Randle date indicate and this consult no for further procedure and to see the patient as outpatient. With the underlying stool retention and no BM in the colostomy bag for the last 3 days patient plays on IV fluid, with the slight elevation of the white count started him on Levaquin and subsequently his white count neutralized to normal and the Levaquin has been discontinued meanwhile patient started on MiraLAX as well stool softener which facilitate this stool to move with the underlying constipation IV continued and mild medication was given which currently patient did not need Patient started to have BM in the bag and he changed the bag and ambulate and stable general condition to go home today with his home medication with no change except to that we give them MiraLAX prescription to be used once a day and docusate sodium twice a day to be monitored until we see him in the office in 5-7 days. Patient is currently ambulatory. [id number] exam on discharge. Head was normocephalic and atraumatic pupil was equal reactive conjunctiva was pink sclera was nonicteric. Conscious alert oriented 3. And ambulatory. Chest is clear to auscultation and percussion and heart was regular sinus rhythm. The abdomen was soft positive bowel sounds and extremities no edema and he evacuates his colostomy bag twice daily and no abdominal pain and the flank pain. Right sided has been significantly improved. Assessment and plan: Patient stable general condition to be discharged home today with the current medication added to stool softener and MiraLAX to be used on when necessary basis if continue to have stool retention. Small bowel obstruction resolved. Patient Condition at Discharge: Stable Plan - Discharge Summary Discharge Rx Participant: No New Discharge Prescriptions: New Polyethylene Glycol 3350 [Miralax] 17 gm PO DAILY #30 powd.pack Sennosides-Docusate Sodium [Senokot-S] 1 each PO BID #60 tab Continue Atorvastatin [Lipitor] 80 mg PO HS tab amLODIPine [Norvasc] 10 mg PO DAILY Multivitamins, Thera [Multivitamin (formulary)] 1 tab PO DAILY Aspirin 325 mg PO HS Pantoprazole [Protonix] 40 mg PO DAILY #60 tablet. Lisinopril 30 mg PO DAILY EPINEPHrine (Auto Inject) [Epipen] 0.3 mg IM ONCE PRN PRN Reason: Anaphylaxis Triamcinolone 0.1% Cream [Kenalog 0.1% Cream] 1 applicatio TOPICAL BID Discharge Medication List Atorvastatin [Lipitor] 80 mg PO HS tab 04/10/17 [Rx] Multivitamins, Thera [Multivitamin (formulary)] 1 tab PO DAILY 07/16/17 [History] amLODIPine [Norvasc] 10 mg PO DAILY 07/16/17 [History] Aspirin 325 mg PO HS 12/24/17 [History] Pantoprazole [Protonix] 40 mg PO DAILY #60 tablet. 12/27/17 [Rx] Lisinopril 30 mg PO DAILY 01/08/19 [History] EPINEPHrine (Auto Inject) [Epipen] 0.3 mg IM ONCE PRN 05/31/19 [History] Triamcinolone 0.1% Cream [Kenalog 0.1% Cream] 1 applicatio TOPICAL BID 05/31/19 [History] Polyethylene Glycol 3350 [Miralax] 17 gm PO DAILY #30 powd.pack 06/03/19 [Rx] Sennosides-Docusate Sodium [Senokot-S] 1 each PO BID #60 tab 06/03/19 [Rx] Follow up Appointment(s)/Referral(s): Oz Camara PAC [PHYSICIAN NAIL ASSEMBLY MACHINE OPERATOR] - As Needed (Patient may follow-up with Oz Camara PA-C or Dr. Rito Olivera at [facility] on an as-needed basis following discharge. ) Glenn Farr MD [Primary Care Provider] - 1 Week Patient Instructions/Handouts: Acute Low Back Pain (ED)
== END 2019-06-03 11:39 | disposition home or self-care (01) | DRG 699 ==
LOC: EC 01:39 → 4SSUR 06:26
PROVIDERS: ADMIT Internal Medicine; ATTEND Internal Medicine
DX: N28.82 Megaloureter (principal); K56.609 Unspecified intestinal obstruction, unspecified as to partial versus complete obstruction; N13.30 Unspecified hydronephrosis; E78.5 Hyperlipidemia, unspecified; I11.9 Hypertensive heart disease without heart failure; I25.10 Atherosclerotic heart disease of native coronary artery without angina pectoris; I25.2 Old myocardial infarction; I73.9 Peripheral vascular disease, unspecified; K21.9 Gastro-esophageal reflux disease without esophagitis; M51.37 Other intervertebral disc degeneration, lumbosacral region; Z79.82 Long term (current) use of aspirin; Z79.899 Other long term (current) drug therapy; Z82.49 Family history of ischemic heart disease and other diseases of the circulatory system; Z85.048 Personal history of other malignant neoplasm of rectum, rectosigmoid junction, and anus; Z87.442 Personal history of urinary calculi; Z87.820 Personal history of traumatic brain injury; Z87.891 Personal history of nicotine dependence; Z88.0 Allergy status to penicillin; Z91.81 History of falling; Z93.3 Colostomy status; Z95.5 Presence of coronary angioplasty implant and graft; Z98.1 Arthrodesis status; Z90.49 Acquired absence of other specified parts of digestive tract; Z98.42 Cataract extraction status, left eye; Z98.41 Cataract extraction status, right eye; Z88.8 Allergy status to other drugs, medicaments and biological substances; Z91.030 Bee allergy status; Z92.3 Personal history of irradiation; Y83.8 Other surgical procedures as the cause of abnormal reaction of the patient, or of later complication, without mention of misadventure at the time of the procedure; Y84.2 Radiological procedure and radiotherapy as the cause of abnormal reaction of the patient, or of later complication, without mention of misadventure at the time of the procedure
CPT/HCPCS: 36415; 72132; 74177; 76770; 80048; 80053; 81003; 83735; 84145; 85025; 86140; 96361; 96374; 99285

== ENCOUNTER → 2019-09-22 | Outpatient (CLI) | payer MEDICARE, OTHER ==
--- NOTE | 2019-09-22 11:29 | XR ---
EXAMINATION TYPE: XR abdomen 1V DATE OF EXAM: 09/22/2019 COMPARISON: 01/22/2019 HISTORY: Kidney stones TECHNIQUE: One view abdominal series FINDINGS: The osseous structures are intact. The bowel gas pattern is nonspecific. There is a double-J uretera l stent. Distal margin this stent is stable relative the previous exam. Postsurgical changes are noted. Bilateral vascular stents. Arthropathy of the hips and vascular calci fications are seen. Ostomy is seen with postsurgical change. Hypertrophic and degenerative change of the spine. No definite suspicious calcifications. IMPRESSION: 1. Nonspecific abdomen with no obstruction. 2. Distal margin of the ureteral stent is stable from the prior exam..
== END ==
LOC: RADXRMAIN 11:02
PROVIDERS: ATTEND Urology
DX: N13.5 Crossing vessel and stricture of ureter without hydronephrosis (principal); Z96.0 Presence of urogenital implants
CPT/HCPCS: 74018

== ENCOUNTER → 2019-10-13 | Outpatient (CLI) | payer MEDICARE, OTHER ==
--- NOTE | 2019-10-13 16:01 | MR ---
EXAMINATION TYPE: MR brain wo/w con DATE OF EXAM: 10/13/2019 COMPARISON: CT brain dated 12/03/2018 HISTORY: MEMORY LOSS TECHNIQUE: Multiplanar, multisequence images of the brain and brainstem is performed without and with IV contras t, utilizing 7.5 mL intravenous Gadavist . FINDINGS: Diffusion weighted images demonstrate no evidence of a recent infarct or other diffusion ab normality. In the right posterior fossa there is slightly more pronounced CSF intensity than on the l eft surrounding the right cerebellar hemisphere. This may relate to asymmetric atrophy or benign arac hnoid cyst. Moderate burden nonspecific white matter changes seen as foci of T2/FLAIR hyperintensity in the periventricular and subcortical white matter. One of the largest foci is seen within the poste rior left frontal lobe measuring 8 x 8 mm on FLAIR axial fat-sat image 22. The ventricular system and cisternal spaces are symmetrically prominent compatible with age-related volume loss. Midline structures demonstrate normal morphology. 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 Th e craniocervical junction appears within normal limits. Post contrast images demonstrate no abnormal enhancement. The dural venous sinuses appear patent. The visualized sinuses are clear other than a s cant amount of mucosal thickening in the ethmoid sinuses and the globes are intact. There is mild lef tward nasal septal deviation. IMPRESSION: Moderate nonspecific white matter change, most typically on the basis of chronic microang iopathy and diffuse moderate cerebral and cerebellar atrophy. No acute infarct, midline shift or mass effect. No abnormal intracranial enhancement.
[2019-10-13 17:59] LABS: Folate, Serum >24.0 ng/mL
[2019-10-13 23:47] LABS: African American GFR (CKD) 80.3 (60.0-200.0); Non-African American GFR(CKD) 69.3 (60.0-200.0)
== END ==
LOC: RADMRIMAIN 09:42
PROVIDERS: ATTEND Psychiatry & Neurology Neurology
DX: G31.9 Degenerative disease of nervous system, unspecified (principal); I73.9 Peripheral vascular disease, unspecified; R90.89 Other abnormal findings on diagnostic imaging of central nervous system
CPT/HCPCS: 36415; 70553; 82565; 82607; 82746; 84439; 84443; 84450; 84460; 84481; 84520; 86618

== ENCOUNTER → 2019-11-19 | Outpatient (CLI) | payer MEDICARE, OTHER ==
--- NOTE | 2019-11-19 12:56 | XR ---
EXAMINATION TYPE: XR abdomen 1V DATE OF EXAM: 11/19/2019 COMPARISON: 09/22/2019 HISTORY: Pain, history kidney stones TECHNIQUE: One view abdominal series FINDINGS: The osseous structures are intact. The bowel gas pattern is nonspecific. There is a double-J ureteral stent. Distal margin this stent is stable relative the previous exam. Postsurgical changes are noted . Bilateral vascular stents. Arthropathy of the hips and vascular calcifications are seen. Ostomy is se en with postsurgical change. Hypertrophic and degenerative change of the spine. No definite suspiciou s calcifications. IMPRESSION: 1. Nonspecific abdomen. 2. Ureteral stent is stable in position relative to the prior exam.
== END | disposition home or self-care (01) ==
LOC: RADXRMAIN 11:46
PROVIDERS: ATTEND Internal Medicine
DX: R10.9 Unspecified abdominal pain (principal); Z96.0 Presence of urogenital implants
CPT/HCPCS: 74018

== ENCOUNTER 2024-07-06 21:48 | Inpatient (IN) | payer MEDICARE, OTHER ==
[2024-07-06 23:05] LABS: Basophils % (A) 0 %; Eosinophils # (A) 0.1 k/uL (0-0.7); Eosinophils % (A) 1 %; HCT 39.3 % (39.0-53.0); Lymphocytes # (A) 2.1 k/uL (1.0-4.8); Lymphocytes % (A) 25 %; MCH 30.5 pg (25.0-35.0); MCV 92.5 fL (80.0-100.0); Mean Platelet Volume 9.1; Monocytes # (A) 0.5 k/uL (0-1.0); Monocytes % (A) 6 %; Neutrophils # (A) 5.3 k/uL (1.3-7.7); Neutrophils % (A) 64 %; Platelet Count 209 k/uL (150-450); RBC 4.24 m/uL (4.30-5.90); RDW 12.8 % (11.5-15.5); WBC 8.2 k/uL (3.8-10.6)
[2024-07-06 23:13] LABS: ALT 80 U/L (4-49); AST 165 U/L (17-59); African American GFR (CKD) 88 (>60 ml/min/1.73 sqM); Albumin 3.6 g/dL (3.5-5.0); Alkaline Phosphatase 82 U/L (38-126); Anion Gap 6 mmol/L; Blood Urea Nitrogen 15 mg/dL (9-20); Carbon Dioxide 27 mmol/L (22-30); Chloride 106 mmol/L (98-107); Glucose 119 mg/dL (74-99); Non-African American GFR(CKD) 76 (>60 ml/min/1.73 sqM); Potassium 3.6 mmol/L (3.5-5.1); Sodium 139 mmol/L (137-145); Total Bilirubin 0.4 mg/dL (0.2-1.3); Total Protein 6.3 g/dL (6.3-8.2)
--- NOTE | 2024-07-06 23:36 | ED ---
Chest Pain HPI - General Chief Complaint: Chest Pain Stated Complaint: Chest pain Time Seen by Provider: 07/06/24 22:00 Source: EMS Mode of arrival: EMS Limitations: altered mental status - History of Present Illness Initial Comments: 88-year-old male who presents emergency department as a transfer from [facility]. Patient has a history of dementia, cardiovascular disease. He had some chest pain which took him into [facility]. First troponin was 0.028. Second troponin increased to 0.119. Patient was given an aspirin and transferred to our facility for cardiology evaluation. Patient does see Dr. Lindsay and has several stents in his heart. Patient was not heparinized as he recently had revision of his colostomy on Saturday at [facility]. He has been off of aspirin and Pletal and was told to stay off of it for 10 days. Patient arrives and states that he is pain-free. No fevers, chills or cough. Patient found to be markedly hypertensive at [facility] with a blood pressure of 208/80. No other alleviating, precipitating modifying factors - Related Data Home Medications Medication Instructions Recorded Confirmed Multivitamins, Thera [Multivitamin 1 tab PO DAILY 07/16/17 05/31/19 (formulary)] amLODIPine [Norvasc] 10 mg PO DAILY 07/16/17 05/31/19 Aspirin 325 mg PO HS 12/24/17 05/31/19 lisinopriL 30 mg PO DAILY 01/08/19 05/31/19 EPINEPHrine (Auto Inject) [Epipen] 0.3 mg IM ONCE PRN 05/31/19 05/31/19 Triamcinolone 0.1% Cream [Kenalog 1 applicatio TOPICAL BID 05/31/19 05/31/19 0.1% Cream] Previous Rx's Medication Instructions Recorded Atorvastatin [Lipitor] 80 mg PO HS tab 04/10/17 Pantoprazole [Protonix] 40 mg PO DAILY #60 tablet.dr 12/27/17 Sennosides-Docusate Sodium 1 each PO BID #60 tab 06/03/19 [Senokot-S] polyethylene glycoL 3350 [Miralax] 17 gm PO DAILY #30 powd.pack 06/03/19 Allergies Allergy/AdvReac Type Severity Reaction Status Date / Time zolpidem tartrate Allergy Severe Rash/Hives Verified 07/06/24 22:11 [From Ambien] bee venom protein (honey bee) Allergy Anaphylaxis Verified 07/06/24 22:11 lorazepam [From Ativan] Allergy Unknown Verified 07/06/24 22:11 Penicillins Allergy Unknown Verified 07/06/24 22:11 Review of Systems ROS Statement: Those systems with pertinent positive or pertinent negative responses have been documented in the HPI. ROS Other: All systems not noted in ROS Statement are negative. Past Medical History Past Medical History: Coronary Artery Disease (CAD), Cancer, Chest Pain / Angina, Hyperlipidemia, Hypertension, Myocardial Infarction (ME), Osteoarthritis (OA), Renal Disease, Skin Disorder, Vascular Disorder Additional Past Medical History / Comment(s): 1998 Colon/rectal cancer- colectomy/colostomy/chemo,radiation, psoriasis, kidney stones, fx. neck & back/concussion from a fall years ago, 2006 pneumonia with bacteremia, diverticular dx.hospitalized in november at [facility] Last Myocardial Infarction Date:: 08/11/16 History of Any Multi-Drug Resistant Organisms: None Reported Past Surgical History: Appendectomy, Bladder Surgery, Bowel Resection, Cholecystectomy, Heart Catheterization With Stent, Orthopedic Surgery Additional Past Surgical History / Comment(s): Sep 2016 Cardiac stents x2,09/11/16 PTCA with stent to PDA branch of the RCA. Other surgical hx: 08/11/16 CARDIAC STENT. LEFT/RIGHT CATARACT, COLON RESECTION WITH COLOSTOMY, colonoscopies, bilateral iliac STENTs. R Carotid angioplasty, vertebral stent, right shoulder surg for small cracked bone, cystoscopies, lithotripsy, right ureteral stent, lumbar spurs removed, cervical fusion, feeding tube post cervical sx, laparotomy with extensive lysis of adhesions. Past Anesthesia/Blood Transfusion Reactions: No Reported Reaction Additional Past Anesthesia/Blood Transfusion Reaction / Comment(s): no hx blood transfusions Date of Last Stent Placement:: 09/11/16 Past Psychological History: No Psychological Hx Reported Past Alcohol Use History: None Reported Past Drug Use History: None Reported - Past Family History Father Additional Family Medical History / Comment(s): AGE 90 HEART Mother Family Medical History: Myocardial Infarction (ME) Additional Family Medical History / Comment(s): AT AGE 60 MASSIVE ME General Exam Limitations: altered mental status General appearance: alert, in no apparent distress Head exam: Present: atraumatic, normocephalic, normal inspection Eye exam: Present: normal appearance, PERRL, EOMI. Absent: scleral icterus, conjunctival injection, periorbital swelling ENT exam: Present: normal exam, mucous membranes moist Neck exam: Present: normal inspection. Absent: tenderness, meningismus, lymphadenopathy Respiratory exam: Present: normal lung sounds bilaterally. Absent: respiratory distress, wheezes, rales, rhonchi, stridor Cardiovascular Exam: Present: bradycardia, irregular rhythm GI/Abdominal exam: Present: soft, normal bowel sounds. Absent: distended, tenderness, guarding, rebound, rigid Neurological exam: Present: alert Psychiatric exam: Present: normal affect, normal mood Course Vital Signs 07/06/24 07/07/24 07/07/24 21:58 00:40 02:00 Temperature 97.7 F Pulse Rate 55 L 46 L 46 L Respiratory 17 18 18 Rate Blood Pressure 193/90 189/87 150/60 O2 Sat by Pulse 97 94 L 93 L Oximetry Chest Pain MDM - MDM Was pt. sent in by a medical professional or institution (, PA, SUPERVISOR LIQUEFACTION, urgent care, hospital, or jail...) When possible be specific @ -Patient was sent from [facility] Did you speak to anyone other than the patient for history (EMS, parent, family, police, friend...)? What history was obtained from this source @ -I spoke with the transferring physician, Dr. Ronquillo Did you review nursing and triage notes (agree or disagree)? Why? @ -I reviewed and agree with nursing and triage notes Were old charts reviewed (outside hosp., previous admission, EMS record, old EKG, old radiological studies, urgent care reports/EKG's, jail records)? Report findings @ -I reviewed the records from [facility] Differential Diagnosis (chest pain, altered mental status, abdominal pain women, abdominal pain men, vaginal bleeding, weakness, fever, dyspnea, syncope, headache, dizziness, GI bleed, back pain, seizure, CVA, palpatations, mental health, musculoskeletal)? @ -Differential Chest Pain: Stable Angina, Unstable Angina, STEMI, NSTEMI Aortic Dissection, Pneumothorax, Musculoskeletal, Esophageal Spasm GERD, Cholecystitis, Pancreatitis, Zoster, this is not meant to be an all-inclusive list. EKG interpreted by me (3pts min.). @ -EKG performed at 2304 demonstrates possible third-degree block with a rate of 48. QRS 117. QTc of 461. Repeat EKG done at 2311 demonstrates sinus rhythm with a prolonged KS interval. Rate of 62. QRS 113. QTc of 471. X-rays interpreted by me (1pt min.). @ -None done CT interpreted by me (1pt min.). @ -None done U/S interpreted by me (1pt. min.). @ -None done What testing was considered but not performed or refused? (CT, X-rays, U/S, labs)? Why? @ -None What meds were considered but not given or refused? Why? @ -None Did you discuss the management of the patient with other professionals (professionals i.e. Dr., PA, SUPERVISOR LIQUEFACTION, lab, RT, psych nurse, executive secretary social welfare, plate washer, teacher, adult parole officer, telephonic nurse case manager)? Give summary @ -Spoke with Dr. Lindsay x 2 in regards to the patient's presence in the emergency department as well as his troponin which was found on our laboratory studies. Dr. Lindsay agrees that the patient should be heparinized with nitro and admitted. I also spoke with Dr. Schaefer for admission Was smoking cessation discussed for >3mins.? @ -No Was critical care preformed (if so, how long)? @ -Yes, 35 minutes Were there social determinants of health that impacted care today? How? (Homelessness, low income, unemployed, alcoholism, drug addiction, transportation, low edu. Level, literacy, decrease access to med. care, care home, rehab)? @ -No Was there de-escalation of care discussed even if they declined (Discuss DNR or withdrawal of care, Hospice)? DNR status @ -Yes and family want him to remain a full code What co-morbidities impacted this encounter? (DM, HTN, Smoking, COPD, CAD, Cancer, CVA, ARF, Chemo, Hep., AIDS, mental health diagnosis, sleep apnea, morbid obesity)? @ -Cardiovascular disease with stent placement Was patient admitted / discharged? Hospital course, mention meds given and route, prescriptions, significant lab abnormalities, going to OR and other pertinent info. @ -Upon arrival patient seen and evaluated in bed 26. Thorough history and physical exam was performed. I did review the transfer packet. Repeat troponin was performed. I did speak with Dr. Lindsay in regards to the patient's elevated troponin at our facility. He agrees that the patient should be heparinized even though he had recent colostomy revision. Will evaluate for bleeding at this time. Patient has already received an aspirin at outside facility. Recommended he be admitted, n.p.o. for cardiology evaluation in the morning. EKG does demonstrate intermittent possible third-degree heart block into a normal sinus rhythm. Dr. Lindsay is aware of this and does recommend no use of any AV areli agents. Patient will be admitted to Dr. Schaefer Undiagnosed new problem with uncertain prognosis? @ -No Drug Therapy requiring intensive monitoring for toxicity (Heparin, Nitro, Insulin, Cardizem)? @ -Heparin Were any procedures done? @ -No Diagnosis/symptom? @ -Acute chest pain, NSTEMI Acute, or Chronic, or Acute on Chronic? @ -Acute Uncomplicated (without systemic symptoms) or Complicated (systemic symptoms)? @Complicated Side effects of treatment? @ -No Exacerbation, Progression, or Severe Exacerbation? @ -No Poses a threat to life or bodily function? How? (Chest pain, USA, ME, pneumonia, PE, COPD, DKA, ARF, appy, cholecystitis, CVA, Diverticulitis, Homicidal, Suicidal, threat to staff... and all critical care pts) @ -Yes Disposition Clinical Impression: CAD (coronary artery disease), NSTEMI (non-ST elevated myocardial infarction), Chest pain Disposition: ADMITTED IP TO THIS HOSP Condition: Serious Is patient prescribed a controlled substance at d/c from ED?: No Time of Disposition: 00:07 Decision to Admit Reason: Admit from EC Decision Date: 07/07/24 Decision Time: 00:07
[2024-07-06] MEDS: ATORVASTATIN 80 MG TAB PO SCH (23:50)
[2024-07-06] MEDS: lisinopriL 10 MG TAB PO SCH (23:51)
[2024-07-06] MEDS: NITROGLYCERIN OINT 1 INCH/GM PACKET TOPICAL STA (23:51)
[2024-07-06] MEDS: HEPARIN SODIUM 1,000 UN/ML (10ML VL) IV ONE (23:58)
[2024-07-07] MEDS: HEPARIN SOD,PORK IN 0.45% NACL 25,000 UNIT in 0.45% NACL 1 250ML.BAG IV SCH
[2024-07-07] MEDS ORDERED: NALOXONE 0.4 MG/ML 1 ML VIAL IV PRN (00:07)
[2024-07-07 00:39] LABS: Partial Thromboplastin Time 23.1 sec (22.0-30.0); Prothrombin Time 10.9 sec (10.0-12.5)
[2024-07-07 06:24] LABS: Basophils % (A) 0 %; Eosinophils # (A) 0.1 k/uL (0-0.7); Eosinophils % (A) 1 %; HCT 39.8 % (39.0-53.0); HGB 13.1 gm/dL (13.0-17.5); Lymphocytes # (A) 1.8 k/uL (1.0-4.8); Lymphocytes % (A) 20 %; MCH 30.6 pg (25.0-35.0); MCHC 32.9 g/dL (31.0-37.0); Mean Platelet Volume 9.7; Monocytes # (A) 0.5 k/uL (0-1.0); Monocytes % (A) 6 %; Neutrophils # (A) 6.3 k/uL (1.3-7.7); Neutrophils % (A) 71 %; Platelet Count 213 k/uL (150-450); RBC 4.28 m/uL (4.30-5.90); WBC 8.9 k/uL (3.8-10.6)
[2024-07-07 06:33] LABS: Prothrombin Time 10.8 sec (10.0-12.5)
[2024-07-07] MEDS: HEPARIN SODIUM 1,000 UN/ML (10ML VL) IV PRN (07:44)
[2024-07-07] MEDS: ASPIRIN 81 MG PO SCH (09:57)
[2024-07-07] MEDS: CLOPIDOGREL 75 MG TAB PO SCH (09:57)
[2024-07-07] MEDS: amLODIPine 10 MG TAB PO SCH (09:58)
--- NOTE | 2024-07-07 11:24 | P.CRDCN ---
History of Present Illness Consult date: 07/07/24 Reason for Consult (text): NSTEMI History of present illness: This is an 88-year-old male patient of Dr. Lindsay with past medical history of coronary artery disease with previous stenting of the RCA and left circumflex and LAD, hypertension, dyslipidemia, carotid atherosclerosis, lower extremity peripheral artery disease, dementia, colon cancer status post colectomy, colostomy, chemoradiation. Patient had recent revision of his colostomy on Saturday at [facility]. He has been off aspirin and Pletal and to be off for total 10 days. Patient was initially taken to [facility] and due to elevated troponin of 0.028 followed by 0.119, patient was transferred to [facility]. Patient is seen today in the emergency center. He denies having any chest pain or shortness of breath. Patient is quite confused and unable to give reliable history. Later, family were interviewed at the bedside. Yesterday, patient did not feel well and he was rubbing his chest. Symptoms worsened and patient was taken to the hospital. Discussed treatment options with the family, patient's and daughter in regards to cardiac catheterization and possble PCI verses medication management. Family would like to pursue medical management at this time. Blood pressure 147/92, heart rate 53, pulse ox 97% on room air. Patient is seen today in the emergency center waiting for bed on the cardiac stepdown unit. Patient has been started on heparin drip. EKG: Sinus bradycardia with second-degree Wenckebach Laboratory studies: WBC 8.9, hemoglobin 13.1. Troponins 9.8, 15.2, 16.8. Electrolytes normal. BUN 15 creatinine 0.9. AST 165, ALT 80. Home cardiac medications: Amlodipine 10 mg daily, aspirin 325 mg at bedtime, atorvastatin 80 mg at bedtime, Pletal 50 mg twice daily, lisinopril 30 mg daily. Cardiac catheterization in 2017 revealed intermediate in-stent restenosis of the distal RCA, critical in-stent restenosis of the OM1, patent stent in the mid and mid to distal LAD Echocardiogram in 2018 was normal EF Lexiscan stress test performed 11/07/2022 revealed small apical ischemia. Review Of Systems: At the time of my exam: CONSTITUTIONAL: Denies fever or chills. HEENT: Denies blurred vision, vision changes, or eye pain. Denies hemoptysis CARDIOVASCULAR: Denies chest pain. Denies orthopnea. Denies PND. Denies palpitations RESPIRATORY: Denies shortness of breath. GASTROINTESTINAL: Denies abdominal pain. Denies nausea or vomiting. HEMATOLOGIC: Denies bleeding disorders. GENITOURINARY: Denies any blood in urine. SKIN: Denies puritis. Denies rash. Physical examination: Gen: This is an 88-year-old male in no acute distress. VS: reviewed HEENT: Head is atraumatic, normocephalic. Pupils equal, round. Sclerae is anict michelle. NECK: Supple. No JVD. LUNGS: Clear to auscultation. No wheezes or rhonchi. No intercostal r etractions. HEART: Regular rate and rhythm. Systolic murmur at the right upper sternal border. ABDOMEN: Soft No tenderness. EXTREMITIES: No pedal edema. No calf tenderness. NEUROLOGICAL: Patient is awake, alert and confused. Assessment: NSTEMI with plan for medical management Bradycardia and second-degree Wenckebach History of coronary artery disease with previous stenting of the RCA, left ci rcumflex and LAD Hypertension Dyslipidemia Carotid atherosclerosis Peripheral artery disease Dementia Plan: Resume patient's home cardiac medications with the following changes No BB due to bradycardia and second-degree Wenckebach Start patient on aspirin 81 mg daily, atorvastatin 80 mg daily, Plavix 75 mg daily Obtain 2-D echocardiogram and Doppler study to assess cardiac structure and function Monitor patient over the next 1 to 2 days, plan to ambulate tomorrow and monitor for symptoms Continue heparin drip for 24 hours Further recommendations to follow based upon clinical course Thank you kindly for this consultation. Nurse practitioner note has been reviewed, I agree with documented findings and plan of care. Patient was seen and examined. 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 neck & ba ck/concussion from a fall years ago, 2006 pneumonia with bacteremia, diverticular dx.hospitalized in november at [facility] Last Myocardial Infarction Date:: 08/11/16 History of Any Multi-Drug Resistant Organisms: None Reported Past Surgical History: Appendectomy, Bladder Surgery, Bowel Resection, Cholecystectomy, Heart Catheterization With Stent, Orthopedic Surgery Additional Past Surgical History / Comment(s): Sep 2016 Cardiac stents x2,09/11/16 PTCA with stent to PDA branch of the RCA. Other surgical hx: 08/11/16 CARDIAC STENT. LEFT/RIGHT CATARACT, COLON RESECTION WITH COLOSTOMY, colonoscopies, bilateral iliac STENTs. R Carotid angioplasty, vertebral stent, right shoulder surg for small cracked bone, cystoscopies, lithotripsy, right ureteral stent, lumbar spurs removed, cervical fusion, feeding tube post cervical sx, laparotomy with extensive lysis of adhesions. Past Anesthesia/Blood Transfusion Reactions: No Reported Reaction Additional Past Anesthesia/Blood Transfusion Reaction / Comment(s): no hx blood transfusions Date of Last Stent Placement:: 09/11/16 Past Psychological History: No Psychological Hx Reported Past Alcohol Use History: None Reported Past Drug Use History: None Reported - Past Family History Father Additional Family Medical History / Comment(s): AGE 90 HEART Mother Family Medical History: Myocardial Infarction (AL) Additional Family Medical History / Comment(s): AT AGE 60 MASSIVE AL Medications and Allergies Home Medications Medication Instructions Recorded Confirmed Type Atorvastatin [Lipitor] 80 mg PO HS tab 04/10/17 07/07/24 Rx Multivitamins, Thera [Multivitamin 1 tab PO DAILY 07/16/17 07/07/24 History (formulary)] amLODIPine [Norvasc] 10 mg PO DAILY 07/16/17 07/07/24 History Aspirin 325 mg PO HS 12/24/17 07/07/24 History Pantoprazole [Protonix] 40 mg PO DAILY #60 tablet. 12/27/17 07/07/24 Rx lisinopriL 30 mg PO HS 01/08/19 07/07/24 History EPINEPHrine (Auto Inject) [Epipen] 0.3 mg IM ONCE PRN 05/31/19 07/07/24 History Cholecalciferol [Vitamin D3 (25 50 mcg PO DAILY 07/07/24 07/07/24 History Mcg = 1000 Iu)] Cyanocobalamin (Vitamin B-12) 1,000 mcg PO DAILY 07/07/24 07/07/24 History [Vitamin B-12] Docusate Calcium 240 mg PO DAILY 07/07/24 07/07/24 History Donepezil [Aricept] 10 mg PO DAILY 07/07/24 07/07/24 History Ezetimibe [Zetia] 10 mg PO HS 07/07/24 07/07/24 History Memantine HCl [Memantine HCl ER] 28 mg PO DAILY 07/07/24 07/07/24 History Potassium Bicarbonate/Cit AC 10 meq PO DAILY 07/07/24 07/07/24 History [K-Lyte] busPIRone HCl [Buspar] 10 mg PO TID PRN 07/07/24 07/07/24 History cilostazoL [Pletal] 50 mg PO BID 07/07/24 07/07/24 History Allergies Allergy/AdvReac Type Severity Reaction Status Date / Time zolpidem tartrate Allergy Severe Rash/Hives Verified 07/07/24 08:02 [From Ambien] bee venom protein (honey bee) Allergy Anaphylaxis Verified 07/07/24 08:02 lorazepam [From Ativan] Allergy Unknown Verified 07/07/24 08:02 Penicillins Allergy Unknown Verified 07/07/24 08:02 Physical Exam Vitals: Vital Signs Temp Pulse Resp BP Pulse Ox 07/07/24 04:37 98.0 F 53 L 17 147/92 97 07/07/24 02:00 46 L 18 150/60 93 L 07/07/24 00:40 46 L 18 189/87 94 L 07/06/24 21:58 97.7 F 55 L 17 193/90 97 Intake and Output 07/06/24 07/07/24 07/07/24 22:59 06:59 14:59 Intake Total 76.849 Balance 76.849 Intake: Intake, IV Titration 76.849 Amount Heparin Sod,Pork in 0.45% 76.849 NaCl 25,000 unit In 0.45 % NaCl 1 250ml.bag @ 9.8 UNITS/KG/HR 10.002 mls/hr IV .Q24H [facility] Rx#: [id number] Other: Weight 102.058 kg Results 07/07/24 05:53 07/06/24 22:49 Cardiac Enzymes 07/06/24 07/06/24 07/07/24 Range/Units 22:49 22:49 03:17 AST 165 H (17-59) U/L Troponin I 9.800 H* 15.200 H* (0.000-0.034) ng/mL 07/07/24 Range/Units 05:53 AST (17-59) U/L Troponin I 16.800 H* (0.000-0.034) ng/mL Coagulation 07/07/24 07/07/24 07/07/24 Range/Units 00:04 05:53 05:53 PT 10.9 10.8 (10.0-12.5) sec APTT 23.1 40.8 H (22.0-30.0) sec CBC 07/06/24 07/07/24 Range/Units 22:49 05:53 WBC 8.2 8.9 (3.8-10.6) k/uL RBC 4.24 L 4.28 L (4.30-5.90) m/uL Hgb 13.0 13.1 (13.0-17.5) gm/dL Hct 39.3 39.8 (39.0-53.0) % Plt Count 209 213 (150-450) k/uL Comprehensive Metabolic Panel 07/06/24 Range/Units 22:49 Sodium 139 (137-145) mmol/L Potassium 3.6 (3.5-5.1) mmol/L Chloride 106 (98-107) mmol/L Carbon Dioxide 27 (22-30) mmol/L BUN 15 (9-20) mg/dL Creatinine 0.90 (0.66-1.25) mg/dL Glucose 119 H (74-99) mg/dL Calcium 9.0 (8.4-10.2) mg/dL AST 165 H (17-59) U/L ALT 80 H (4-49) U/L Alkaline Phosphatase 82 (38-126) U/L Total Protein 6.3 (6.3-8.2) g/dL Albumin 3.6 (3.5-5.0) g/dL Current Medications Generic Name Dose Route Start Last Admin Trade Name Freq PRN Reason Stop Dose Admin Atorvastatin Calcium 80 mg 07/06/24 23:15 07/06/24 23:50 Atorvastatin 80 Mg Tab PO 80 mg HS SERGO Administration Heparin Sodium (Porcine) 0 unit 07/06/24 23:26 07/07/24 07:44 Heparin Sodium 1,000 Un/Ml (10ml Vl) IV 2,551.45 unit PER PROTOCOL PRN Administration Low PTT Protocol Heparin Sodium/Sodium Chloride 250 mls @ 10.002 mls/hr 07/06/24 23:30 07/07/24 07:41 25,000 unit/ Sodium Chloride IV 11.8 units/kg/hr .Q24H SERGO 12.043 mls/hr Titration Protocol 9.8 UNITS/KG/HR Lisinopril 30 mg 07/06/24 23:15 07/06/24 23:51 Lisinopril 10 Mg Tab PO 30 mg HS SERGO Administration Naloxone HCl 0.2 mg 07/07/24 00:07 Naloxone 0.4 Mg/Ml 1 Ml Vial IV Q2M PRN Opioid Reversal Intake and Output 07/06/24 07/07/24 07/07/24 22:59 06:59 14:59 Intake Total 76.849 Balance 76.849 Intake: Intake, IV Titration 76.849 Amount Heparin Sod,Pork in 0.45% 76.849 NaCl 25,000 unit In 0.45 % NaCl 1 250ml.bag @ 9.8 UNITS/KG/HR 10.002 mls/hr IV .Q24H [facility] Rx#: [id number] Other: Weight 102.058 kg 07/07/24 05:53 07/06/24 22:49
[2024-07-07] MEDS: DONEPEZIL 10 MG TAB PO SCH (12:17)
[2024-07-07] MEDS: CYANOCOBALAMIN 500 MCG TAB PO SCH (12:17)
[2024-07-07] MEDS: MEMANTINE 10 MG TAB PO SCH (12:18)
[2024-07-07] MEDS: ISOSORBIDE MONONITRATE ER 30 MG TAB.ER.24H PO SCH (12:18)
[2024-07-07] MEDS: MULTIVITAMINS, THERA 1 EACH TAB PO SCH (12:18)
[2024-07-07] MEDS: PANTOPRAZOLE 40 MG TABLET PO SCH (12:18)
[2024-07-07] MEDS: busPIRone HCl 10 MG TAB PO PRN (12:18)
--- NOTE | 2024-07-07 17:47 | P.HPIM ---
History of Present Illness H&P Date: 07/07/24 Chief Complaint: Chest pressure Pleasant 88-year-old patient who follows with [facility] Gavin with Dr. Maurer. Medical history includes CAD with stent in 2017, hypertension, hyperlipidemia, osteoarthritis, CKD, rectal colon cancer 99 with colectomy colostomy and chemoradiation, coronary angioplasty vertebral stent and other surgical history. Patient is accompanied in the ER by his daughter and . Patient has significant cognitive impairment his history is mainly given by the daughter. Yesterday patient developed pain across the chest. Accompanied by nausea. Earlier in the day was complaining of not feeling well. He did not complain of any dizziness or lightheadedness. The pain go down his left arm. He was taken down to the local hospital from where he was transferred here. At the local hospital he was found to have T wave changes from V1-V6. And patient's troponin went up. Cardiology was consulted when he arrived. And was put on IV heparin. This morning patient not complaining of any chest pain. Patient is able to recognize family.'s does often repeat questions as he forgets. 3 days ago he had his stoma revision done. And normally wears a diaper because of incontinence. Review of systems: GEN.: Tired EYES: None HEENT: None NECK: None RESPIRATORY: None CARDIOVASCULAR: [As above GASTROINTESTINAL: Stoma revision done 3 days ago GENITOURINARY: Some urine incontinence MUSCULOSKELETAL: Some joint pains LYMPHATICS: [None HEMATOLOGICAL: None PSYCHIATRY: Forgetful NEUROLOGICAL: None Social history: Patient lives with his daughter's family. And his . No smoking no alcohol. 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 EYES: Pupils equal. Conjunctiva gordon l. HEENT: External appearance of nose and ears normal, oral cavity grossly normal decreased hearing. NECK: JVD not raised; masses not palpable. HEART: First and second heart sounds are normal; no edema. LUNGS: Respiratory rate normal; clear to auscultation. ABDOMEN: Soft, nontender, liver spleen not palpable, no masses palpable. PSYCH: Patient able to answer question but rather forgetful l. MUSCULOSKELETAL:No Clubbing/cyanosis;muscles-grossly intact. OA NEUROLOGICAL: Cranial nerves grossly intact; no facial asymmetry, power and sensation grossly intact. LYMPHATICS: No lymph nodes palpable in the axilla and neck INVESTIGATIONS, reviewed in the clinical context: July 07, 2024: White count 8.9 hemoglobin 13.1 platelets 213 July 06: Sodium 139 potassium 3.6 creatinine 0.9 Troponin I 9.8, 15.2, 16.8 EKG tracing personally reviewed by me-flipped T waves on V4-V6 and 1 and aVL Assessment plan: -Acute non-ST elevation myocardial infarction. In a patient with known underlying CAD with a prior stent in 2016. 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 Aspirin. Lipitor. 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 Namenda. -Chronic colostomy -Primary osteoarthritis Pain medication as needed Care was discussed with the patient, his and daughter at the bedside. Cardiology on the case. Past Medical History Past Medical History: Coronary Artery Disease (CAD), Cancer, Chest Pain / Angina, Hyperlipidemia, Hypertension, Myocardial Infarction (PR), Osteoarthritis (OA), Renal Disease, Skin Disorder, Vascular Disorder Additional Past Medical History / Comment(s): 1998 Colon/rectal cancer- colectomy/colostomy/chemo,radiation, psoriasis, kidney stones, fx. neck & back/concussion from a fall years ago, 2006 pneumonia with bacteremia, diverticular dx.hospitalized in november at [facility] Last Myocardial Infarction Date:: 08/11/16 History of Any Multi-Drug Resistant Organisms: None Reported Past Surgical History: Appendectomy, Bladder Surgery, Bowel Resection, Cholecystectomy, Heart Catheterization With Stent, Orthopedic Surgery Additional Past Surgical History / Comment(s): Sep 2016 Cardiac stents x2,09/11/16 PTCA with stent to PDA branch of the RCA. Other surgical hx: 08/11/16 CARDIAC STENT. LEFT/RIGHT CATARACT, COLON RESECTION WITH COLOSTOMY, colonoscopies, bilateral iliac STENTs. R Carotid angioplasty, vertebral stent, right shoulder surg for small cracked bone, cystoscopies, lithotripsy, right ureteral stent, lumbar spurs removed, cervical fusion, feeding tube post cervical sx, laparotomy with extensive lysis of adhesions. Past Anesthesia/Blood Transfusion Reactions: No Reported Reaction Additional Past Anesthesia/Blood Transfusion Reaction / Comment(s): no hx blood transfusions Date of Last Stent Placement:: 09/11/16 Past Psychological History: No Psychological Hx Reported Past Alcohol Use History: None Reported Past Drug Use History: None Reported - Past Family History Father Additional Family Medical History / Comment(s): AGE 90 HEART Mother Family Medical History: Myocardial Infarction (PR) Additional Family Medical History / Comment(s): AT AGE 60 MASSIVE PR Medications and Allergies Home Medications Medication Instructions Recorded Confirmed Type Atorvastatin [Lipitor] 80 mg PO HS tab 04/10/17 07/07/24 Rx Multivitamins, Thera [Multivitamin 1 tab PO DAILY 07/16/17 07/07/24 History (formulary)] amLODIPine [Norvasc] 10 mg PO DAILY 07/16/17 07/07/24 History Aspirin 325 mg PO HS 12/24/17 07/07/24 History Pantoprazole [Protonix] 40 mg PO DAILY #60 tablet. 12/27/17 07/07/24 Rx lisinopriL 30 mg PO HS 01/08/19 07/07/24 History EPINEPHrine (Auto Inject) [Epipen] 0.3 mg IM ONCE PRN 05/31/19 07/07/24 History Cholecalciferol [Vitamin D3 (25 50 mcg PO DAILY 07/07/24 07/07/24 History Mcg = 1000 Iu)] Cyanocobalamin (Vitamin B-12) 1,000 mcg PO DAILY 07/07/24 07/07/24 History [Vitamin B-12] Docusate Calcium 240 mg PO DAILY 07/07/24 07/07/24 History Donepezil [Aricept] 10 mg PO DAILY 07/07/24 07/07/24 History Ezetimibe [Zetia] 10 mg PO HS 07/07/24 07/07/24 History Memantine HCl [Memantine HCl ER] 28 mg PO DAILY 07/07/24 07/07/24 History Potassium Bicarbonate/Cit AC 10 meq PO DAILY 07/07/24 07/07/24 History [K-Lyte] busPIRone HCl [Buspar] 10 mg PO TID PRN 07/07/24 07/07/24 History cilostazoL [Pletal] 50 mg PO BID 07/07/24 07/07/24 History Allergies Allergy/AdvReac Type Severity Reaction Status Date / Time zolpidem tartrate Allergy Severe Rash/Hives Verified 07/07/24 08:02 [From Ambien] bee venom protein (honey bee) Allergy Anaphylaxis Verified 07/07/24 08:02 lorazepam [From Ativan] Allergy Unknown Verified 07/07/24 08:02 Penicillins Allergy Unknown Verified 07/07/24 08:02 Physical Exam Vitals: Vital Signs Temp Pulse Resp BP Pulse Ox 07/07/24 04:37 98.0 F 53 L 17 147/92 97 07/07/24 02:00 46 L 18 150/60 93 L 07/07/24 00:40 46 L 18 189/87 94 L 07/06/24 21:58 97.7 F 55 L 17 193/90 97 Intake and Output 07/06/24 07/07/24 07/07/24 22:59 06:59 14:59 Intake Total 76.849 Balance 76.849 Intake: Intake, IV Titration 76.849 Amount Heparin Sod,Pork in 0.45% 76.849 NaCl 25,000 unit In 0.45 % NaCl 1 250ml.bag @ 9.8 UNITS/KG/HR 10.002 mls/hr IV .Q24H [facility] Rx#: [id number] Other: Weight 102.058 kg Results CBC & Chem 7: 07/07/24 05:53 07/06/24 22:49 Labs: Abnormal Lab Results - Last 24 Hours (Table) 07/06/24 07/06/24 07/06/24 Range/Units 22:49 22:49 22:49 RBC 4.24 L (4.30-5.90) m/uL APTT (22.0-30.0) sec Glucose 119 H (74-99) mg/dL AST 165 H (17-59) U/L ALT 80 H (4-49) U/L Troponin I 9.800 H* (0.000-0.034) ng/mL 07/07/24 07/07/24 07/07/24 Range/Units 03:17 05:53 05:53 RBC 4.28 L (4.30-5.90) m/uL APTT 40.8 H (22.0-30.0) sec Glucose (74-99) mg/dL AST (17-59) U/L ALT (4-49) U/L Troponin I 15.200 H* (0.000-0.034) ng/mL 07/07/24 Range/Units 05:53 RBC (4.30-5.90) m/uL APTT (22.0-30.0) sec Glucose (74-99) mg/dL AST (17-59) U/L ALT (4-49) U/L Troponin I 16.800 H* (0.000-0.034) ng/mL
[2024-07-07 20:28] VITALS: RESP 16
[2024-07-07] MEDS: EZETIMIBE 10 MG TAB PO SCH (20:28)
[2024-07-07] MEDS ORDERED: LISINOPRIL 30 MG PO SCH (21:00)
[2024-07-08 06:02] LABS: African American GFR (CKD) 74 (>60 ml/min/1.73 sqM); Anion Gap 6 mmol/L; Blood Urea Nitrogen 18 mg/dL (9-20); Carbon Dioxide 22 mmol/L (22-30); Chloride 112 mmol/L (98-107); Glucose 115 mg/dL (74-99); Non-African American GFR(CKD) 64 (>60 ml/min/1.73 sqM); Potassium 3.6 mmol/L (3.5-5.1); Sodium 140 mmol/L (137-145)
[2024-07-08 06:11] LABS: Basophils % (A) 0 %; Eosinophils # (A) 0.2 k/uL (0-0.7); Eosinophils % (A) 3 %; HGB 12.9 gm/dL (13.0-17.5); Lymphocytes # (A) 2.7 k/uL (1.0-4.8); Lymphocytes % (A) 33 %; MCH 30.8 pg (25.0-35.0); MCHC 33.8 g/dL (31.0-37.0); MCV 91.2 fL (80.0-100.0); Mean Platelet Volume 9.8; Monocytes # (A) 0.5 k/uL (0-1.0); Monocytes % (A) 6 %; Neutrophils # (A) 4.5 k/uL (1.3-7.7); Neutrophils % (A) 55 %; Platelet Count 210 k/uL (150-450); RBC 4.17 m/uL (4.30-5.90); RDW 13.6 % (11.5-15.5); WBC 8.2 k/uL (3.8-10.6)
[2024-07-08] MEDS: CHOLECALCIFEROL 25 MCG (1000 IU) TABLET PO SCH (08:29)
--- NOTE | 2024-07-08 08:51 | P.PN ---
Subjective Progress Note Date: 07/08/24 Reason for Consult (text): NSTEMI History of present illness: This is an 88-year-old male patient of Dr. Lindsay with past medical history of coronary artery disease with previous stenting of the RCA and left circumflex and LAD, hypertension, dyslipidemia, carotid atherosclerosis, lower extremity peripheral artery disease, dementia, colon cancer status post colectomy, colostomy, chemoradiation. Patient had recent revision of his colostomy on Saturday at [facility]. He has been off aspirin and Pletal and to be off for total 10 days. Patient was initially taken to [facility] and due to elevated troponin of 0.028 followed by 0.119, patient was transferred to [facility]. Patient is seen today in the emergency center. He denies having any chest pain or shortness of breath. Patient is quite confused and unable to give reliable history. Later, family were interviewed at the bedside. Yesterday, patient did not feel well and he was rubbing his chest. Symptoms worsened and patient was taken to the hospital. Discussed treatment options with the family, patient's and daughter in regards to cardiac catheterization and possble PCI verses medication management. Family would like to pursue medical management at this time. Blood pressure 147/92, heart rate 53, pulse ox 97% on room air. Patient is seen today in the emergency center waiting for bed on the cardiac stepdown unit. Patient has been started on heparin drip. EKG: Sinus bradycardia with second-degree Wenckebach Laboratory studies: WBC 8.9, hemoglobin 13.1. Troponins 9.8, 15.2, 16.8. Electrolytes normal. BUN 15 creatinine 0.9. AST 165, ALT 80. Home cardiac medications: Amlodipine 10 mg daily, aspirin 325 mg at bedtime, atorvastatin 80 mg at bedtime, Pletal 50 mg twice daily, lisinopril 30 mg daily. Cardiac catheterization in 2017 revealed intermediate in-stent restenosis of the distal RCA, critical in-stent restenosis of the OM1, patent stent in the mid and mid to distal LAD Echocardiogram in 2018 was normal EF Lexiscan stress test performed 11/07/2022 revealed small apical ischemia. 07/08 Patient is seen today in follow-up. He has been on a heparin drip. Heart rate has been in the 40s mostly all day. Blood pressure is elevated. Reviewed results of testing with the patient and family. There is no plan for any aggressive cardiac workup and plan for medical management only. Patient remains quite confused which is his baseline. Blood pressure 128/61, heart rate 58, pulse ox 96% on room air. WBC 8.2, hemoglobin 12.9. Sodium 140, potassium 3.6, creatinine 1.04. Physical examination: Gen: This is an 88-year-old male in no acute distress. VS: reviewed HEENT: Head is atraumatic, normocephalic. Pupils equal, round. Sclerae is anicteric. NECK: Supple. No JVD. LUNGS: Clear to auscultation. No wheezes or rhonchi. No intercostal retractions. HEART: Regular rate and rhythm. Systolic murmur at the right upper sternal border. ABDOMEN: Soft No tenderness. EXTREMITIES: No pedal edema. No calf tenderness. NEUROLOGICAL: Patient is awake, alert and confused. Assessment: NSTEMI with plan for medical management Bradycardia and second-degree Wenckebach History of coronary artery disease with previous stenting of the RCA, left circumflex and LAD Hypertension Dyslipidemia Carotid atherosclerosis Peripheral artery disease Dementia Plan: Continue current cardiac medications: Aspirin 81 mg daily, atorvastatin 80 mg daily, Plavix 75 mg daily Aspirin and Plavix for 6 weeks and then discontinue aspirin. Continue Plavix on ly Continue atorvastatin lifelong Discontinue heparin drip Ambulate patient and if pain-free this afternoon, patient is cleared for discharge from cardiology May follow-up in the office with Dr. Lindsay in 1 to 2 weeks. Nurse practitioner note has been reviewed, I agree with documented findings and plan of care. Patient was seen and examined. Objective - Vital Signs Vital signs: Vital Signs Temp 98 F 07/08/24 07:13 Pulse 67 07/08/24 07:13 Resp 16 07/08/24 05:26 BP 154/69 07/08/24 07:13 Pulse Ox 96 07/08/24 07:13 FiO2 Intake & Output 07/07/24 07/08/24 07/08/24 18:59 06:59 18:59 Intake Total 76.849 185.555 Output Total 101 Balance 76.849 84.555 Weight 81 kg Intake: IV 30 Heparin Sod,Pork in 0.45% 30 NaCl 25,000 unit In 0.45 % NaCl 1 250ml.bag @ 9.8 UNITS/KG/HR 10.002 mls/hr IV .Q24H [facility] Rx#: [id number] Intake, IV Titration 76.849 155.555 Amount Heparin Sod,Pork in 0.45% 76.849 155.555 NaCl 25,000 unit In 0.45 % NaCl 1 250ml.bag @ 9.8 UNITS/KG/HR 10.002 mls/hr IV .Q24H [facility] Rx#: [id number] Output: Urine 1 Stool 100 - Labs CBC & Chem 7: 07/08/24 05:38 07/08/24 05:38 Labs: Abnormal Lab Results - Last 24 Hours (Table) 07/07/24 07/08/24 07/08/24 Range/Units 14:00 05:38 05:38 RBC 4.17 L (4.30-5.90) m/uL Hgb 12.9 L (13.0-17.5) gm/dL Hct 38.0 L (39.0-53.0) % APTT 53.4 H (22.0-30.0) sec Chloride 112 H (98-107) mmol/L Glucose 115 H (74-99) mg/dL 07/08/24 Range/Units 05:38 RBC (4.30-5.90) m/uL Hgb (13.0-17.5) gm/dL Hct (39.0-53.0) % APTT 66.3 H (22.0-30.0) sec Chloride (98-107) mmol/L Glucose (74-99) mg/dL
[2024-07-08 11:01] VITALS: BP 128/61; PULSE 58; TEMP 98.1
--- NOTE | 2024-07-08 20:16 | P.DS ---
Providers Date of admission: 07/07/24 00:14 Expected date of discharge: 07/08/24 Attending physician: Gee Schaefer Consults: 07/07/24 00:14 Consult Physician ONCE Consulting Provider: [facility] Consult Reason/Comments: nstemi Do you want consulting provider notified?: Already Contacted Primary care physician: Agustina Maurer [facility] Course: Chief Complaint: Chest pressure Pleasant 88-year-old patient who follows with [facility] Alonso with Dr. Maurer. 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 Patient is accompanied in the ER by his daughter and . Patient has significant cognitive impairment his history is mainly given by the daughter. Yesterday patient developed pain across the chest. Accompanied by nausea. Earlier in the day was complaining of not feeling well. He did not complain of any dizziness or lightheadedness. The pain go down his left arm. He was taken down to the local hospital from where he was transferred here. At the local hospital he was found to have T wave changes from V1-V6. And patient's troponin went up. Cardiology was consulted when he arrived. And was put on IV heparin. This morning patient not complaining of any chest pain. Patient is able to recognize family.'s does often repeat questions as he forgets. 3 days ago he had his stoma revision done. And normally wears a diaper because of incontinence. July 08: Patient ruled in for NSTEMI. Seen by cardiology. For medical management. IV heparin was discontinued. Patient ambulate. Chest pain-free. Follow-up with Dr. Lindsay. Care was discussed with the family at the bedside. Discussion and discharge planning more than 35 minutes Social history: Patient lives with his daughter's family. And his . No smoking no alcohol. 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 Conjunctiva gordon l. HEENT: External appearance of nose and ears normal, oral cavity grossly normal decreased hearing. NECK: JVD not raised; masses not palpable. HEART: First and second heart sounds are normal; no edema. LUNGS: Respiratory rate normal; clear to auscultation. ABDOMEN: Soft, nontender, liver spleen not palpable, no masses palpable. PSYCH: Patient able to answer question but rather forgetful l. MUSCULOSKELETAL:No Clubbing/cyanosis;muscles-grossly intact. OA INVESTIGATIONS, reviewed in the clinical context: July 08: White count 8.2 hemoglobin 12.9 potassium 3.6 creatinine 1.04 July 07, 2024: White count 8.9 hemoglobin 13.1 platelets 213 July 06: Sodium 139 potassium 3.6 creatinine 0.9 Troponin I 9.8, 15.2, 16.8 EKG tracing personally reviewed by me-flipped T waves on V4-V6 and 1 and aVL Assessment plan: -Acute non-ST elevation myocardial infarction. In a patient with known underlying CAD with a prior stent in 2016. 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 BLANCHE Amor. Cleared for discharge Aspirin. Lipitor. 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 Namenda. -Chronic colostomy -Primary osteoarthritis Pain medication as needed -Full code Disposition: Home Past Medical History Past Medical History: Coronary Artery Disease (CAD), Cancer, Chest Pain / Angina, Hyperlipidemia, Hypertension, Myocardial Infarction (NM), Osteoarthritis (OA), Renal Disease, Skin Disorder, Vascular Disorder Additional Past Medical History / Comment(s): 1998 Colon/rectal cancer- colectomy/colostomy/chemo,radiation, psoriasis, kidney stones, fx. neck & back/concussion from a fall years ago, 2006 pneumonia with bacteremia, diverticular dx.hospitalized in [facility]mber at [facility] Last Myocardial Infarction Date:: 08/11/16 History of Any Multi-Drug Resistant Organisms: None Reported Past Surgical History: Appendectomy, Bladder Surgery, Bowel Resection, Cholecystectomy, Heart Catheterization With Stent, Orthopedic Surgery Additional Past Surgical History / Comment(s): Sep 2016 Cardiac stents x2,09/11/16 PTCA with stent to PDA branch of the RCA. Other surgical hx: 08/11/16 CARDIAC STENT. LEFT/RIGHT CATARACT, COLON RESECTION WITH COLOSTOMY, colonoscopies, bilateral iliac STENTs. R Carotid angioplasty, vertebral stent, right shoulder surg for small cracked bone, cystoscopies, lithotripsy, right ureteral stent, lumbar spurs removed, cervical fusion, feeding tube post cervical sx, laparotomy with extensive lysis of adhesions. Past Anesthesia/Blood Transfusion Reactions: No Reported Reaction Additional Past Anesthesia/Blood Transfusion Reaction / Comment(s): no hx blood transfusions Date of Last Stent Placement:: 09/11/16 Past Psychological History: No Psychological Hx Reported Past Alcohol Use History: None Reported Past Drug Use History: None Reported Plan - Discharge Summary Discharge Rx Participant: Yes New Discharge Prescriptions: New Aspirin 81 mg PO DAILY tab Clopidogrel [Plavix] 75 mg PO DAILY #30 tab Isosorbide Mononitrate ER [Imdur] 30 mg PO 1200 #30 tab lisinopriL 40 mg PO HS #30 tab Continue Atorvastatin [Lipitor] 80 mg PO HS tab amLODIPine [Norvasc] 10 mg PO DAILY Multivitamins, Thera [Multivitamin (formulary)] 1 tab PO DAILY Pantoprazole [Protonix] 40 mg PO DAILY #60 tablet. Memantine HCl [Memantine HCl ER] 28 mg PO DAILY Donepezil [Aricept] 10 mg PO DAILY Cholecalciferol [Vitamin D3 (25 Mcg = 1000 Iu)] 50 mcg PO DAILY Docusate Calcium 240 mg PO DAILY busPIRone HCl [Buspar] 10 mg PO TID PRN PRN Reason: Anxiety Ezetimibe [Zetia] 10 mg PO HS Cyanocobalamin (Vitamin B-12) [Vitamin B-12] 1,000 mcg PO DAILY Discontinued Aspirin 325 mg PO HS lisinopriL 30 mg PO HS EPINEPHrine (Auto Inject) [Epipen] 0.3 mg IM ONCE PRN PRN Reason: Anaphylaxis cilostazoL [Pletal] 50 mg PO BID Potassium Bicarbonate/Cit AC [K-Lyte] 10 meq PO DAILY Discharge Medication List Atorvastatin [Lipitor] 80 mg PO HS tab 04/10/17 [Rx] Multivitamins, Thera [Multivitamin (formulary)] 1 tab PO DAILY 07/16/17 [History] amLODIPine [Norvasc] 10 mg PO DAILY 07/16/17 [History] Pantoprazole [Protonix] 40 mg PO DAILY #60 tablet. 12/27/17 [Rx] Cholecalciferol [Vitamin D3 (25 Mcg = 1000 Iu)] 50 mcg PO DAILY 07/07/24 [History] Cyanocobalamin (Vitamin B-12) [Vitamin B-12] 1,000 mcg PO DAILY 07/07/24 [History] Docusate Calcium 240 mg PO DAILY 07/07/24 [History] Donepezil [Aricept] 10 mg PO DAILY 07/07/24 [History] Ezetimibe [Zetia] 10 mg PO HS 07/07/24 [History] Memantine HCl [Memantine HCl ER] 28 mg PO DAILY 07/07/24 [History] busPIRone HCl [Buspar] 10 mg PO TID PRN 07/07/24 [History] Aspirin 81 mg PO DAILY tab 07/08/24 [Rx] Clopidogrel [Plavix] 75 mg PO DAILY #30 tab 07/08/24 [Rx] Isosorbide Mononitrate ER [Imdur] 30 mg PO 1200 #30 tab 07/08/24 [Rx] lisinopriL 40 mg PO HS #30 tab 07/08/24 [Rx] Follow up Appointment(s)/Referral(s): Michele Lindsay MD [STAFF PHYSICIAN] - 1 Week (please call to schedule- can schedule at [facility] if needed ) Agustina Maurer MD [Primary Care Provider] - 1-2 days (please call to schedule ) Patient Instructions/Handouts: Angina (DC) Discharge Disposition: HOME WITH HOME HEALTH SERVICES
[2024-07-08] MEDS ORDERED: lisinopriL 20 MG TAB PO SCH (21:00)
== END 2024-07-08 13:17 | disposition home health service (06) | DRG 282 ==
LOC: EC 21:48 → EEVIPCON 07-07 00:14 → 3SCARD 07-07 00:14
PROVIDERS: ADMIT Hospitalist; ATTEND Hospitalist
DX: I21.4 Non-ST elevation (NSTEMI) myocardial infarction (principal); I44.1 Atrioventricular block, second degree; I73.9 Peripheral vascular disease, unspecified; G30.9 Alzheimer's disease, unspecified; F02.B0 Dementia in other diseases classified elsewhere, moderate, without behavioral disturbance, psychotic disturbance, mood disturbance, and anxiety; Z93.3 Colostomy status; I12.9 Hypertensive chronic kidney disease with stage 1 through stage 4 chronic kidney disease, or unspecified chronic kidney disease; N18.9 Chronic kidney disease, unspecified; I65.29 Occlusion and stenosis of unspecified carotid artery; Z95.828 Presence of other vascular implants and grafts; I25.10 Atherosclerotic heart disease of native coronary artery without angina pectoris; E78.5 Hyperlipidemia, unspecified; M19.91 Primary osteoarthritis, unspecified site; R32 Unspecified urinary incontinence; R00.1 Bradycardia, unspecified; Z95.5 Presence of coronary angioplasty implant and graft; I25.2 Old myocardial infarction; Z85.048 Personal history of other malignant neoplasm of rectum, rectosigmoid junction, and anus; Z98.1 Arthrodesis status; Z92.21 Personal history of antineoplastic chemotherapy; Z92.3 Personal history of irradiation; Z79.02 Long term (current) use of antithrombotics/antiplatelets; Z79.82 Long term (current) use of aspirin; Z79.899 Other long term (current) drug therapy; Z82.49 Family history of ischemic heart disease and other diseases of the circulatory system; Z90.49 Acquired absence of other specified parts of digestive tract; Z87.820 Personal history of traumatic brain injury
CPT/HCPCS: 36415; 80048; 80053; 84484; 85025; 85610; 85730; 93005; 96365; 96375; 96376; 99291